=== PATIENT | female | born 1960 | race Caucasian/White ===

== ENCOUNTER 2017-01-21 18:51 | Inpatient (IN) | payer MEDICARE, OTHER ==
[~2017-01-21] VITALS: Ht 157.5 cm; Wt 102.1 kg
[~2017-01-21 18:51] MED LIST: ACET-1574 PO; ACIDOPHILUS PROB1 MG PO; ASCO10002 PO; ASCO500T3 PO; BREO ELLIPTA 11 EACH IH; BUPR1PAT8 TP; CALC-128 AD; CALC500T PO; CHOL20009 PO; CYAN25008 INJ; DICY20TA30 PO; DIPH25CA3 PO; ESZO3TAB28 PO; FAMO20TA5 PO; FLAX10003 PO; FLUT1DIS IH; GABA-586 PO; GABA600T2 PO; GEMF600T3 PO; INSU100C SQ; LACT100C2 PO; LACT1CAP2 PO; LACT20SO PO; LEVO100T5 PO; LORA0.5T PO; MECL25TA3 PO; METR500T PO; MIDO5TAB; MIDO5TAB PO; MULT-290 PO; NYST15CR TP; OMEG1CAP38 PO; ONDA4TAB11; ONDA4TAB12 PO; OXYC-328 PO; OXYC10TA45 PO; OXYC5CAP PO; OXYC5TAB; PRAV40TA2 PO; PRIM250T PO; PROAIR HFA8.5 GM IH; RANI150T2 PO; RIFA550T4 PO; SUCR1TAB PO; SUMA100T3 PO; SUMA100T4 PO; SUMA25TA4 PO; SUMA5SPR2 INJ; SUMA6CAR SQ; SUVO10TA PO; TIZA4CAP PO; TOPI200C PO; TOPI25CA11 PO; TOPI25CA5 PO; VANC125C10 PO; VILA40TA PO; imitrex SUBCUT; vit B
[2017-01-21] MEDS ORDERED: ALTEPLASE 2 MG VIAL INT CAT ONE (19:30)
[2017-01-21 19:50] LABS: BASO # 0.1 x10^3/uL (0.0-0.2); BASO % 1 % (0-3); EOS % 1 % (0-3); HEMATOCRIT 24.8 % (36.0-47.0); HEMOGLOBIN 7.8 g/dL (12.0-15.5); LYMPH % 20 % (24-48); MEAN CORPUSCULAR HEMOGLOBIN 25 pg (25-35); MEAN CORPUSCULAR HGB CONC 32 g/dL (31-37); MEAN CORPUSCULAR VOLUME 78 fL (79-100); MONO % 8 % (0-9); NEUT % 70 % (31-73); PLATELET COUNT 184 x10^3/uL (140-400); RED BLOOD COUNT 3.17 x10^6/uL (3.50-5.40); RED CELL DISTRIBUTION WIDTH 18.6 % (11.5-14.5); WHITE BLOOD COUNT 10.1 x10^3/uL (4.0-11.0)
[2017-01-21 19:59] LABS: PROTHROMBIN TIME PATIENT 12.3 SEC (11.7-14.0)
[2017-01-21 20:03] LABS: CALCIUM 8.2 mg/dL (8.5-10.1); CREATININE 0.6 mg/dL (0.6-1.0); GFR 104.2; POTASSIUM 4.5 mmol/L (3.5-5.1)
[2017-01-21 20:11] LABS: ALBUMIN 2.8 g/dL (3.4-5.0); ALBUMIN/GLOBULIN RATIO 0.6 (1.0-1.7); MAGNESIUM 1.7 mg/dL (1.8-2.4); TOTAL BILIRUBIN 0.2 mg/dL (0.2-1.0); TOTAL PROTEIN 7.4 g/dL (6.4-8.2)
[2017-01-21] MEDS ORDERED: ONDANSETRON PF 4 MG/2 ML VIAL. IV PRN ×2 (21:00→22:00)
--- NOTE | 2017-01-21 21:27 | PHYS DOC ---
Past Medical History Past Medical History: Arthritis, Asthma, Depression, Diabetes-Type II, Fibromyalgia, GERD, Hypothyroid, Migraines Past Surgical History: Appendectomy, Cholecystectomy, Colectomy, Tonsillectomy Additional Past Surgical Histo: hernia, carpal tunnel, Alcohol Use: None Drug Use: None Adult General Chief Complaint Chief Complaint: POST-OP PROBLEM HPI HPI Patient is a 56 year old female presenting to the emergency department for 2 main complaints first being is that her right port does not work as she is TPN dependent. She went to [employer] yesterday and they used Cathflo to get to work however stopped working again today. She also says that she is anemic and her doctor told her hemoglobin is 7 and that she needs to come to the emergency department for further evaluation. Says that she is somewhat tired and short of breath but denies any nausea vomiting diarrhea dysuria hematuria fevers chills. She denies any black or bloody stools. Review of Systems Review of Systems Constitutional: Denies fever or chills [] Eyes: Denies change in visual acuity, redness, or eye pain [] HENT: Denies nasal congestion or sore throat [] Respiratory: Denies cough. + shortness of breath [] Cardiovascular: No additional information not addressed in HPI [] GI: Denies abdominal pain, nausea, vomiting, bloody stools or diarrhea [] : Denies dysuria or hematuria [] Musculoskeletal: Denies back pain or joint pain [] Integument: Denies rash or skin lesions [] Neurologic: Denies headache, focal weakness or sensory changes [] Current Medications Current Medications Current Medications Medications (Trade) Dose Ordered Sig/Sheri Start Time Stop Time Status Last Admin Dose Admin Alteplase, Recombinant (Cathflo) 2 mg 1X ONCE 01/21/17 19:30 01/21/17 19:31 DC 01/21/17 19:30 2 MG Ondansetron HCl (Zofran) 4 mg PRN Q8HRS PRN 01/21/17 21:00 01/22/17 20:59 Allergies Allergies Allergies Coded Allergies Type Severity Reaction Last Updated Verified aspirin Allergy Intermediate 08/30/15 Yes celecoxib Allergy Intermediate 08/30/15 Yes ibuprofen Allergy Intermediate 08/30/15 Yes rofecoxib Allergy Intermediate 08/30/15 Yes zolpidem tartrate Allergy Intermediate 08/30/15 Yes Physical Exam Physical Exam Constitutional: Chronically ill and morbidly obese HENT: Normocephalic, atraumatic, bilateral external ears normal, oropharynx moist, no oral exudates, nose normal. [] Eyes: PERRLA, EOMI, conjunctiva normal, no discharge. [] Neck: Normal range of motion, no tenderness, supple, no stridor. [] Cardiovascular:Heart rate regular rhythm, no murmur [] Lungs & Thorax: Bilateral breath sounds clear to auscultation [] Abdomen: Bowel sounds normal, soft, no tenderness, no masses, no pulsatile masses. [] Skin: Warm, dry, no erythema, no rash. [] Back: No tenderness, no CVA tenderness. [] Extremities: No tenderness, no cyanosis, no clubbing, ROM intact, no edema. [] Neurologic: Alert and oriented X 3, normal motor function, normal sensory function, no focal deficits noted. [] Current Patient Data Vital Signs Vital Signs Date Time Temp Pulse Resp B/P (MAP) Pulse Ox O2 Delivery O2 Flow Rate FiO2 01/21/17 19:00 98.3 87 18 110/65 (80) 97 Room Air 98.3 Lab Values Laboratory Tests Test 01/21/17 19:42 White Blood Count 10.1 x10^3/uL (4.0-11.0) Red Blood Count 3.17 x10^6/uL (3.50-5.40) L Hemoglobin 7.8 g/dL (12.0-15.5) L Hematocrit 24.8 % (36.0-47.0) L Mean Corpuscular Volume 78 fL (79-100) L Mean Corpuscular Hemoglobin 25 pg (25-35) Mean Corpuscular Hemoglobin Concent 32 g/dL (31-37) Red Cell Distribution Width 18.6 % (11.5-14.5) H Platelet Count 184 x10^3/uL (140-400) Neutrophils (%) (Auto) 70 % (31-73) Lymphocytes (%) (Auto) 20 % (24-48) L Monocytes (%) (Auto) 8 % (0-9) Eosinophils (%) (Auto) 1 % (0-3) Basophils (%) (Auto) 1 % (0-3) Neutrophils # (Auto) 7.1 x10^3uL (1.8-7.7) Lymphocytes # (Auto) 2.0 x10^3/uL (1.0-4.8) Monocytes # (Auto) 0.8 x10^3/uL (0.0-1.1) Eosinophils # (Auto) 0.1 x10^3/uL (0.0-0.7) Basophils # (Auto) 0.1 x10^3/uL (0.0-0.2) Prothrombin Time 12.3 SEC (11.7-14.0) Prothrombin Time INR 1.0 (0.8-1.1) PTT 30 SEC (24-38) Sodium Level 137 mmol/L (136-145) Potassium Level 4.5 mmol/L (3.5-5.1) Chloride Level 102 mmol/L (98-107) Carbon Dioxide Level 26 mmol/L (21-32) Anion Gap 9 (6-14) Blood Urea Nitrogen 20 mg/dL (7-20) Creatinine 0.6 mg/dL (0.6-1.0) Estimated GFR (Cockcroft-Gault) 104.2 BUN/Creatinine Ratio 33 (6-20) H Glucose Level 91 mg/dL (70-99) Calcium Level 8.2 mg/dL (8.5-10.1) L Magnesium Level 1.7 mg/dL (1.8-2.4) L Total Bilirubin 0.2 mg/dL (0.2-1.0) Aspartate Amino Transferase (AST) 13 U/L (15-37) L Alanine Aminotransferase (ALT) 13 U/L (14-59) L Alkaline Phosphatase 110 U/L (46-116) Creatine Kinase 13 U/L (26-192) L Total Protein 7.4 g/dL (6.4-8.2) Albumin 2.8 g/dL (3.4-5.0) L Albumin/Globulin Ratio 0.6 (1.0-1.7) L Lipase 76 U/L (73-393) Thyroid Stimulating Hormone (TSH) 2.353 uIU/mL (0.358-3.74) Laboratory Tests 01/21/17 19:42 Laboratory Tests 01/21/17 19:42 EKG EKG [] Radiology/Procedures Radiology/Procedures [] Course & Med Decision Making Course & Med Decision Making Will admit for interventional cardiology consultation. Dragon Disclaimer Dragon Disclaimer This electronic medical record was generated, in whole or in part, using a voice recognition dictation system. Departure Departure Impression: Primary Impression: Anemia Additional Impression: Malfunction of portocaval shunt Disposition: 09 ADMITTED INPATIENT Admitting Physician: Etelvina Nance Condition: STABLE Referrals: ADILENE WEAVER DO (PCP) Problem Qualifiers Primary Impression: Anemia Anemia type: unspecified type Qualified Codes: D64.9 - Anemia, unspecified RHETT VARNER DO Jan 21, 2017 21:26
[2017-01-21] MEDS ORDERED: MORPHINE SULFATE 2 MG/ML DISP.SYRIN. IV PRN (22:00)
[2017-01-21] MEDS ORDERED: DOCUSATE SODIUM 100 MG CAPSULE. PO PRN (22:00)
[2017-01-21] MEDS ORDERED: traMADol 50 MG TABLET PO PRN (22:00)
[2017-01-21] MEDS ORDERED: ACETAMINOPHEN 325 MG TABLET. PO PRN (22:00)
[2017-01-21] MEDS ORDERED: hydrALAZINE 20 MG/ML VIAL. IVP PRN (22:00)
[2017-01-21] MEDS ORDERED: NON FORMULARY ITEM (Albuterol Sulfate (Proair Hfa Inhaler) 2 PUFF) IH PRN (22:00)
[2017-01-21] MEDS ORDERED: ALBUTEROL SULFATE 2.5 MG/3 ML NEBU. NEB PRN (22:00)
--- NOTE | 2017-01-21 22:01 | PDOC1 ---
History and Physical Date of Admission Date of Admission 01/21/17 Identification/Chief Complaint Chief Complaint right upper chest PICC line not working Problems: Source Source: Chart review, Patient History of Present Illness History of Present Illness HPI HPI Patient is a 56 year old female presenting to the emergency department for right upper chest PICC lien not working. Pt has been in and out of many hosp many times this year as per pt. 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 Pt was in [place] [facility] yesterday for same reason ,said PICC line was working a little bit, but not today, then came to ER here. She also has multiple non specific complains , including h/o fibromyalgia with chronic pain, abd pain, weakness, anemia but cannot take po iron with stomachache, some cough , sob. fever, T 101 at home, not here. denies melena, or bloody stool. fu with dr. Conn for gi problem. she looks mild lethagic to answer my question , not sure if this is her baseline. wheelchair bound. Past Medical History Pulmonary: COPD CENTRAL NERVOUS SYSTEM: Other Heme/Onc: Anemia NOS Psych: Anxiety, Depression, Other Rheumatologic: Fibromyalgia Infectious disease: Other Renal/: Acute renal failure Endocrine: Diabetes, Hypothyroidism Past Surgical History Past Surgical History: Appendectomy, Cholecystectomy, Cataract Removal, Tonsillectomy, Colon Resection, Other Family History Family History: Other Social History Smoke: No ALCOHOL: none Drugs: None Current Problem List Problem List Problems Medical Problems: (1) Malfunction of portocaval shunt Status: Acute Current Medications Current Medications Current Medications Medications (Trade) Dose Ordered Sig/Sheri Start Time Stop Time Status Last Admin Dose Admin Alteplase, Recombinant (Cathflo) 2 mg 1X ONCE 01/21/17 19:30 01/21/17 19:31 DC 01/21/17 19:30 2 MG Non-Formulary Medication 1 puff DAILY 01/22/17 09:00 UNV Ondansetron HCl (Zofran) 4 mg PRN Q8HRS PRN 01/21/17 21:00 01/22/17 20:59 Allergies Allergies Allergies Coded Allergies Type Severity Reaction Last Updated Verified aspirin Allergy Intermediate 08/30/15 Yes celecoxib Allergy Intermediate 08/30/15 Yes ibuprofen Allergy Intermediate 2/18/16 Yes rofecoxib Allergy Intermediate 08/30/15 Yes zolpidem tartrate Allergy Intermediate 08/30/15 Yes ROS Review of System CONSTITUTIONAL: No fever or chills EYES: No recent changes SKIN: No rash or itching CARDIOVASCULAR: No chest pain, syncope, palpitations, or edema RESPIRATORY: No SOB or cough GASTROINTESTINAL: No nausea, vomiting or abdominal pain NEUROLOGICAL: No headaches or weakness ENDOCRINE: No cold or heat intolerance GENITOURINARY: No urgency or frequency of urination MUSCULOSKELETAL: No back pain or joint pain LYMPHATICS: No enlarged lymph nodes PSYCHIATRIC: No anxiety or depression Physical Exam Physical Exam GEN.: No apparent distress. Alert and oriented. mild lethargic HEENT: Head is normocephalic, atraumatic NECK: Supple. LUNGS: Clear to auscultation. right upper chest port. HEART: RRR, S1, S2 present. Peripheral pulses intact ABDOMEN: Soft, Positive bowel sounds. diffuse mild abd tenderness EXTREMITIES: Without any cyanosis. NEUROLOGIC: Normal speech, normal tone PSYCHIATRIC: Normal affect, normal mood. SKIN: No ulcerations Vitals Vitals Vital Signs Date Time Temp Pulse Resp B/P (MAP) Pulse Ox O2 Delivery O2 Flow Rate FiO2 01/21/17 19:00 98.3 87 18 110/65 (80) 97 Room Air 98.3 Labs Labs Laboratory Tests Test 01/21/17 19:42 White Blood Count 10.1 x10^3/uL (4.0-11.0) Red Blood Count 3.17 x10^6/uL (3.50-5.40) Hemoglobin 7.8 g/dL (12.0-15.5) Hematocrit 24.8 % (36.0-47.0) Mean Corpuscular Volume 78 fL (79-100) Mean Corpuscular Hemoglobin 25 pg (25-35) Mean Corpuscular Hemoglobin Concent 32 g/dL (31-37) Red Cell Distribution Width 18.6 % (11.5-14.5) Platelet Count 184 x10^3/uL (140-400) Neutrophils (%) (Auto) 70 % (31-73) Lymphocytes (%) (Auto) 20 % (24-48) Monocytes (%) (Auto) 8 % (0-9) Eosinophils (%) (Auto) 1 % (0-3) Basophils (%) (Auto) 1 % (0-3) Neutrophils # (Auto) 7.1 x10^3uL (1.8-7.7) Lymphocytes # (Auto) 2.0 x10^3/uL (1.0-4.8) Monocytes # (Auto) 0.8 x10^3/uL (0.0-1.1) Eosinophils # (Auto) 0.1 x10^3/uL (0.0-0.7) Basophils # (Auto) 0.1 x10^3/uL (0.0-0.2) Prothrombin Time 12.3 SEC (11.7-14.0) Prothromb Time International Ratio 1.0 (0.8-1.1) Activated Partial Thromboplast Time 30 SEC (24-38) Sodium Level 137 mmol/L (136-145) Potassium Level 4.5 mmol/L (3.5-5.1) Chloride Level 102 mmol/L (98-107) Carbon Dioxide Level 26 mmol/L (21-32) Anion Gap 9 (6-14) Blood Urea Nitrogen 20 mg/dL (7-20) Creatinine 0.6 mg/dL (0.6-1.0) Estimated GFR (Cockcroft-Gault) 104.2 BUN/Creatinine Ratio 33 (6-20) Glucose Level 91 mg/dL (70-99) Calcium Level 8.2 mg/dL (8.5-10.1) Magnesium Level 1.7 mg/dL (1.8-2.4) Total Bilirubin 0.2 mg/dL (0.2-1.0) Aspartate Amino Transf (AST/SGOT) 13 U/L (15-37) Alanine Aminotransferase (ALT/SGPT) 13 U/L (14-59) Alkaline Phosphatase 110 U/L (46-116) Creatine Kinase 13 U/L (26-192) Total Protein 7.4 g/dL (6.4-8.2) Albumin 2.8 g/dL (3.4-5.0) Albumin/Globulin Ratio 0.6 (1.0-1.7) Lipase 76 U/L (73-393) Thyroid Stimulating Hormone (TSH) 2.353 uIU/mL (0.358-3.74) Laboratory Tests Test 01/21/17 19:42 White Blood Count 10.1 x10^3/uL (4.0-11.0) Red Blood Count 3.17 x10^6/uL (3.50-5.40) Hemoglobin 7.8 g/dL (12.0-15.5) Hematocrit 24.8 % (36.0-47.0) Mean Corpuscular Volume 78 fL (79-100) Mean Corpuscular Hemoglobin 25 pg (25-35) Mean Corpuscular Hemoglobin Concent 32 g/dL (31-37) Red Cell Distribution Width 18.6 % (11.5-14.5) Platelet Count 184 x10^3/uL (140-400) Neutrophils (%) (Auto) 70 % (31-73) Lymphocytes (%) (Auto) 20 % (24-48) Monocytes (%) (Auto) 8 % (0-9) Eosinophils (%) (Auto) 1 % (0-3) Basophils (%) (Auto) 1 % (0-3) Neutrophils # (Auto) 7.1 x10^3uL (1.8-7.7) Lymphocytes # (Auto) 2.0 x10^3/uL (1.0-4.8) Monocytes # (Auto) 0.8 x10^3/uL (0.0-1.1) Eosinophils # (Auto) 0.1 x10^3/uL (0.0-0.7) Basophils # (Auto) 0.1 x10^3/uL (0.0-0.2) Prothrombin Time 12.3 SEC (11.7-14.0) Prothromb Time International Ratio 1.0 (0.8-1.1) Activated Partial Thromboplast Time 30 SEC (24-38) Sodium Level 137 mmol/L (136-145) Potassium Level 4.5 mmol/L (3.5-5.1) Chloride Level 102 mmol/L (98-107) Carbon Dioxide Level 26 mmol/L (21-32) Anion Gap 9 (6-14) Blood Urea Nitrogen 20 mg/dL (7-20) Creatinine 0.6 mg/dL (0.6-1.0) Estimated GFR (Cockcroft-Gault) 104.2 BUN/Creatinine Ratio 33 (6-20) Glucose Level 91 mg/dL (70-99) Calcium Level 8.2 mg/dL (8.5-10.1) Magnesium Level 1.7 mg/dL (1.8-2.4) Total Bilirubin 0.2 mg/dL (0.2-1.0) Aspartate Amino Transf (AST/SGOT) 13 U/L (15-37) Alanine Aminotransferase (ALT/SGPT) 13 U/L (14-59) Alkaline Phosphatase 110 U/L (46-116) Creatine Kinase 13 U/L (26-192) Total Protein 7.4 g/dL (6.4-8.2) Albumin 2.8 g/dL (3.4-5.0) Albumin/Globulin Ratio 0.6 (1.0-1.7) Lipase 76 U/L (73-393) Thyroid Stimulating Hormone (TSH) 2.353 uIU/mL (0.358-3.74) VTE Prophylaxis Ordered VTE Prophylaxis Devices: Yes VTE Pharmacological Prophylaxi: Yes Assessment/Plan Assessment/Plan Dysfunction of PICC line chronic anemia with GIB? 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 chronically wheelchair bound morbid obesity plan: IR consult asked nurse to check home meds, if really take them , resume them anemia work up npo ivf glenis villatoro in 1-2ds ASHA SCHULTZ MD Jan 21, 2017 22:01
[2017-01-21] MEDS ORDERED: MAGNESIUM SULFATE 2GM 50 ML IV ONE (22:15)
[2017-01-21] MEDS ORDERED: IV NORMAL SALINE 1000ML BAG 1,000 ML IV ONE (22:15)
[2017-01-21 23:00] VITALS: BP 93/52
[2017-01-21] MEDS ORDERED: ONDANSETRON ODT 4 MG TAB.RAPDIS. PO PRN (23:30)
[2017-01-21] MEDS ORDERED: SUMAtriptan SUCCINATE 100 MG TABLET PO PRN (23:30)
[2017-01-21] MEDS ORDERED: FLUT1DIS IH (23:39)
[2017-01-21] MEDS ORDERED: DIPH25CA58 PO (23:39)
[2017-01-21] MEDS ORDERED: PANT40TA3 PO (23:39)
[2017-01-21] MEDS ORDERED: CARI350T14 PO (23:39)
[2017-01-21] MEDS ORDERED: BACL10TA PO (23:39)
[2017-01-21] MEDS ORDERED: PROM25TA10 PO (23:39)
[2017-01-21] MEDS ORDERED: MIDO5TAB PO (23:39)
[2017-01-21] MEDS ORDERED: TOPI200C PO (23:39)
[2017-01-21] MEDS ORDERED: CYAN10002 IM (23:39)
[2017-01-21] MEDS ORDERED: OM-31CAP7 PO (23:39)
[2017-01-21] MEDS ORDERED: MAGNESIUM OXIDE 400 MG TABLET PO ONE (23:55)
[2017-01-22] MEDS ORDERED: BACLOFEN 10 MG TABLET. PO ONE (00:15)
[2017-01-22] MEDS ORDERED: oxyCODONE IR 5 MG TABLET PO ONE (00:15)
[2017-01-22] MEDS ORDERED: PANTOPRAZOLE 40 MG TABLET.DR. PO ONE (00:15)
[2017-01-22] MEDS ORDERED: MIDODRINE 5 MG TABLET PO ONE (00:15)
[2017-01-22] MEDS ORDERED: PRIMIDONE 250 MG TABLET PO ONE (00:15)
[2017-01-22 03:00] VITALS: BP 99/55
--- NOTE | 2017-01-22 04:46 | ACF ---
Admission Forms Criteria ANEMIA, IRON DEFICIENCY OR UNSPECIFIED Clinical Indications for Inpatient Care (Place 'X' for any and all applicable criteria): Admission is indicated for ANY ONE of the following(1)(2)(3)(4)(5)(6)(7): [X] I. Inpatient admission required rather than observation care (Also use Anemia, Iron Deficiency or Unspecified: Observation Care guideline as appropriate) because of ANY ONE of the following: [] a) Hemodynamic instability that is severe or persistent [] b) Active bleeding that cannot be rapidly controlled [] c) CVS symptoms (i.e., dyspnea, chest pain, heart failure) that are severe or persistent [] d) Neurologic symptoms (i.e., cognitive impairment, recurrent syncope or near syncope) that are severe or persistent [] e) Cardiac arrhythmias of immediate concern [] f) Acute peripheral ischemia (e.g., pulseless, cool, mottled, or cyanotic extremity) [] g) High-risk low platelet count [] h) Acute renal failure [] i) Ongoing transfusion for blood loss (greater than 2 units) [] j) IV fluid to replace significant ongoing (eg, >24 hours) losses (> 3 L/m2 per day) [] k) Pulmonary artery catheter monitoring [] l) Supplemental oxygen or respiratory treatments for over 24 hours that are performable only in acute inpatient setting [] m) Immediate inpatient surgery [X] n) Other condition, treatment or monitoring requiring inpatient admission [] II Active massive hemorrhage [] III. Active hemolysis with rapidly progressive anemia [A](6) Extended stay beyond goal length of stay may be needed for (17)(18) []a) Diagnosed cause of anemia requiring longer hospitalization (eg, active GI bleeding, immune hemolysis requiring electrophoresis, complications of malignancy requiring acute care []b) Continued emergent anemia indicators (23) []c) Transfusion reactions []d) Associated leukopenia or thrombocytopenia needing inpatient care []e) Active comorbidities (eg, renal failure, heart failure) The original [facility] Care Guidelines content created by [facility] Care Guidelines has been revised. The portions of the content which have been revised are identified through the use of italic text or in bold. [facility] Guidelines has neither reviewed nor approved the modified material. All other unmodified content is copyright [facility] Care Guidelines. Please see references footnoted in the original [facility] edition 2016 Admission Criteria Met?: Yes MARÍA BLAKE Jan 22, 2017 04:46
[2017-01-22] MEDS ORDERED: METHYL SALICYLATE/MENTHOL TOPICAL OINTMENT 29GM TUBE. TP PRN (05:00)
[2017-01-22] MEDS ORDERED: BACLOFEN 10 MG TABLET. PO PRN (06:00)
[2017-01-22] MEDS ORDERED: MIDODRINE 5 MG TABLET PO PRN (06:00)
[2017-01-22] MEDS ORDERED: LEVOTHYROXINE 100 MCG TABLET PO SCH (06:00)
[2017-01-22] MEDS: ALBUTEROL SULFATE 2.5 MG/3 ML NEBU. NEB SCH ×3 (06:53→15:22)
[2017-01-22 07:00] VITALS: BP 92/52
[2017-01-22] MEDS: SUCRALFATE 1 GM TABLET. PO SCH ×3 (07:30→16:23)
[2017-01-22] MEDS ORDERED: BUDESONIDE 0.5 MG/2 ML NEBU. NEB SCH (08:00)
[2017-01-22] MEDS ORDERED: MAGNESIUM OXIDE 400 MG TABLET PO ONE (08:00)
[2017-01-22] MEDS: oxyCODONE IR 5 MG TABLET PO PRN ×2 (08:13→16:23)
[2017-01-22] MEDS: MIDODRINE 5 MG TABLET PO SCH ×2 (08:36→12:32)
[2017-01-22] MEDS ORDERED: NON FORMULARY ITEM (Vilazodone Hydrochloride (Viibryd) 1 TAB) PO SCH (09:00)
[2017-01-22] MEDS ORDERED: PRIMIDONE 250 MG TABLET PO SCH ×2 (09:00)
[2017-01-22] MEDS ORDERED: NON FORMULARY ITEM (Fluticasone/Vilanterol (Breo Ellipta 100-25 Mcg Inh) 1 PUFF) IH SCH (09:00)
[2017-01-22] MEDS ORDERED: FAMOTIDINE 20 MG TABLET. PO SCH (09:00)
[2017-01-22] MEDS ORDERED: LIDOCAINE 1%/EPI 1:100,000 20 ML VIAL. ONE (10:16)
[2017-01-22] MEDS ORDERED: HEPARIN PF 500 UNIT/5 ML DISP.SYRIN. IV ONE (10:16)
[2017-01-22] MEDS ORDERED: HEPARIN for ARTERIAL LINE 0 ML ONE (10:16)
--- NOTE | 2017-01-22 10:18 | PDOC3 ---
Discharge Summary Visit Information Date of Admission: Jan 21, 2017 Date of Discharge: Jan 22, 2017 Admitting Diagnosis Comment: Dysfunction of PICC line chronic anemia with GIB? 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 chronically wheelchair bound morbid obesity Final Diagnosis Problems Medical Problems: (1) Malfunction of portocaval shunt Status: Acute Brief Hospital Course Allergies Allergies Coded Allergies Type Severity Reaction Last Updated Verified aspirin Allergy Intermediate 08/30/15 Yes celecoxib Allergy Intermediate 08/30/15 Yes ibuprofen Allergy Intermediate 08/30/15 Yes rofecoxib Allergy Intermediate 08/30/15 Yes zolpidem tartrate Allergy Intermediate 08/30/15 Yes Vital Signs Vital Signs Date Time Temp Pulse Resp B/P (MAP) Pulse Ox O2 Delivery O2 Flow Rate FiO2 01/22/17 08:36 83 92/52 01/22/17 08:13 Room Air 01/22/17 07:00 98.3 19 95 98.3 Lab Results Laboratory Tests Test 01/21/17 19:42 White Blood Count 10.1 x10^3/uL (4.0-11.0) Red Blood Count 3.17 x10^6/uL (3.50-5.40) Hemoglobin 7.8 g/dL (12.0-15.5) Hematocrit 24.8 % (36.0-47.0) Mean Corpuscular Volume 78 fL (79-100) Mean Corpuscular Hemoglobin 25 pg (25-35) Mean Corpuscular Hemoglobin Concent 32 g/dL (31-37) Red Cell Distribution Width 18.6 % (11.5-14.5) Platelet Count 184 x10^3/uL (140-400) Neutrophils (%) (Auto) 70 % (31-73) Lymphocytes (%) (Auto) 20 % (24-48) Monocytes (%) (Auto) 8 % (0-9) Eosinophils (%) (Auto) 1 % (0-3) Basophils (%) (Auto) 1 % (0-3) Neutrophils # (Auto) 7.1 x10^3uL (1.8-7.7) Lymphocytes # (Auto) 2.0 x10^3/uL (1.0-4.8) Monocytes # (Auto) 0.8 x10^3/uL (0.0-1.1) Eosinophils # (Auto) 0.1 x10^3/uL (0.0-0.7) Basophils # (Auto) 0.1 x10^3/uL (0.0-0.2) Prothrombin Time 12.3 SEC (11.7-14.0) Prothromb Time International Ratio 1.0 (0.8-1.1) Activated Partial Thromboplast Time 30 SEC (24-38) Sodium Level 137 mmol/L (136-145) Potassium Level 4.5 mmol/L (3.5-5.1) Chloride Level 102 mmol/L (98-107) Carbon Dioxide Level 26 mmol/L (21-32) Anion Gap 9 (6-14) Blood Urea Nitrogen 20 mg/dL (7-20) Creatinine 0.6 mg/dL (0.6-1.0) Estimated GFR (Cockcroft-Gault) 104.2 BUN/Creatinine Ratio 33 (6-20) Glucose Level 91 mg/dL (70-99) Calcium Level 8.2 mg/dL (8.5-10.1) Magnesium Level 1.7 mg/dL (1.8-2.4) Total Bilirubin 0.2 mg/dL (0.2-1.0) Aspartate Amino Transf (AST/SGOT) 13 U/L (15-37) Alanine Aminotransferase (ALT/SGPT) 13 U/L (14-59) Alkaline Phosphatase 110 U/L (46-116) Creatine Kinase 13 U/L (26-192) Total Protein 7.4 g/dL (6.4-8.2) Albumin 2.8 g/dL (3.4-5.0) Albumin/Globulin Ratio 0.6 (1.0-1.7) Lipase 76 U/L (73-393) Thyroid Stimulating Hormone (TSH) 2.353 uIU/mL (0.358-3.74) Laboratory Tests Test 01/21/17 19:42 White Blood Count 10.1 x10^3/uL (4.0-11.0) Red Blood Count 3.17 x10^6/uL (3.50-5.40) Hemoglobin 7.8 g/dL (12.0-15.5) Hematocrit 24.8 % (36.0-47.0) Mean Corpuscular Volume 78 fL (79-100) Mean Corpuscular Hemoglobin 25 pg (25-35) Mean Corpuscular Hemoglobin Concent 32 g/dL (31-37) Red Cell Distribution Width 18.6 % (11.5-14.5) Platelet Count 184 x10^3/uL (140-400) Neutrophils (%) (Auto) 70 % (31-73) Lymphocytes (%) (Auto) 20 % (24-48) Monocytes (%) (Auto) 8 % (0-9) Eosinophils (%) (Auto) 1 % (0-3) Basophils (%) (Auto) 1 % (0-3) Neutrophils # (Auto) 7.1 x10^3uL (1.8-7.7) Lymphocytes # (Auto) 2.0 x10^3/uL (1.0-4.8) Monocytes # (Auto) 0.8 x10^3/uL (0.0-1.1) Eosinophils # (Auto) 0.1 x10^3/uL (0.0-0.7) Basophils # (Auto) 0.1 x10^3/uL (0.0-0.2) Prothrombin Time 12.3 SEC (11.7-14.0) Prothromb Time International Ratio 1.0 (0.8-1.1) Activated Partial Thromboplast Time 30 SEC (24-38) Sodium Level 137 mmol/L (136-145) Potassium Level 4.5 mmol/L (3.5-5.1) Chloride Level 102 mmol/L (98-107) Carbon Dioxide Level 26 mmol/L (21-32) Anion Gap 9 (6-14) Blood Urea Nitrogen 20 mg/dL (7-20) Creatinine 0.6 mg/dL (0.6-1.0) Estimated GFR (Cockcroft-Gault) 104.2 BUN/Creatinine Ratio 33 (6-20) Glucose Level 91 mg/dL (70-99) Calcium Level 8.2 mg/dL (8.5-10.1) Magnesium Level 1.7 mg/dL (1.8-2.4) Total Bilirubin 0.2 mg/dL (0.2-1.0) Aspartate Amino Transf (AST/SGOT) 13 U/L (15-37) Alanine Aminotransferase (ALT/SGPT) 13 U/L (14-59) Alkaline Phosphatase 110 U/L (46-116) Creatine Kinase 13 U/L (26-192) Total Protein 7.4 g/dL (6.4-8.2) Albumin 2.8 g/dL (3.4-5.0) Albumin/Globulin Ratio 0.6 (1.0-1.7) Lipase 76 U/L (73-393) Thyroid Stimulating Hormone (TSH) 2.353 uIU/mL (0.358-3.74) Brief Hospital Course Ms. Swift is a 56 old female, ambulates with wheelchair admitted for dysfunctioning port-a-cath. She has that because she gets tPN regularly as oP (weekly?). NO other issues. Once Julio cath has been replaced., will send back home with current home arrangements, Pt seen and examined Discharge Information Condition at Discharge: Improved, Stable Disposition/Orders: D/C to Home Scheduled Ascorbic Acid (Ascorbic Acid), 500 MG PO DAILY, (Reported) Buprenorphine (Butrans), 1 PATCH TP WEEKLY, (Reported) Carisoprodol (Carisoprodol), 1 TAB PO TID, (Reported) Cyanocobalamin (Vitamin B-12) (Cyanocobalamin Injection), 1 ML IM QMONTH, ( Reported) Diphenhydramine Hcl (Benadryl), 25 MG PO TID, (Reported) Fluticasone/Salmeterol (Advair 100-50 Diskus), 1 PUFF IH BID, (Reported) Fluticasone/Vilanterol (Breo Ellipta 100-25 Mcg Inh), 1 PUFF IH DAILY, (Reported ) Gemfibrozil (Gemfibrozil), 600 MG PO BID, (Reported) Levothyroxine Sodium (Levothyroxine Sodium), 1 TAB PO DAILY, (Reported) Midodrine Hcl (Midodrine Hcl), 5 MG PO TID, (Reported) Om-3/Dha/Epa/Fish Oil/L. Casei (Restora Capsule), 1 EACH PO DAILY08, (Reported) Pantoprazole Sodium (Protonix), 1 TAB PO DAILY, (Reported) Pravastatin Sodium (Pravastatin Sodium), 1 TAB PO QHS, (Reported) Primidone (Primidone), 250 MG PO TID, (Reported) Promethazine Hcl (Promethazine Hcl), 1 TAB PO PRN Q6HRS, (Reported) Ranitidine Hcl (Ranitidine Hcl), 1 TAB PO BID, (Reported) Sucralfate (Sucralfate), 1 TAB PO TIDAC, (Reported) Topiramate (Trokendi Xr), 200 MG PO DAILY08, (Reported) Vilazodone Hydrochloride (Viibryd), 1 TAB PO DAILY, (Reported) Scheduled PRN Acetaminophen Er (Acetaminophen Ext.release), 650 MG PO PRN Q8HRS PRN for PAIN, (Reported) Albuterol Sulfate (Proair Hfa Inhaler), 2 PUFF IH PRN QID PRN for SHORTNESS OF BREATH, (Reported) Baclofen (Baclofen), 1 TAB PO TID PRN for MUSCLE SPASMS, (Reported) Midodrine Hcl (Midodrine Hcl), 5 MG PO PRN TID PRN for PER PROTOCOL, (Reported) Ondansetron (Ondansetron Odt), 4 MG PO QID PRN for NAUSEA, (Reported) Oxycodone Hcl (Oxycodone Hcl), 20 CAP PO TID PRN for PAIN, (Reported) Sumatriptan Succinate (Sumatriptan Succinate), 1 TAB PO Q6-8HRS PRN for MIGRAINE HEADACHE, (Reported) Discontinued Medications Gabapentin (Gabapentin), 600 MG PO TID, (Reported) Lactobacillus Acidophilus (Acidophilus Probiotic), 2 MG PO BID, (Reported) Metronidazole (Flagyl), 500 MG PO TID, (Reported) Multivitamin With Minerals (One Daily 50 Plus), 1 EACH PO DAILY, (Reported) Suvorexant (Belsomra), 10 MG PO HS, (Reported) Topiramate (Topiramate ER), 25 MG PO HS, (Reported) DHAVAL MINA MD Jan 22, 2017 10:18
--- NOTE | 2017-01-22 10:45 | PDOC ---
IR PROGRESS NOTE Current Problem List Problem List Problems Medical Problems: (1) Malfunction of portocaval shunt Status: Acute Objective Objective Vital Signs Date Time Temp Pulse Resp B/P (MAP) Pulse Ox O2 Delivery O2 Flow Rate FiO2 01/22/17 08:36 83 92/52 01/22/17 08:13 Room Air 01/22/17 07:00 98.3 19 95 98.3 Intake and Output 01/22/17 07:00 Intake Total 0 ml Output Total 500 ml Balance -500 ml Intake Oral 0 ml Output Urine Total 500 ml Comment Review of Relevant I have reviewed the following items norma (where applicable) has been applied. Labs Laboratory Tests Test 01/21/17 19:42 White Blood Count 10.1 x10^3/uL (4.0-11.0) Red Blood Count 3.17 x10^6/uL (3.50-5.40) Hemoglobin 7.8 g/dL (12.0-15.5) Hematocrit 24.8 % (36.0-47.0) Mean Corpuscular Volume 78 fL (79-100) Mean Corpuscular Hemoglobin 25 pg (25-35) Mean Corpuscular Hemoglobin Concent 32 g/dL (31-37) Red Cell Distribution Width 18.6 % (11.5-14.5) Platelet Count 184 x10^3/uL (140-400) Neutrophils (%) (Auto) 70 % (31-73) Lymphocytes (%) (Auto) 20 % (24-48) Monocytes (%) (Auto) 8 % (0-9) Eosinophils (%) (Auto) 1 % (0-3) Basophils (%) (Auto) 1 % (0-3) Neutrophils # (Auto) 7.1 x10^3uL (1.8-7.7) Lymphocytes # (Auto) 2.0 x10^3/uL (1.0-4.8) Monocytes # (Auto) 0.8 x10^3/uL (0.0-1.1) Eosinophils # (Auto) 0.1 x10^3/uL (0.0-0.7) Basophils # (Auto) 0.1 x10^3/uL (0.0-0.2) Prothrombin Time 12.3 SEC (11.7-14.0) Prothromb Time International Ratio 1.0 (0.8-1.1) Activated Partial Thromboplast Time 30 SEC (24-38) Sodium Level 137 mmol/L (136-145) Potassium Level 4.5 mmol/L (3.5-5.1) Chloride Level 102 mmol/L (98-107) Carbon Dioxide Level 26 mmol/L (21-32) Anion Gap 9 (6-14) Blood Urea Nitrogen 20 mg/dL (7-20) Creatinine 0.6 mg/dL (0.6-1.0) Estimated GFR (Cockcroft-Gault) 104.2 BUN/Creatinine Ratio 33 (6-20) Glucose Level 91 mg/dL (70-99) Calcium Level 8.2 mg/dL (8.5-10.1) Magnesium Level 1.7 mg/dL (1.8-2.4) Total Bilirubin 0.2 mg/dL (0.2-1.0) Aspartate Amino Transf (AST/SGOT) 13 U/L (15-37) Alanine Aminotransferase (ALT/SGPT) 13 U/L (14-59) Alkaline Phosphatase 110 U/L (46-116) Creatine Kinase 13 U/L (26-192) Total Protein 7.4 g/dL (6.4-8.2) Albumin 2.8 g/dL (3.4-5.0) Albumin/Globulin Ratio 0.6 (1.0-1.7) Lipase 76 U/L (73-393) Thyroid Stimulating Hormone (TSH) 2.353 uIU/mL (0.358-3.74) Laboratory Tests Test 01/21/17 19:42 White Blood Count 10.1 x10^3/uL (4.0-11.0) Red Blood Count 3.17 x10^6/uL (3.50-5.40) Hemoglobin 7.8 g/dL (12.0-15.5) Hematocrit 24.8 % (36.0-47.0) Mean Corpuscular Volume 78 fL (79-100) Mean Corpuscular Hemoglobin 25 pg (25-35) Mean Corpuscular Hemoglobin Concent 32 g/dL (31-37) Red Cell Distribution Width 18.6 % (11.5-14.5) Platelet Count 184 x10^3/uL (140-400) Neutrophils (%) (Auto) 70 % (31-73) Lymphocytes (%) (Auto) 20 % (24-48) Monocytes (%) (Auto) 8 % (0-9) Eosinophils (%) (Auto) 1 % (0-3) Basophils (%) (Auto) 1 % (0-3) Neutrophils # (Auto) 7.1 x10^3uL (1.8-7.7) Lymphocytes # (Auto) 2.0 x10^3/uL (1.0-4.8) Monocytes # (Auto) 0.8 x10^3/uL (0.0-1.1) Eosinophils # (Auto) 0.1 x10^3/uL (0.0-0.7) Basophils # (Auto) 0.1 x10^3/uL (0.0-0.2) Prothrombin Time 12.3 SEC (11.7-14.0) Prothromb Time International Ratio 1.0 (0.8-1.1) Activated Partial Thromboplast Time 30 SEC (24-38) Sodium Level 137 mmol/L (136-145) Potassium Level 4.5 mmol/L (3.5-5.1) Chloride Level 102 mmol/L (98-107) Carbon Dioxide Level 26 mmol/L (21-32) Anion Gap 9 (6-14) Blood Urea Nitrogen 20 mg/dL (7-20) Creatinine 0.6 mg/dL (0.6-1.0) Estimated GFR (Cockcroft-Gault) 104.2 BUN/Creatinine Ratio 33 (6-20) Glucose Level 91 mg/dL (70-99) Calcium Level 8.2 mg/dL (8.5-10.1) Magnesium Level 1.7 mg/dL (1.8-2.4) Total Bilirubin 0.2 mg/dL (0.2-1.0) Aspartate Amino Transf (AST/SGOT) 13 U/L (15-37) Alanine Aminotransferase (ALT/SGPT) 13 U/L (14-59) Alkaline Phosphatase 110 U/L (46-116) Creatine Kinase 13 U/L (26-192) Total Protein 7.4 g/dL (6.4-8.2) Albumin 2.8 g/dL (3.4-5.0) Albumin/Globulin Ratio 0.6 (1.0-1.7) Lipase 76 U/L (73-393) Thyroid Stimulating Hormone (TSH) 2.353 uIU/mL (0.358-3.74) Medications Current Medications Alteplase, Recombinant (Cathflo) 2 mg 1X ONCE INT CAT Last administered on t 19:30; Start 01/21/17 at 19:30; Stop 01/21/17 at 19:31; Status DC Ondansetron HCl (Zofran) 4 mg PRN Q8HRS PRN IV NAUSEA/VOMITING; Start 01/21/17 at 21:00; Stop 01/21/17 at 21:56; Status DC Non-Formulary Medication 2 puff PRN QID PRN IH SHORTNESS OF BREATH; Start 01/21 at 22:00; Status UNV Non-Formulary Medication 1 patch WEEKLY TP ; Start 01/28/17 at 09:00; Status UNV Non-Formulary Medication 1 puff DAILY IH ; Start 01/22/17 at 09:00; Status UNV Acetaminophen (Tylenol) 650 mg PRN Q6HRS PRN PO FEVER; Start 01/21/17 at 22:00 Ondansetron HCl (Zofran) 4 mg PRN Q6HRS PRN IV NAUSEA/VOMITING; Start 01/21/17 at 22:00 Morphine Sulfate 2 mg PRN Q2HR PRN IV PAIN; Start 01/21/17 at 22:00 Tramadol HCl (Ultram) 50 mg PRN Q6HRS PRN PO PAIN; Start 01/21/17 at 22:00 Hydralazine HCl (Apresoline) 10 mg PRN Q4HRS PRN IVP ELEVATED BP, SEE COMMENTS ; Start 01/21/17 at 22:00 Docusate Sodium (Colace) 100 mg PRN DAILY PRN PO CONSTIPATION; Start 01/21/17 at 22:00 Magnesium Sulfate/ Dextrose 50 ml @ 25 mls/hr 1X ONCE IV ; Start 01/21/17 at 22 :15; Stop 01/21/17 at 23:45; Status DC Sodium Chloride 1,000 ml @ 75 mls/hr 1X ONCE IV ; Start 01/21/17 at 22:15; Stop 01/22/17 at 11:34 Albuterol Sulfate (Ventolin Neb Soln) 2.5 mg PRN QID PRN NEB SHORTNESS OF BREATH; Start 01/21/17 at 22:00 Albuterol Sulfate (Ventolin Neb Soln) 2.5 mg RTQID NEB Last administered on 06:53; Start 01/22/17 at 08:00 Budesonide (Pulmicort) 0.5 mg RTBID NEB Last administered on 01/22/17 06:53; Start 01/22/17 at 08:00 Levothyroxine Sodium (Synthroid) 100 mcg DAILY06 PO ; Start 01/22/17 at 06:00 Midodrine (Proamatine) 5 mg TIDAFTMEAL PO Last administered on 01/22/17 08:36 ; Start 01/22/17 at 09:00 Ondansetron HCl (Zofran Odt) 4 mg PRN QID PRN PO NAUSEA; Start 01/21/17 at 23: 30 Primidone (Mysoline) 250 mg TID PO ; Start 01/22/17 at 09:00; Stop 01/22/17 at 09:00; Status DC Sucralfate (Carafate) 1 gm TIDAC PO ; Start 01/22/17 at 07:30 Sumatriptan Succinate (Imitrex) 100 mg PRN DAILY PRN PO MIGRAINE HEADACHE; Start 01/21/17 at 23:30 Atorvastatin Calcium (Lipitor) 10 mg QHS PO ; Start 01/22/17 at 21:00 Famotidine (Pepcid) 20 mg BID PO ; Start 01/22/17 at 09:00 Non-Formulary Medication 1 tab DAILY PO ; Start 01/22/17 at 09:00; Status UNV Magnesium Oxide (Magnesium Oxide) 400 mg 1X ONCE PO Last administered on 00:15; Start 01/21/17 at 23:55; Stop 01/21/17 at 23:56; Status DC Magnesium Oxide (Magnesium Oxide) 400 mg 1X ONCE PO Last administered on 08:32; Start 01/22/17 at 08:00; Stop 01/22/17 at 08:01; Status DC Oxycodone HCl (Roxicodone) 20 mg 1X ONCE PO Last administered on 01/22/17 00: 15; Start 01/22/17 at 00:15; Stop 01/22/17 at 00:16; Status DC Midodrine (Proamatine) 5 mg 1X ONCE PO Last administered on 01/22/17 00:16; Start 01/22/17 at 00:15; Stop 01/22/17 at 00:16; Status DC Baclofen (Lioresal) 10 mg 1X ONCE PO Last administered on 01/22/17 00:15; Start 01/22/17 at 00:15; Stop 01/22/17 at 00:16; Status DC Primidone (Mysoline) 250 mg 1X ONCE PO Last administered on 01/22/17 00:15; Start 01/22/17 at 00:15; Stop 01/22/17 at 00:16; Status DC Pantoprazole Sodium (Protonix) 40 mg 1X ONCE PO Last administered on 00:17; Start 01/22/17 at 00:15; Stop 01/22/17 at 00:16; Status DC Multi-Ingredient Ointment (Analgesic [place]) 1 fatou PRN QID PRN TP MUSCLE PAIN; Start 01/22/17 at 05:00 Oxycodone HCl (Roxicodone) 20 mg PRN Q8HRS PRN PO PAIN Last administered on 08:13; Start 01/22/17 at 06:00 Primidone (Mysoline) 500 mg BID PO Last administered on 01/22/17 08:32; Start 01/22/17 at 09:00 Baclofen (Lioresal) 10 mg TID PRN PRN PO MUSCLE SPASMS Last administered on 08:13; Start 01/22/17 at 06:00 Midodrine (Proamatine) 5 mg TID PRN PRN PO BLOOD PRESSURE; Start 01/22/17 at 06 :00 Heparin Sodium (Porcine) (Hep Lock Adult) 500 unit STK-MED ONCE IV ; Start 01/22 at 10:16; Stop 01/22/17 at 10:17; Status DC Lidocaine/ Epinephrine (Xylocaine 1%-Epi 1:100,000) 20 ml STK-MED ONCE .ROUTE ; Start 01/22/17 at 10:16; Stop 01/22/17 at 10:17; Status DC Heparin Sodium/ Sodium Chloride 0 ml @ As Directed STK-MED ONCE .ROUTE ; Start 01/22/17 at 10:16; Stop 01/22/17 at 10:17; Status DC Active Scripts Active Reported Advair 100-50 Diskus (Fluticasone/Salmeterol) 1 Each Disk.w.dev 1 Puff IH BID Midodrine Hcl 5 Mg Tablet 5 Mg PO PRN TID PRN Restora Capsule (Om-3/Dha/Epa/Fish Oil/L. Casei) 1 Each Capsule 1 Each PO DAILY08 Trokendi Xr (Topiramate) 200 Mg Cap.er.24h 200 Mg PO DAILY08 Baclofen 10 Mg Tablet 1 Tab PO TID PRN Protonix (Pantoprazole Sodium) 40 Mg Tablet.dr 1 Tab PO DAILY Carisoprodol 350 Mg Tablet 1 Tab PO TID Promethazine Hcl 25 Mg Tablet 1 Tab PO PRN Q6HRS Cyanocobalamin Injection (Cyanocobalamin (Vitamin B-12)) 1,000 Mcg/1 Ml Vial 1 Ml IM QMONTH Benadryl (Diphenhydramine Hcl) 25 Mg Capsule 25 Mg PO TID Sumatriptan Succinate 100 Mg Tablet 1 Tab PO Q6-8HRS PRN Pravastatin Sodium 40 Mg Tablet 1 Tab PO QHS Oxycodone Hcl 5 Mg Capsule 20 Cap PO TID PRN Midodrine Hcl 5 Mg Tablet 5 Mg PO TID Gemfibrozil 600 Mg Tablet 600 Mg PO BID Ascorbic Acid 500 Mg Tablet 500 Mg PO DAILY Acetaminophen Ext.release (Acetaminophen) 650 Mg Tablet.er 650 Mg PO PRN Q8HRS PRN Breo Ellipta 100-25 Mcg Inh (Fluticasone/Vilanterol) 1 Each Aer.pow.ba 1 Puff IH DAILY Proair Hfa Inhaler (Albuterol Sulfate) 8.5 Gm Hfa.aer.ad 2 Puff IH PRN QID PRN Butrans (Buprenorphine) 1 Each Patch.tdwk 1 Patch TP WEEKLY Ranitidine Hcl 150 Mg Tablet 1 Tab PO BID Sucralfate 1 Gm Tablet 1 Tab PO TIDAC Primidone 250 Mg Tablet 250 Mg PO TID Viibryd (Vilazodone Hydrochloride) 40 Mg Tablet 1 Tab PO DAILY Ondansetron Odt (Ondansetron) 4 Mg Tab.rapdis 4 Mg PO QID PRN Levothyroxine Sodium 100 Mcg Tablet 1 Tab PO DAILY Vitals/I & O Vital Sign - Last 24 Hours 01/21/17 01/21/17 01/21/17 01/21/17 19:00 19:30 20:00 20:30 Temp 98.3 98.3 Pulse 87 84 82 78 Resp 18 B/P (MAP) 110/65 (80) 100/71 (81) 97/53 (68) 104/57 (73) Pulse Ox 97 95 95 98 O2 Delivery Room Air Room Air Room Air Room Air 01/21/17 01/21/17 01/21/17 01/21/17 21:00 21:30 22:00 22:30 Pulse 82 78 74 76 B/P (MAP) 102/56 (71) 91/59 (70) 93/55 (68) 93/51 (65) Pulse Ox 97 97 98 96 O2 Delivery Room Air Room Air Room Air Room Air 01/21/17 01/21/17 01/22/17 01/22/17 22:30 23:00 00:15 00:16 Temp 98.1 98.1 Pulse 74 74 Resp 20 18 B/P (MAP) 93/52 (66) 93/52 Pulse Ox 96 96 O2 Delivery Room Air Room Air 01/22/17 01/22/17 01/22/17 01/22/17 03:00 06:54 07:00 08:00 Temp 98.0 98.3 98.0 98.3 Pulse 75 83 Resp 20 19 B/P (MAP) 99/55 (70) 92/52 (65) Pulse Ox 95 95 95 O2 Delivery Room Air Room Air Room Air Room Air 01/22/17 01/22/17 08:13 08:36 Pulse 83 B/P (MAP) 92/52 O2 Delivery Room Air Intake and Output 01/21/17 01/21/17 01/22/17 15:00 23:00 07:00 Intake Total 0 ml Output Total 500 ml Balance -500 ml Plan Plan IR NOTE: Patient was referred to IR for port removal and replacement. She has a right subclavian port which per patient report will not aspirate or flush. She is on TPN. Upon inspection the access needle was eccentric to the port reservoir. The port was re-accessed and found to flush and aspirate normally. The Port was flushed with heparin per protocol. A sterile dressing was applied. SHABANA BUENROSTRO MD Jan 22, 2017 10:45
[2017-01-22 11:02] VITALS: BP 93/43
[2017-01-22 15:01] VITALS: BP 94/53
[2017-01-22] MEDS ORDERED: ATORVASTATIN CALCIUM 10 MG TABLET. PO SCH (21:00)
[2017-01-28] MEDS ORDERED: NON FORMULARY ITEM (Buprenorphine (Butrans) 1 PATCH) TP SCH (09:00)
== END 2017-01-22 16:00 | disposition home or self-care (01) | DRG 315 ==
LOC: ER 18:51 → 6 SOUTH 20:39
PROVIDERS: ADMIT Internal Medicine; ATTEND Internal Medicine
DX: T82.898A Other specified complication of vascular prosthetic devices, implants and grafts, initial encounter (principal); E24.9 Cushing's syndrome, unspecified; K92.2 Gastrointestinal hemorrhage, unspecified; Z68.41 Body mass index [BMI] 40.0-44.9, adult; E44.0 Moderate protein-calorie malnutrition; E03.9 Hypothyroidism, unspecified; E11.9 Type 2 diabetes mellitus without complications; E66.01 Morbid (severe) obesity due to excess calories; F32.9 Major depressive disorder, single episode, unspecified; G43.909 Migraine, unspecified, not intractable, without status migrainosus; J44.9 Chronic obstructive pulmonary disease, unspecified; K21.9 Gastro-esophageal reflux disease without esophagitis; M79.7 Fibromyalgia; D64.9 Anemia, unspecified; F41.9 Anxiety disorder, unspecified; M19.90 Unspecified osteoarthritis, unspecified site; Z88.6 Allergy status to analgesic agent; Z90.49 Acquired absence of other specified parts of digestive tract; Z98.84 Bariatric surgery status; Z99.3 Dependence on wheelchair; Z88.8 Allergy status to other drugs, medicaments and biological substances
CPT/HCPCS: 36415; 80053; 82550; 83690; 83735; 84443; 85027; 85610; 85730; 86850; 86900; 86901; 94250; 94640; 94760; J2997; J7613; J7626; 99285-25

== ENCOUNTER 2017-01-29 08:39 | Outpatient (CLI) | payer MEDICARE, OTHER ==
[~2017-01-29] VITALS: Ht 157.5 cm; Wt 102.1 kg
[~2017-01-29 08:39] MED LIST changes: +BACL10TA PO; +CARI350T14 PO; +CYAN10002 IM; +DIPH25CA58 PO; +OM-31CAP7 PO; +PANT40TA3 PO; +PROM25TA10 PO
[2017-01-29 09:05] VITALS: BP 104/66
[2017-01-29 09:33] LABS: BASO # 0.1 x10^3/uL (0.0-0.2); BASO % 1 % (0-3); EOS % 2 % (0-3); HEMATOCRIT 29.7 % (36.0-47.0); HEMOGLOBIN 9.6 g/dL (12.0-15.5); LYMPH # 2.7 x10^3/uL (1.0-4.8); LYMPH % 41 % (24-48); MEAN CORPUSCULAR HEMOGLOBIN 26 pg (25-35); MEAN CORPUSCULAR HGB CONC 32 g/dL (31-37); MEAN CORPUSCULAR VOLUME 79 fL (79-100); MONO % 9 % (0-9); NEUT % 47 % (31-73); PLATELET COUNT 267 x10^3/uL (140-400); RED BLOOD COUNT 3.74 x10^6/uL (3.50-5.40); RED CELL DISTRIBUTION WIDTH 18.9 % (11.5-14.5); WHITE BLOOD COUNT 6.5 x10^3/uL (4.0-11.0)
[2017-01-29 09:42] LABS: INR 1.1 (0.8-1.1); PROTHROMBIN TIME PATIENT 13.2 SEC (11.7-14.0)
[2017-01-29] MEDS ORDERED: LIDOCAINE 1%/EPI 1:100,000 20 ML VIAL. INJ ONE (11:00)
[2017-01-29] MEDS ORDERED: MIDAZOLAM HCL/PF 2 MG/2 ML VIAL. IV ONE (11:00)
[2017-01-29] MEDS ORDERED: fentaNYL PF VIAL 100 MCG/2 ML VIAL IV ONE (11:00)
[2017-01-29] MEDS ORDERED: LIDOCAINE 1% / SOD BICARB 8.4% 20 ML VIAL. IJ ONE (11:35)
[2017-01-29 12:29] VITALS: BP 108/53
[2017-01-29 12:46] VITALS: BP 111/64
[2017-01-29 13:02] VITALS: BP 107/60
[2017-01-29 13:14] VITALS: BP 114/64
--- NOTE | 2017-01-29 13:54 | RAD ---
01/29/2017 Procedure: 1. Ultrasound and fluoroscopically guided placement of right internal jugular power port. 2. Removal of previously existing right subclavian port. Clinical Indication: Patient on long-term TPN was nonfunctional right subclavian port. Sedation: Conscious sedation was administered for 60 minutes. The patient was monitored by a qualified independent observer throughout the time of sedation. Please refer to the medical record for exact doses of medications utilized to achieve moderate sedation. Fluoroscopy time: 1.5 minutes Dose area product: 4 Gycm2 Consent: The procedure was explained in its entirety to the patient or the patients designated employer relations representative by a member of the treatment team, including a discussion of the risks, benefits and commonly accepted alternatives to the procedure, as well as the expected consequences of no therapy whatsoever. Discussion of the risks included, but was not limited to, those that are most frequent and those that are rare but possibly severe or life-threatening, as well as the possibility of unforeseen complications. Technique and Findings: All elements of maximal sterile barrier technique including the use of a cap, mask, sterile gown, sterile gloves, large sterile sheet, appropriate hand hygiene, and 2% chlorhexidine for cutaneous antisepsis (or acceptable alternative antiseptic per current guidelines) were followed for this procedure. Following informed consent, and a timeout procedure, the patient was prepped and draped in the usual sterile fashion. Ultrasound interrogation of the right neck revealed patency and compressibility of the right internal jugular vein. A 21-gauge micropuncture was then used to gain access to this vein under ultrasound guidance. A hard copy ultrasound image was recorded. The needle was exchanged over a wire for a sheath. A 1 inch incision was made several centimeters inferior to the sternotomy site. A catheter was tunneled from this site dermatotomy site in the neck. Catheter was advanced through peel-away sheath such that its tip was in the proximal right atrium with the patient supine. The catheter was trimmed to length and connected to the port reservoir. The port was found to flush and aspirate normally. The wound was closed in layers using 4-0 Vicryl suture. Sterile dressings were applied. 1% lidocaine without epinephrine was administered overlying the pre-existing port catheter in the more lateral right chest. A small incision was made overlying the pre-existing port reservoir. Using sharp and blunt dissection the reservoir and catheter were freed and removed intact. The wound was closed in layers using 2-0 Vicryl and 4-0 Vicryl suture. Dermabond was applied to the overlying skin. No immediate complications were identified. Impression: 1. Successful ultrasound and fluoroscopically guided placement of a right internal jugular PowerPort 2. Successful removal of right subclavian port
== END 2017-01-29 13:46 | disposition home or self-care (01) ==
LOC: INTRAD 08:39
PROVIDERS: ATTEND General Practice
DX: T82.598A Other mechanical complication of other cardiac and vascular devices and implants, initial encounter (principal); Y83.8 Other surgical procedures as the cause of abnormal reaction of the patient, or of later complication, without mention of misadventure at the time of the procedure; J44.9 Chronic obstructive pulmonary disease, unspecified; J45.909 Unspecified asthma, uncomplicated; E66.9 Obesity, unspecified; Z68.43 Body mass index [BMI] 50.0-59.9, adult; E11.9 Type 2 diabetes mellitus without complications; E03.9 Hypothyroidism, unspecified; F41.9 Anxiety disorder, unspecified; F32.9 Major depressive disorder, single episode, unspecified; Z86.69 Personal history of other diseases of the nervous system and sense organs; Z90.49 Acquired absence of other specified parts of digestive tract; Z87.440 Personal history of urinary (tract) infections; Z72.89 Other problems related to lifestyle; Z79.82 Long term (current) use of aspirin; Z88.6 Allergy status to analgesic agent; Z88.8 Allergy status to other drugs, medicaments and biological substances
CPT/HCPCS: 36415; 36561; 36590; 76937; 77001; 85027; 85610; C1751; C1887; C1892; J0690; J1644; J2250; J3010; J3490; 99152; 99153

== ENCOUNTER 2017-11-10 08:02 | Outpatient (CLI) | payer OTHER ==
[2017-11-10 08:33] LABS: POC GLUCOSE 88 mg/dL (70-99)
[2017-11-10 08:46] LABS: ADD MAN DIFF? NO
[2017-11-10 08:58] LABS: BASO # 0.1 x10^3/uL (0.0-0.2); BASO % 1 % (0-3); EOS # 0.1 x10^3/uL (0.0-0.7); EOS % 1 % (0-3); HEMATOCRIT 43.5 % (36.0-47.0); HEMOGLOBIN 15.2 g/dL (12.0-15.5); LYMPH # 3.8 x10^3/uL (1.0-4.8); LYMPH % 38 % (24-48); MEAN CORPUSCULAR HEMOGLOBIN 35 pg (25-35); MEAN CORPUSCULAR HGB CONC 35 g/dL (31-37); MEAN CORPUSCULAR VOLUME 99 fL (79-100); MONO % 10 % (0-9); NEUT # 4.9 x10^3uL (1.8-7.7); NEUT % 50 % (31-73); PLATELET COUNT 223 x10^3/uL (140-400); RED CELL DISTRIBUTION WIDTH 12.7 % (11.5-14.5); WHITE BLOOD COUNT 9.9 x10^3/uL (4.0-11.0)
[2017-11-10 09:01] LABS: PROTHROMBIN TIME PATIENT 12.2 SEC (11.7-14.0)
[2017-11-10] MEDS ORDERED: LIDOCAINE 2%/EPI 1:100,000 20 ML VIAL. (09:06)
[2017-11-10] MEDS ORDERED: ceFAZolin 1GM IVPB FOR OMNI 100 ML IV (09:31)
[2017-11-10] MEDS: LIDOCAINE 2%/EPI 1:100,000 20 ML VIAL. IJ (10:05)
[2017-11-10] MEDS: fentaNYL PF VIAL 100 MCG/2 ML VIAL IV (10:10)
[2017-11-10] MEDS: MIDAZOLAM HCL/PF 2 MG/2 ML VIAL. IV (10:10)
[2017-11-10] MEDS ORDERED: fentaNYL PF VIAL 100 MCG/2 ML VIAL (10:21)
[2017-11-10] MEDS ORDERED: MIDAZOLAM HCL/PF 2 MG/2 ML VIAL. (10:21)
== END 2017-11-10 11:39 | disposition home or self-care (01) ==
LOC: INTRAD 08:02
DX: T82.598A Other mechanical complication of other cardiac and vascular devices and implants, initial encounter (principal); K21.9 Gastro-esophageal reflux disease without esophagitis; J44.9 Chronic obstructive pulmonary disease, unspecified; E03.9 Hypothyroidism, unspecified; F32.9 Major depressive disorder, single episode, unspecified; F41.9 Anxiety disorder, unspecified; E66.9 Obesity, unspecified; Z68.43 Body mass index [BMI] 50.0-59.9, adult; M79.7 Fibromyalgia; D64.9 Anemia, unspecified; Z88.5 Allergy status to narcotic agent; Z88.8 Allergy status to other drugs, medicaments and biological substances; I95.9 Hypotension, unspecified; F17.200 Nicotine dependence, unspecified, uncomplicated; Z98.890 Other specified postprocedural states; Z98.84 Bariatric surgery status; Z90.49 Acquired absence of other specified parts of digestive tract; Z87.440 Personal history of urinary (tract) infections; Y83.8 Other surgical procedures as the cause of abnormal reaction of the patient, or of later complication, without mention of misadventure at the time of the procedure; Y92.89 Other specified places as the place of occurrence of the external cause
CPT/HCPCS: 36415; 36561; 36582; 36590; 76937; 77001; 82962; 85025; 85610; 99152; 99153; C1751; C1788; C1892; J0690; J2250; J3010; J3490

== ENCOUNTER 2018-12-23 08:26 | Outpatient (CLI) | payer OTHER ==
[~2018-12-23] VITALS: Ht 160 cm; Wt 108.0 kg
[2018-12-23] VITALS (7 sets, daily range): BP systolic 88–121; BP diastolic 44–77
[~2018-12-23 08:26] MED LIST changes: +ALBU2.5V8 IH; -CALC500T PO; +CALC500T31 PO; -GABA-586 PO; +GABA300C18 PO; -GABA600T2 PO; +GABA600T7 PO; -GEMF600T3 PO; +GEMF600T8 PO; -OXYC-328 PO; -OXYC10TA45 PO; +OXYC10TA46 PO; +OXYC1TAB22 PO; -OXYC5TAB; +OXYC5TAB4; -PANT40TA3 PO; +PANT40TA77 PO; -PROAIR HFA8.5 GM IH; -TOPI200C PO; +TOPI200C6 PO; +TOPI25CA12 PO; -TOPI25CA5 PO
[2018-12-23] MEDS ORDERED: LIDOCAINE 1%/EPI 1:100,000 20 ML VIAL. ONE (09:26)
[2018-12-23 09:29] LABS: BASO % 1 % (0-3); EOS # 0.1 x10^3/uL (0.0-0.7); EOS % 1 % (0-3); HEMATOCRIT 41.9 % (36.0-47.0); HEMOGLOBIN 14.3 g/dL (12.0-15.5); LYMPH # 1.9 x10^3/uL (1.0-4.8); LYMPH % 25 % (24-48); MEAN CORPUSCULAR HEMOGLOBIN 33 pg (25-35); MEAN CORPUSCULAR HGB CONC 34 g/dL (31-37); MEAN CORPUSCULAR VOLUME 96 fL (79-100); MONO # 0.7 x10^3/uL (0.0-1.1); MONO % 9 % (0-9); NEUT # 4.9 x10^3uL (1.8-7.7); NEUT % 65 % (31-73); PLATELET COUNT 224 x10^3/uL (140-400); RED BLOOD COUNT 4.37 x10^6/uL (3.50-5.40); RED CELL DISTRIBUTION WIDTH 15.4 % (11.5-14.5); WHITE BLOOD COUNT 7.6 x10^3/uL (4.0-11.0)
[2018-12-23] MEDS ORDERED: SIME125C76 PO (09:39)
[2018-12-23] MEDS ORDERED: SUVO10TA PO (09:39)
[2018-12-23] MEDS ORDERED: SUCR1TAB PO (09:39)
[2018-12-23] MEDS ORDERED: ICOS1CAP PO (09:39)
[2018-12-23] MEDS ORDERED: ACET500T68 PO (09:39)
[2018-12-23] MEDS ORDERED: OLOP2.5D5 OP (09:39)
[2018-12-23] MEDS ORDERED: NYST15PO9 TP (09:39)
[2018-12-23] MEDS ORDERED: SULF1TAB24 PO (09:39)
[2018-12-23] MEDS ORDERED: GUAI400T63 PO (09:39)
[2018-12-23] MEDS ORDERED: PROP10TA PO (09:39)
[2018-12-23 09:40] LABS: PROTHROMBIN TIME PATIENT 13.2 SEC (11.7-14.0)
[2018-12-23] MEDS ORDERED: fentaNYL PF VIAL 100 MCG/2 ML VIAL ONE (10:17)
[2018-12-23] MEDS ORDERED: MIDAZOLAM HCL/PF 2 MG/2 ML VIAL. ONE (10:17)
[2018-12-23] MEDS ORDERED: ceFAZolin 1GM IVPB FOR OMNI 100 ML IV ONE (10:19)
[2018-12-23] MEDS ORDERED: MIDAZOLAM HCL/PF 2 MG/2 ML VIAL. IV ONE (10:30)
[2018-12-23] MEDS ORDERED: LIDOCAINE 1%/EPI 1:100,000 20 ML VIAL. IJ ONE (10:30)
[2018-12-23] MEDS ORDERED: fentaNYL PF VIAL 100 MCG/2 ML VIAL IV ONE (10:30)
--- NOTE | 2018-12-23 13:10 | NUR ---
Patient arrived to outpatient for matt cath removal and replacement. Patient yelling and cursing demanding the process to happen the way she wants and refusing labs to be drawn and IV to be started. Patients son, Italo, at bedside advising patient to stop yelling and cursing. Dr Moise spoke with patient and patient has agreed to proceed with labs, IV and procedure. During recovery patient yelling and cursing because she does not want to stay and kept taking off heart monitor and 02 say probe. Educated patient on reason for observation and the time in recovery, patient stay for length of time but proceeded to yell and curse at staff. Patient left [facility] in wheelchair with son at 1310, refused to sign discharge note, son did take discharge paperwork. [facility] nurse did escort patient and son to vehicle. Vitals stable, patient ate yogurt and drank fluids without difficulty. Patient left with matt cath accessed, patient stated she needs it for her infusion today with home health and Dr Moise is aware and agrees.
--- NOTE | 2018-12-23 13:17 | RAD ---
12/23/2018 1. Removal of right internal jugular PowerPort 2. Placement of a new right internal jugular PowerPort Indication: Skin erosion overlying the pre-existing right power port reservoir Discussion: The procedure was explained in its entirety to the patient or the patients designated fundraising sale representative by a member of the treatment team, including a discussion of the risks, benefits and commonly accepted alternatives to the procedure, as well as the expected consequences of no therapy whatsoever. Discussion of the risks included, but was not limited to, those that are most frequent and those that are rare but possibly severe or life-threatening, as well as the possibility of unforeseen complications. The risk of recurrent infection was discussed with the patient. Despite a detailed explanation of the risks, the patient insists on port replacement on the same day and removal of other vascular access options. A timeout procedure was performed. The right neck and chest were prepped and draped using sterile barrier technique. 1% lidocaine was administered over the right neck and chest for local anesthesia. A small incision was made overlying the pre-existing port reservoir. The eroded skin was resected. The wound was irrigated without overt evidence of infection. The uterus closed in layers using Vicryl Ultrasound interrogation of the right neck revealed patency and compressibility of the right internal jugular vein. A 21-gauge micropuncture was then used to gain access to this vein under ultrasound guidance. A hard copy ultrasound image was recorded. The needle was exchanged over a wire for a sheath. A 1 inch incision was made several centimeters inferior to the venotomy site. A catheter was tunneled from this site dermatotomy site in the neck. Catheter was advanced through peel-away sheath such that its tip was in the proximal right atrium with the patient supine. The catheter was trimmed to length and connected to the port reservoir. The port was found to flush and aspirate normally. The wound was closed in layers using 4-0 Vicryl suture. Sterile dressings were applied. Fluoroscopy time: 0.9 minutes Dose area product: 33 Gycm2 The procedures performed under conscious sedation including continuous cardiopulmonary monitoring via dedicated sedation nurse. [id number] sedation time: 50 minutes Impression: 1. Removal of pre-existing right internal jugular PowerPort. 2. Successful ultrasound and fluoroscopically guided placement of a right internal jugular PowerPort
== END 2018-12-23 13:10 | disposition home or self-care (01) ==
LOC: INTRAD 08:26
PROVIDERS: ATTEND General Practice
DX: T82.598A Other mechanical complication of other cardiac and vascular devices and implants, initial encounter (principal); Z79.899 Other long term (current) drug therapy; Z79.01 Long term (current) use of anticoagulants; Y83.8 Other surgical procedures as the cause of abnormal reaction of the patient, or of later complication, without mention of misadventure at the time of the procedure; Y92.89 Other specified places as the place of occurrence of the external cause
CPT/HCPCS: 36415; 36561; 36590; 76937; 77001; 85025; 85610; 99152; 99153; C1788; C1892; J0690; J2250; J3010; J3490; C1751

== ENCOUNTER 2019-07-06 20:35 | Inpatient (IN) | payer OTHER ==
[~2019-07-06] VITALS: Ht 160 cm; Wt 93.9 kg
[~2019-07-06 20:35] MED LIST changes: -ACET-1574 PO; +ACET-1871 PO; +ACET500T68 PO; +DIPH25CA23 PO; -DIPH25CA3 PO; +FLUO40CA9 PO; +GUAI400T63 PO; +ICOS1CAP PO; -MIDO5TAB; -MIDO5TAB PO; +MIDO5TAB4; +MIDO5TAB4 PO; +NYST15PO9 TP; +OLOP2.5D5 OP; +PROP10TA PO; +SIME125C76 PO; +SULF1TAB24 PO
[2019-07-06 20:45] VITALS: BP 106/67
[2019-07-06 21:00] VITALS: BP 96/60
[2019-07-06 21:15] VITALS: BP 119/69
[2019-07-06 21:30] VITALS: BP 105/67
[2019-07-06 22:00] VITALS: BP 114/61
[2019-07-06] MEDS ORDERED: PIP/TAZO PER PHARMACY MC PRN (22:15)
[2019-07-06] MEDS ORDERED: VANCOMYCIN 2 GM in IV NORMAL SALINE 500ML BAG 500 ML IV ONE (22:30)
[2019-07-06] MEDS ORDERED: VANCOMYCIN PER PHARMACY MC PRN (22:30)
[2019-07-06] MEDS: IV NORMAL SALINE 1000ML BAG 1,000 ML IV SCH (22:37)
[2019-07-06] MEDS: MORPHINE SULFATE 2 MG/ML VIAL. IV PRN (22:38)
--- NOTE | 2019-07-06 22:52 | NUR ---
Pharmacy Vancomycin Dosing Note S:Consulted to monitor and dose vancomycin started 07/06/19. O:BERNARDO GRUBER is a 58 year old F with Pneumonia . Height: 5 feet, 3 inches Weight: 93.950288 kg [place] Body Weight: 52.40 Adjusted Body Weight: 69.00 Dosing Weight: Actual Other Antibiotics: ZOSYN 3.375GM IV Q6H LABS: Last BUN: 18 Last Creatinine: 0.7 Creatinine Clearance: 85.5 mL/min Last WBC: 17.7 Last Procalcitonin: Tmax (past 24 hours): Microbiology: I/O: Drug Levels: Last level: on at Last dose given at Vancomycin Dosing: Loading Dose: 2000 mg x1 07/06/192235 Dosing Weight: Actual Target Trough: 15-20 A: Based on: Actual Wt and CrCl P: 1. 07/07/19 1030 Vancomycin 1500 mg IV q12h 2. Follow up Trough level on 07/08/19 at 1000 3. Pharmacy will continue to monitor, follow and adjust therapy as needed. LYNDA DAVIS RPH, [id number]/06/[id number] Signed: 07/06/19 at 2252 by LYNDA DAVIS RPH PHA
[2019-07-06 23:00] VITALS: BP 99/44
[2019-07-06] MEDS ORDERED: TOPI100T8 PO (23:24)
[2019-07-06] MEDS ORDERED: BUPR1PAT7 TD (23:24)
[2019-07-06] MEDS ORDERED: ASPI1TAB31 PO (23:24)
[2019-07-06] MEDS ORDERED: BACL20TA PO (23:24)
[2019-07-06] MEDS ORDERED: FLUT16SP NS (23:24)
[2019-07-06] MEDS ORDERED: OM-31CAP7 PO (23:24)
[2019-07-06] MEDS ORDERED: xifaxan (23:24)
[2019-07-06] MEDS ORDERED: SUMATRIPTAN SQ (23:24)
[2019-07-06] MEDS ORDERED: OXYC20TA PO (23:24)
[2019-07-06] MEDS ORDERED: FLUO10CA13 PO (23:24)
[2019-07-06] MEDS ORDERED: CYAN10002 IM (23:24)
--- NOTE | 2019-07-06 23:29 | NUR ---
Patient arrived via EMS at 2039. Patient alert and oriented, able to answer admission questions when asked. Patient slightly short of air when speaking and moving, pain tolerable after receiving morphine from [facility] ED. Patient's son notified of admission and room number by patient. Patient sepsis screen positive, repeat lactic acid completed stat upon admission. Two sets of blood cultures ordered per protocol, one set drawn out of portacath, the other attempted as lab stick but was unsuccessful, so second set drawn out of portacath as well. Patient stated portacath was accessed yesterday, 07/05/19, at home and adamantly did not want it changed. Dr. Lopez notified of admission and positive sepsis screen, orders received. Per Dr. Lopez, routine consult placed to infectious disease and home medications will be addressed tomorrow, 07/07/19. Patient now resting comfortably in bed, VSS. Will continue to monitor.
[2019-07-07] VITALS (16 sets, daily range): BP systolic 90–144; BP diastolic 50–81
[2019-07-07] MEDS: PIPERACILLIN/TAZOBACTAM 3.375 GM in IV NORMAL SALINE 50ML 50 ML IV SCH ×5 (00:44→23:53)
[2019-07-07] MEDS: ONDANSETRON PF 4 MG/2 ML VIAL. IVP PRN ×2 (03:49→11:47)
[2019-07-07 06:07] LABS: BASO % 0 % (0-3); EOS % 0 % (0-3); HEMOGLOBIN 10.6 g/dL (12.0-15.5); LYMPH # 0.9 x10^3/uL (1.0-4.8); LYMPH % 9 % (24-48); MEAN CORPUSCULAR HEMOGLOBIN 31 pg (25-35); MEAN CORPUSCULAR HGB CONC 33 g/dL (31-37); MEAN CORPUSCULAR VOLUME 95 fL (79-100); MONO # 0.8 x10^3/uL (0.0-1.1); MONO % 8 % (0-9); NEUT # 8.6 x10^3/uL (1.8-7.7); NEUT % 83 % (31-73); PLATELET COUNT 216 x10^3/uL (140-400); RED BLOOD COUNT 3.38 x10^6/uL (3.50-5.40); RED CELL DISTRIBUTION WIDTH 14.5 % (11.5-14.5); WHITE BLOOD COUNT 10.4 x10^3/uL (4.0-11.0)
[2019-07-07 06:12] LABS: ALBUMIN/GLOBULIN RATIO 0.5 (1.0-1.7); CALCIUM 7.9 mg/dL (8.5-10.1); CREATININE 0.5 mg/dL (0.6-1.0); GFR 127.6; POTASSIUM 3.9 mmol/L (3.5-5.1); TOTAL BILIRUBIN 0.3 mg/dL (0.2-1.0); TOTAL PROTEIN 5.7 g/dL (6.4-8.2)
[2019-07-07] MEDS: MORPHINE SULFATE 2 MG/ML VIAL. IV PRN ×3 (08:43→20:19)
--- NOTE | 2019-07-07 08:52 | PDOC ---
Infectious Disease Note Vital Signs: Vital Signs Vital Signs Date Time Temp Pulse Resp B/P (MAP) Pulse Ox O2 Delivery O2 Flow Rate FiO2 07/07/19 08:43 20 Venturi Mask 07/07/19 06:00 88 125/73 (90) 95 07/07/19 04:00 98.1 98.1 07/06/19 23:08 12.0 Medications: Inpatient Meds: Current Medications Medications (Trade) Dose Ordered Sig/Sheri Start Time Stop Time Status Last Admin Dose Admin Morphine Sulfate (Morphine Sulfate) 2 mg PRN Q4HRS PRN 07/06/19 22:15 07/07/19 08:43 2 MG Ondansetron HCl (Zofran) 4 mg PRN Q8HRS PRN 07/07/19 03:30 07/07/19 03:49 4 MG Piperacillin Sod/ Tazobactam Sod (Zosyn Per Pharmacy) 1 each PRN DAILY PRN 07/06/19 22:15 Piperacillin Sod/ Tazobactam Sod 3.375 gm/Sodium Chloride 50 ml @ 100 mls/hr Q6HRS 07/07/19 00:00 07/07/19 05:37 100 MLS/HR Sodium Chloride 1,000 ml @ 75 mls/hr [id number] 07/06/19 22:15 07/06/19 22:37 75 MLS/HR Vancomycin HCl (Vanco Per Pharmacy) 1 each PRN DAILY PRN 07/06/19 22:30 07/06/19 22:48 1 EACH Vancomycin HCl (Vancomycin Trough Level) 1 each 1X ONCE 07/08/19 10:00 07/08/19 10:01 Vancomycin HCl 1.5 gm/Sodium Chloride 500 ml @ 250 mls/hr Q12H 07/07/19 10:30 Vancomycin HCl 2 gm/Sodium Chloride 500 ml @ 250 mls/hr 1X ONCE 07/06/19 22:30 07/07/19 00:29 DC 07/06/19 22:36 250 MLS/HR Labs: Lab Laboratory Tests Test 07/06/19 21:30 07/07/19 05:40 Lactic Acid Level 1.1 mmol/L (0.4-2.0) White Blood Count 10.4 x10^3/uL (4.0-11.0) Red Blood Count 3.38 x10^6/uL (3.50-5.40) Hemoglobin 10.6 g/dL (12.0-15.5) Hematocrit 32.0 % (36.0-47.0) Mean Corpuscular Volume 95 fL (79-100) Mean Corpuscular Hemoglobin 31 pg (25-35) Mean Corpuscular Hemoglobin Concent 33 g/dL (31-37) Red Cell Distribution Width 14.5 % (11.5-14.5) Platelet Count 216 x10^3/uL (140-400) Neutrophils (%) (Auto) 83 % (31-73) Lymphocytes (%) (Auto) 9 % (24-48) Monocytes (%) (Auto) 8 % (0-9) Eosinophils (%) (Auto) 0 % (0-3) Basophils (%) (Auto) 0 % (0-3) Neutrophils # (Auto) 8.6 x10^3/uL (1.8-7.7) Lymphocytes # (Auto) 0.9 x10^3/uL (1.0-4.8) Monocytes # (Auto) 0.8 x10^3/uL (0.0-1.1) Eosinophils # (Auto) 0.0 x10^3/uL (0.0-0.7) Basophils # (Auto) 0.0 x10^3/uL (0.0-0.2) Sodium Level 139 mmol/L (136-145) Potassium Level 3.9 mmol/L (3.5-5.1) Chloride Level 108 mmol/L (98-107) Carbon Dioxide Level 24 mmol/L (21-32) Anion Gap 7 (6-14) Blood Urea Nitrogen 17 mg/dL (7-20) Creatinine 0.5 mg/dL (0.6-1.0) Estimated GFR (Cockcroft-Gault) 127.6 BUN/Creatinine Ratio 34 (6-20) Glucose Level 115 mg/dL (70-99) Calcium Level 7.9 mg/dL (8.5-10.1) Total Bilirubin 0.3 mg/dL (0.2-1.0) Aspartate Amino Transf (AST/SGOT) 14 U/L (15-37) Alanine Aminotransferase (ALT/SGPT) 9 U/L (14-59) Alkaline Phosphatase 110 U/L (46-116) Total Protein 5.7 g/dL (6.4-8.2) Albumin 2.0 g/dL (3.4-5.0) Albumin/Globulin Ratio 0.5 (1.0-1.7) Objective: Assessment: Pt seen and examined ID consult dictated Plan: Plan of Care Thank you dc iv vanc cont zosyn check c diff pcr GIOVANNA HINKLE MD Jul 07, 2019 08:52
[2019-07-07] MEDS ORDERED: ONDANSETRON ODT 4 MG TAB.RAPDIS. PO PRN (10:00)
[2019-07-07] MEDS ORDERED: ASA/APAP/CAFFEINE 250/250/65MG TABLET. PO PRN (10:00)
[2019-07-07] MEDS ORDERED: NON FORMULARY ITEM (Oxycodone Hcl 1 TAB) PO PRN (10:00)
[2019-07-07] MEDS ORDERED: SUMAtriptan SUCCINATE 100 MG TABLET PO PRN (10:00)
[2019-07-07] MEDS ORDERED: ALBUTEROL SULFATE 2.5 MG/3 ML NEBU. INH PRN (10:00)
[2019-07-07] MEDS ORDERED: METOPROLOL TARTRATE 5 MG/5 ML VIAL. IVP STA (10:21)
[2019-07-07] MEDS ORDERED: guaiFENesin ORAL 200 MG/10 ML LIQUID. PO PRN (10:30)
[2019-07-07] MEDS ORDERED: VANCOMYCIN 1.5 GM in IV NORMAL SALINE 500ML BAG 500 ML IV SCH (10:30)
[2019-07-07] MEDS ORDERED: SUMAtriptan SUCC 6 MG/0.5 ML VIAL. SQ PRN (10:30)
[2019-07-07] MEDS ORDERED: PROMETHAZINE 12.5 MG TABLET. PO PRN (10:45)
[2019-07-07] MEDS ORDERED: AMIODARONE 150 MG in IV DEXTROSE 5% 100ML 100 ML IV ONE (11:00)
--- NOTE | 2019-07-07 11:26 | HP ---
ADMIT DATE: HISTORY OF PRESENT ILLNESS: The patient is a 58-year-old female patient with multiple medical problems who presented to the Emergency Room of [facility] with a complaint of cough with body aches for the last several days. She also complained of nausea, vomiting, no blood in the emesis, no travel, no diarrhea. She also complained of shortness of breath. She was extensively investigated in the Emergency Room, was found to have leukocytosis with a white cell count 17,700. Her blood gases showed that she was hypoxic with a pO2 of only 43. She has elevated D-dimer at 0.92; however, her chemistry showed that she has lactic acidosis. Her toxic screen was positive for opiates. Urinalysis was essentially unremarkable and her influenza A and B were negative. Her chest x-ray showed that she has diffuse infiltrate. There is no consolidation, pleural effusion or pneumothorax. Heart is normal in size. There is a Port-A-Cath with a tip in the superior right atrium. Given her elevated D-dimer, she underwent CT angio of the chest, which showed that there is no pulmonary embolism. She does have mild prominent mediastinal lymph nodes unchanged calcified right hilar and subcarinal lymph nodes and calcified right lung pulmonary nodules, likely due to prior granulomatous disease. Right chest wall port. She has also diffuse bilateral ground glass opacities with interlobular septal thickening, most prominent within the upper lobe with mildly increased compared to prior. No pleural effusion or new consolidation. The upper abdomen showed postoperative changes of gastric bypass. She does have no pathological osseous lesions; however, she has 12-lead vertebral body hemangioma. The patient was transferred to [facility] given her acute hypoxic respiratory failure, bilateral pneumonitis. PAST MEDICAL HISTORY: Significant for: 1. Liver cirrhosis due to chronic alcoholism as well as complication of gastric bypass surgery. 2. Morbid obesity, status post gastric bypass surgery. 3. Anemia that is macrocytic although her B12 is normal. Her other hematinics are consistent with anemia of chronic disease. 4. She has traumatic brain injury. 5. Hypothyroidism. 6. Anxiety and depression. 7. Chronic pain syndrome. 8. Severe protein-calorie malnutrition, severe hypoalbuminemia. 9. Fibromyalgia. 10. Gastroesophageal reflux disease. 11. Hepatic encephalopathy. 12. Chronic obstructive pulmonary disease, bronchial asthma. 13. Migraine headache. 14. Long-term opiate analgesic dependence. PAST SURGICAL HISTORY: Significant for gastric bypass surgery. The patient lost about 250 pounds according to her. She has a Port-A-Cath placement. She also underwent uvulopalatopharyngoplasty, tonsillectomy, adenoidectomy, cholecystectomy, appendectomy, bilateral carpal tunnel release, rotator cuff surgery and hernia surgery. ALLERGIES: SHE IS ALLERGIC TO ALL NONSTEROIDAL ANTI-INFLAMMATORY MEDICATION, LINEZOLID, VIOXX AND AMBIEN. FAMILY HISTORY: Positive for breast cancer on both sides, heart problems in both sides, heart attack, congestive heart failure, and epilepsy. Her grandfather of oral cancer. Her father of lung cancer. SOCIAL HISTORY: The patient has been disabled for many years. Prior to that, she had multiple jobs up to the age of 40. 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 She was working as a [employer]. She actually completed her associate degree in [place], [place] on 11/2011. She smoked half a pack a day, used to smoke 3 packs per day. Denied any alcohol recently. She lives with her son. She is and her son is her caregiver. MEDICATIONS: She is normally on following medications: She is on diphenhydramine 25 mg p.o. t.i.d. as needed for itching, promethazine 25 mg tablet every 6 hours as needed for nausea and vomiting. She is on rifaximin 550 mg p.o. every other day, midodrine 5 mg 3 times a day, albuterol sulfate 2 puffs every 4-6 hours, baclofen 20 mg 4 times a day as needed, pravastatin sodium 40 mg at bedtime, icosapent ethyl for Vascepa 1 gram twice a day, propranolol 10 mg 3 times a day. She is also on topiramate 25 mg at bedtime for Trokendi does an extended form, Tylenol 650 mg every 6 hours, fluoxetine 40 mg daily, sumatriptan succinate 100 mg p.o. every 6-8 hours for migraine headache. She is on Advair Diskus 250/50 one puff twice a day, olopatadine 1 drop to both eyes daily, simethicone 125 mg p.o. every 4 hours as needed. She is on ondansetron 4 mg 4 times a day as needed, ranitidine 150 mg twice a day, sucralfate 1 gram 3 times a day before meals. She is also on levothyroxine sodium 100 mcg once a day, nystatin powder apply topically twice a day, and multivitamin 1 tablet once a day. She is also on Butrans 20 mcg topically every 5 days and oxycodone extended release 20 mg twice a day. REVIEW OF SYSTEMS: As per history of present illness. PHYSICAL EXAMINATION: GENERAL: On arrival to the Emergency Room, she was somewhat pale, but no jaundice or cyanosis. No lymphadenopathy, no thyromegaly. No jugular venous distention. No lower limb edema. VITAL SIGNS: Her heart rate was 115, blood pressure was 134/45, temperature actually went up to 100.4, respiratory rate was 32 and oxygen saturation was 95% on 12 liters. Initially, her oxygen saturation was only 84% on room air. HEAD, EYES, EARS, NOSE AND THROAT: Showed she is normocephalic, atraumatic. NECK: Supple. HEART: Showed normal first and second heart sounds with no gallop or murmur. CHEST: Shows central trachea, equal bilateral expansion, air entry, vesicular sounds with crepitation mostly posteriorly, very few scattered rhonchi. ABDOMEN: Distended, soft, nontender. No guarding or rigidity. No organomegaly. All hernial orifice intact. Bowel sounds normal. NEUROLOGIC: She was awake, alert, responding appropriately. All cranial nerves intact. EXTREMITIES: She moves extremities without difficulty. LABORATORY DATA: Her lab work on arrival to the Emergency Room showed a white cell count 17,700, hemoglobin 12.8, hematocrit 39.6, MCV 95, and platelet count of 293,000 with normal manual differential. Her chemistry showed a serum sodium 136, potassium 3.8, chloride 101, bicarbonate 22, anion gap of 13, BUN 18, creatinine 0.7, estimated GFR was 86 mL per minute. Her glucose 111. Lactic acid was 2.4, calcium was 8.7. Total bilirubin, AST and ALT are normal. Alkaline phosphatase slightly elevated. Beta natriuretic peptide was 303. Total protein was 6.5, albumin was 2.4. Her D-dimer was high at 0.92. Blood gases showed a pH of 7.40, pCO2 of 29, pO2 of 43, bicarbonate was 18 and oxygen saturation was 79%, FiO2 of 28%. Urinalysis showed the urine was yellow, clear with a pH of 6.5, specific gravity 1.025. The urine was negative for protein, glucose, large amount of ketones. The urine was negative for blood, nitrite and leukocyte esterase. There are only occasional rbc's, 1-4 wbc's and no bacteria. Her toxic screen was positive for opiates and her influenza A and B were negative. Her chest x-ray showed that there is diffuse interstitial infiltrate and CT angio of the chest showed no pulmonary emboli, but she has mildly increased extensive bilateral ground glass opacities interlobular septal thickening crazy paving pattern. Differential includes pneumonia and ARDS, although given the chronicity and acute interstitial pneumonia or pulmonary alveolar proteinosis a possible additional course of drug reaction opportunistic infection and/or other inflammatory process are possible. ASSESSMENT AND PLAN: The patient was transferred to [facility] with acute hypoxic respiratory failure, bilateral pneumonic infiltrate. We will obviously keep her n.p.o. Blood was sent for culture and sensitivity and we will consult the Infectious Disease, started on antibiotic as she probably covering aspiration pneumonia. We will restart her TPN. Meanwhile, we will continue with IV fluid, IV antiemetic and pain medication. LEE RODRIGUEZ MD DR: MARILEE/ramírez JOB#: [id number] / [id number]
--- NOTE | 2019-07-07 11:41 | CONS ---
DATE OF CONSULTATION: 07/07/2019 REFERRING PHYSICIAN: Dr. Lopez. REASON FOR CONSULTATION: Pneumonia. HISTORY OF PRESENT ILLNESS: A 58-year-old female with multiple medical problems with liver cirrhosis due to chronic alcoholism, gastric bypass surgery, morbid obesity, chronic anemia, traumatic brain injury, hypothyroidism, anxiety, depression, chronic pain syndrome, severe protein-calorie malnutrition, on TPN, fibromyalgia, GERD, history of asthma, COPD, migraine headache, assisted opioid dependence, presented to [place] [facility] on 07/06/2019 with complaints of cough and body ache, which has been going on for a couple of days prior to admission along with nausea and vomiting. The patient had fevers, subjective chills. No sick contact. Also, has chronic diarrhea. She had trouble breathing. White count was elevated at 17,000 with lactate of 7.9. She got 1 liter of IV fluid bolus and repeat lactate was 1.1. Chest x-ray showed diffuse interstitial infiltrate. Repeat white count was 10.47. Flu A and B screen was negative. UA was negative. The patient was admitted to ICU at [facility] for evaluation and treatment of pneumonia. She also received IV steroids at [facility]. Today, the patient states she has a headache from her underlying migraine, has cough which brings up clear sputum. No sores in the mouth. Does have shortness of breath and tightness. Has chronic nausea and vomiting, is on TPN through Port-A-Cath in the right chest wall. She was recently admitted at [facility] in May with complaints of nausea and vomiting with abnormal CT changes at [facility]. GI and General Surgery were consulted at that time. The patient then was discharged home. PAST MEDICAL HISTORY: Gastric bypass, possible anastomotic ulcer, history of colon resection, diverticular, history of gastric colonic fistula, pneumocystis coli, history of C. difficile, status post cholecystectomy, history of chronic hepatitis C, hepatic steatosis, liver cirrhosis, chronic alcoholism, anemia, microcytic. Traumatic brain injury, hypothyroidism, anxiety, depression, chronic pain, severe protein-calorie malnutrition, on TPN through Port-A-Cath right chest wall, fibromyalgia, GERD have a history of hepatic encephalopathy, history of bronchial asthma, history of COPD, migraine headache. History of long-term opiate dependence. PAST SURGICAL HISTORY: Gastric bypass surgery, Port-A-Cath placement, Port-A-Cath replacement due to infection twice before that, uvulopalatopharyngoplasty, tonsillectomy and adenoidectomy, cholecystectomy, appendectomy, bilateral carpal tunnel release, rotator cuff surgery, hernia surgery. ALLERGIES: NONSTEROIDALS, ASPIRIN, CELECOXIB, CODEINE, ROFECOXIB, AMBIEN. FAMILY HISTORY: As per HPI. SOCIAL HISTORY: Disabled son is healthcare provider. Positive for smoking, no ETOH, on disability. CURRENT MEDICATION: IV vancomycin. CURRENT MEDICATIONS: Zosyn. Other medications reviewed in medication list. PHYSICAL EXAMINATION: VITAL SIGNS: Temperature 98.1, pulse 88, respirations 18, blood pressure 125/73, oxygen saturation 95% on Ventimask. GENERAL: Well-developed, well-nourished, alert, oriented, nontoxic-appearing female, lying in bed comfortably, able to answer questions. HEENT: Normocephalic, atraumatic, anicteric. No thrush. Oral mucosa moist. NECK: Supple, no JVD. LUNGS: Clear bilaterally. No wheezing. HEART: S1, S2. Chest wall Port-A-Cath, right chest looks okay. ABDOMEN: Soft, nontender, nondistended. Bowel sounds present, obese. EXTREMITIES: No edema, no cyanosis. DERMATOLOGIC: Warm and dry. No generalized rash. NEUROLOGIC: Alert and oriented x 3, grossly nonfocal. PSYCHIATRIC: Cooperative, appropriate mood, affect slightly anxious. LABORATORY DATA: WBC 10.4, was 17, hemoglobin 10.6, hematocrit 32, platelets 216, and neutrophil 8.6. Sodium 139, potassium 3.9, chloride 108, bicarbonate 24, BUN 17, creatinine 0.5, glucose 115. Lactate 1.1, was 7.9, calcium 7.9. LFTs within normal limits. Albumin 2.0. UA negative. Flu A and B negative. IMAGING: None here. A chest x-ray results at [facility] shows diffuse interstitial infiltrate. No consolidation, pleural effusion or pneumothorax. Heart size is normal. Port-A-Cath with tip in the right superior atrium. IMPRESSION: 1. Acute hypoxic respiratory failure . Chest x-ray shows bilateral interstitial infiltrates. 2. Sepsis, resolved. 3. Lactic acidosis, resolved. 4. Leukocytosis, resolved. 5. History of traumatic brain injury. 6. History of nausea and vomiting. 7. 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 8. History of traumatic brain injury, anxiety, depression, fibromyalgia. 9. The patient is on TPN through right Port-A-Cath. 10. History of hepatitis C, questionable cirrhosis. 11. History of Clostridium difficile. 12. History of gastric bypass surgery and questionable colon resection. 13. History of asthma and chronic obstructive pulmonary disease. RECOMMENDATIONS: 1. Continue empiric Zosyn. 2. Discontinue IV vancomycin. 3. Follow up cultures and labs. 4. Continue to check C. difficile PCR. 5. Continue supportive care. 6. Maintain aspiration precaution. 7. Discussed with nursing staff. Thank you for consulting Infectious Disease to participate in this patient's care. If you have any questions, do not hesitate to contact me. GIOVANNA HINKLE MD DR: TASHA/nts JOB#: [id number] / [id number] STUART
[2019-07-07] MEDS: MIDODRINE 5 MG TABLET PO SCH ×2 (11:53→18:00)
[2019-07-07] MEDS: LEVOTHYROXINE 100 MCG TABLET PO SCH (11:53)
[2019-07-07] MEDS: FLUoxetine HCL 10 MG CAPSULE PO SCH (11:53)
[2019-07-07] MEDS: TOPIRAMATE 100 MG TABLET. PO SCH ×2 (11:53→21:36)
[2019-07-07] MEDS: OMEGA-3 FATTY ACIDS/FISH OIL 1,000 MG CAPSULE. PO SCH (11:53)
[2019-07-07] MEDS: SUCRALFATE 1 GM TABLET. PO SCH ×3 (11:54→21:36)
[2019-07-07] MEDS: PANTOPRAZOLE 40 MG TABLET.DR. PO SCH (11:54)
[2019-07-07] MEDS: ALBUTEROL SULFATE 2.5 MG/3 ML NEBU. NEB SCH ×3 (12:01→18:34)
--- NOTE | 2019-07-07 12:52 | PN ---
DATE: SUBJECTIVE: The patient is resting, slightly propped up in bed, in no apparent respiratory distress. She is awake, alert, responding appropriately. On questioning her, she did complain of cough, shortness of breath, but denied any chills, rigors, or fever. Denied any chest pain. PHYSICAL EXAMINATION: GENERAL: When I examined her, she was pale, but no jaundice, cyanosis or thyromegaly. No jugular venous distention. No lower limb edema. VITAL SIGNS: Her heart rate was 96, blood pressure was 126/69, temperature was 98.1, respiratory rate was 24, and oxygen saturation was 96% on Venturi mask. HEAD, EYES, EARS, NOSE AND THROAT: Showed normocephalic, atraumatic. NECK: Supple. CARDIAC: Normal first and second heart sounds. No gallop or murmur. CHEST: Shows central trachea, equal bilateral expansion, air entry, vesicular breath sounds. Crepitation mostly posteriorly. I could not appreciate any rhonchi. She has a Port-A-Cath in the right infraclavicular fossa. ABDOMEN: Soft, nontender. No guarding or rigidity. No organomegaly. All hernial orifices intact. Bowel sounds normal. NEUROLOGIC: She is definitely awake, alert, responding appropriately. All cranial nerves intact. She moves extremities without difficulty, although she is mostly bedbound, chair bound. She does actually ambulate with a walker. Her intake and output are incompletely recorded. LABORATORY DATA: Her lab work this morning showed a serum sodium 139, potassium 3.9, chloride 108, bicarbonate 24, anion gap of 7, BUN 17, creatinine 0.5, estimated GFR was 127 mL per minute. Her glucose was 115. Lactic acid was down to 1.1, calcium was 7.9. Total bilirubin, AST, ALT, alkaline phosphatase were normal. Total protein was 5.7, albumin 2. Her white cell count is down to 10,400, hemoglobin 10.6, hematocrit 32, MCV 95, and platelet count 216,000. ASSESSMENT: 1. Acute hypoxic respiratory failure. 2. Community-acquired pneumonia. 3. Recurrent bouts of nausea and vomiting. The patient is known to have gastrocolic fistula and has had multiple episodes of admission for the same problem. The patient was seen by Infectious Disease and she is now on piperacillin and tazobactam 3.375 grams IV once a day. She was also given a dose of vancomycin. I will reconcile all her medication and will continue all her medication. Continue the IV fluid, IV antibiotic, antiemetic and follow her closely. LEE RODRIGUEZ MD DR: MARILEE/ramírez JOB#: [id number] / [id number]
[2019-07-07] MEDS: PROPRANOLOL 10 MG TABLET. PO SCH ×2 (13:35→21:35)
[2019-07-07] MEDS ORDERED: CYCLOBENZAPRINE 10 MG TABLET. PO SCH (14:00)
[2019-07-07] MEDS: BUPRENORPHINE TP SCH (14:05)
[2019-07-07] MEDS ORDERED: SUMAtriptan SUCC 6 MG/0.5 ML VIAL. SQ ONE (14:30)
[2019-07-07] MEDS: IV NORMAL SALINE 1000ML BAG 1,000 ML IV SCH (14:43)
[2019-07-07] MEDS: diphenhydrAMINE HCL 25 MG CAPSULE PO SCH ×2 (14:46→21:36)
--- NOTE | 2019-07-07 14:52 | NUR ---
7A Voids per bedpan,large amounts,concentrated,foul. SOA w exertion but recovery time is 2-3 min. Remains on venti- mask. Sats 87-93% dependent on activity at the time. Hypoxic episode resolved.Dr Lopez in, order changes noted. Voiced c/o 'Migraine " . Call to MD jackson ordered home med obtained. Resting more comfortably(1430) Condition report to Cadence HENDERSON 5 SO. Transport notified and on way .... Breathing Rx prior to transfer. Changed form venti mask to NC 5 L w sats of 87-91. Will inform N if air hunger ensues. Condition stable.
[2019-07-07] MEDS: SIMETHICONE 80 MG TAB.CHEW PO PRN (17:58)
--- NOTE | 2019-07-07 18:28 | NUR ---
Received patient from ICU in the 1600 hour and agree with prior nursing assessment. Will continue to monitor patient for changes.
[2019-07-07] MEDS: BUDESONIDE 0.5 MG/2 ML NEBU. NEB SCH (18:34)
[2019-07-07] MEDS ORDERED: NON FORMULARY ITEM (Fluticasone/Salmeterol (Advair 100-50 Diskus) 1 PUFF) IH SCH (21:00)
[2019-07-07] MEDS: KETOTIFEN FUMARATE 0.025% OPHTH SOLUTION BOTTLE. OU SCH (21:00)
[2019-07-07] MEDS: NYSTATIN TOPICAL POWDER 15GM BOTTLE. TP SCH (21:00)
[2019-07-07] MEDS: ATORVASTATIN CALCIUM 10 MG TABLET. PO SCH (21:35)
[2019-07-07] MEDS ORDERED: TOTAL PARENTERAL NUTRITION 1,424.9987 ML, AMINO ACID 15% 60 GM, DEXTROSE 70 % IN WATER ... IV SCH ×10 (22:00)
[2019-07-08] MEDS: IV NORMAL SALINE 1000ML BAG 1,000 ML IV SCH ×2 (00:25→14:15)
[2019-07-08] MEDS: MORPHINE SULFATE 2 MG/ML VIAL. IV PRN ×3 (00:28→09:08)
[2019-07-08 03:00] VITALS: BP 123/68
[2019-07-08] MEDS: ONDANSETRON PF 4 MG/2 ML VIAL. IVP PRN (03:02)
[2019-07-08] MEDS: PIPERACILLIN/TAZOBACTAM 3.375 GM in IV NORMAL SALINE 50ML 50 ML IV SCH ×4 (05:40→23:46)
[2019-07-08] MEDS: LEVOTHYROXINE 100 MCG TABLET PO SCH (05:40)
[2019-07-08] MEDS: ALBUTEROL SULFATE 2.5 MG/3 ML NEBU. NEB SCH ×4 (05:52→20:54)
[2019-07-08] MEDS: BUDESONIDE 0.5 MG/2 ML NEBU. NEB SCH ×2 (05:53→20:54)
[2019-07-08 07:00] VITALS: BP 128/92
[2019-07-08] MEDS: MIDODRINE 5 MG TABLET PO SCH ×3 (07:00→17:59)
[2019-07-08] MEDS: PANTOPRAZOLE 40 MG TABLET.DR. PO SCH (07:28)
[2019-07-08] MEDS: FLUTICASONE 50MCG/NASAL SPRAY 16GM BOTTLE. NS SCH (07:31)
[2019-07-08] MEDS ORDERED: SUVOREXANT 10 MG PO SCH (09:00)
[2019-07-08] MEDS: KETOTIFEN FUMARATE 0.025% OPHTH SOLUTION BOTTLE. OU SCH ×2 (09:00→23:47)
[2019-07-08] MEDS: OMEGA-3 FATTY ACIDS/FISH OIL 1,000 MG CAPSULE. PO SCH (09:01)
[2019-07-08] MEDS: FLUoxetine HCL 10 MG CAPSULE PO SCH (09:01)
[2019-07-08] MEDS: SUCRALFATE 1 GM TABLET. PO SCH ×4 (09:01→21:28)
[2019-07-08] MEDS: diphenhydrAMINE HCL 25 MG CAPSULE PO SCH ×3 (09:01→21:29)
[2019-07-08] MEDS: SIMETHICONE 80 MG TAB.CHEW PO PRN (09:01)
[2019-07-08] MEDS: PROPRANOLOL 10 MG TABLET. PO SCH ×3 (09:03→21:28)
[2019-07-08] MEDS: NYSTATIN TOPICAL POWDER 15GM BOTTLE. TP SCH ×2 (09:10→21:31)
[2019-07-08] MEDS: TOPIRAMATE 100 MG TABLET. PO SCH ×2 (09:21→21:29)
[2019-07-08] MEDS: SUMAtriptan SUCCINATE 25 MG TABLET PO PRN (09:24)
--- NOTE | 2019-07-08 10:02 | PN ---
DATE: 07/08/2019 SUBJECTIVE: The patient is resting, slightly propped up in bed, in no apparent distress. On questioning her, denied any chest pain. She continued to have some shortness of breath, cough with scanty sputum. Nursing staff said that she continued to desaturate even with nasal cannula. She is now on Ventimask. PHYSICAL EXAMINATION: GENERAL: When I saw her this morning, she looked pale, not jaundiced, cyanosed or thyromegaly. No jugular venous distention. No limb edema. VITAL SIGNS: Her heart rate was 86, blood pressure was 128/92, temperature was 98, respiratory rate 20, and oxygen saturation was 90% on 15 liters. HEAD, EYES, EARS, NOSE AND THROAT: Showed normocephalic, atraumatic. NECK: Supple. HEART: Showed normal first and second heart sounds. No gallop or murmur. CHEST: Shows central trachea, equal bilateral chest expansion, air entry, vesicular sounds. No crepitation or rhonchi. ABDOMEN: Distended, soft, nontender. No guarding or rigidity. No organomegaly. All hernial orifice intact. Bowel sounds normal. NEUROLOGIC: She is awake, alert, responding appropriately. All cranial nerves intact. She moves extremities without difficulty, although she is mostly bedbound, chair bound. She does walk for short distance with a walker. Her intake over the last 24 hours was 1050, output was 400. LABORATORY DATA: Her lab work this morning is still pending at the time of this dictation. ASSESSMENT: 1. Acute hypoxic respiratory failure. The patient had had a CT scan done at [facility] showed no evidence of pulmonary emboli. 2. Community-acquired pneumonia, likely due to aspiration. 3. Recurrent nausea and vomiting. 4. The patient is known to have gastrocolic fistula, has multiple admissions before similar problems. PLAN: The plan is to continue with nutritional support in the form of TPN and the patient is on a clear liquid diet. Her diet can be advanced as tolerated. Continue with IV antibiotic in the form of piperacillin, tazobactam as well as vancomycin. The patient does not normally on home oxygen and we will order SCDs for DVT prophylaxis and monitor her labs weekly. I explained to the patient that she does not ready yet to go home. She requires antibiotic and she continues to require oxygen. LEE RODRIGUEZ MD DR: Meño JOB#: [id number] / [id number]
[2019-07-08 11:00] VITALS: BP 123/72
--- NOTE | 2019-07-08 11:02 | PDOC ---
Infectious Disease Note Subjective: Subjective pt says has some nausea ,sob, diarrhea moved out of icu yesterday no f/c Vital Signs: Vital Signs Vital Signs Date Time Temp Pulse Resp B/P (MAP) Pulse Ox O2 Delivery O2 Flow Rate FiO2 07/08/19 09:38 18 88 Venturi Mask 15.0 07/08/19 09:03 86 128/92 07/08/19 07:00 98.2 98.2 Physical Exam: PHYSICAL EXAM 125/73, oxygen saturation 95% on Ventimask. GENERAL: Well-developed, well-nourished, alert, oriented, nontoxic-appearing female, lying in bed comfortably, able to answer questions. HEENT: Normocephalic, atraumatic, anicteric. No thrush. Oral mucosa moist. NECK: Supple, no JVD. LUNGS: Clear bilaterally. No wheezing. HEART: S1, S2. Chest wall Port-A-Cath, right chest looks okay. ABDOMEN: Soft, nontender, nondistended. Bowel sounds present, obese. EXTREMITIES: No edema, no cyanosis. DERMATOLOGIC: Warm and dry. No generalized rash. NEUROLOGIC: Alert and oriented x 3, grossly nonfocal. PSYCHIATRIC: Cooperative, appropriate mood, affect slightly anxious. Medications: Inpatient Meds: Current Medications Medications (Trade) Dose Ordered Sig/Sheri Start Time Stop Time Status Last Admin Dose Admin Acetaminophen/ Aspirin/Caffeine (Excedrin Migraine) 2 tab Q6H PRN 07/07/19 10:00 07/07/19 10:40 DC Albuterol Sulfate (Ventolin Neb Soln) 2.5 mg RTQID 07/07/19 12:00 07/08/19 05:52 2.5 MG Amiodarone HCl 150 mg/Dextrose 103 ml @ 618 mls/hr 1X ONCE 07/07/19 11:00 07/07/19 11:09 Cancel Atorvastatin Calcium (Lipitor) 10 mg QHS 07/07/19 21:00 07/07/19 21:35 10 MG Budesonide (Pulmicort) 0.5 mg RTBID 07/07/19 20:00 07/08/19 05:53 0.5 MG Cyanocobalamin (Vitamin B-12) 1,000 mcg QMONTH 08/06/19 09:00 Cyclobenzaprine HCl (Flexeril) 10 mg TID 07/07/19 14:00 Cancel Diphenhydramine HCl (Benadryl) 25 mg TID 07/07/19 14:00 07/08/19 09:01 25 MG Fish Oil (Fish Oil) 1,000 mg DAILY 07/07/19 11:00 07/08/19 09:01 1,000 MG Fluoxetine HCl (PROzac) 10 mg DAILY 07/07/19 11:00 07/08/19 09:01 10 MG Fluticasone Propionate (Flonase) 2 spray DAILY 07/08/19 09:00 07/08/19 07:31 2 SPRAY Guaifenesin (Robitussin) 400 mg PRN Q4HRS PRN 07/07/19 10:30 Info (Tpn Per Pharmacy) 1 each PRN DAILY PRN 07/07/19 13:15 Ketotifen Fumarate (Zaditor) 1 drop BID 07/07/19 21:00 07/08/19 09:00 1 DROP Levothyroxine Sodium (Synthroid) 100 mcg DAILY06 07/07/19 11:00 07/08/19 05:40 100 MCG Metoprolol Tartrate (Lopressor Vial) 5 mg 1X STAT 07/07/19 10:21 07/07/19 10:22 Cancel Midodrine (Proamatine) 5 mg [id number] 07/07/19 13:00 07/07/19 11:53 5 MG Morphine Sulfate (Morphine Sulfate) 2 mg PRN Q4HRS PRN 07/06/19 22:15 07/08/19 09:08 2 MG Non-Formulary Medication 1 ea TID 07/07/19 14:00 07/08/19 07:28 1 EA Non-Formulary Medication (Buprenorphine (Butrans)) 1 each Q5DAYS 07/07/19 09:00 07/07/19 14:05 1 EACH Non-Formulary Medication (Fluticasone/ Salmeterol (Advair 100-50 Diskus)) 1 puff BID 07/07/19 21:00 07/07/19 10:38 DC Non-Formulary Medication (Oxycodone Hcl ) 1 tab PRN BID PRN 07/07/19 10:00 07/07/19 10:29 DC Non-Formulary Medication (Suvorexant (Belsomra)) 10 mg DAILY 07/08/19 09:00 UNV Nystatin (Nystop) 1 fatou BID 07/07/19 21:00 07/08/19 09:10 1 FATOU Ondansetron HCl (Zofran Odt) 4 mg PRN Q4HRS PRN 07/07/19 10:00 Ondansetron HCl (Zofran) 4 mg PRN Q8HRS PRN 07/07/19 03:30 07/08/19 03:02 4 MG Oxycodone HCl (Roxicodone) 20 mg BID PRN 07/08/19 09:30 Pantoprazole Sodium (Protonix) 40 mg DAILYAC 07/07/19 11:00 07/08/19 07:28 40 MG Piperacillin Sod/ Tazobactam Sod (Zosyn Per Pharmacy) 1 each PRN DAILY PRN 07/06/19 22:15 Piperacillin Sod/ Tazobactam Sod 3.375 gm/Sodium Chloride 50 ml @ 100 mls/hr Q6HRS 07/07/19 00:00 07/08/19 05:40 100 MLS/HR Promethazine HCl (Phenergan) 25 mg PRN Q6HRS PRN 07/07/19 10:45 Propranolol HCl (Inderal) 10 mg TID 07/07/19 14:00 07/08/19 09:03 10 MG Simethicone (Gas-X) 80 mg PRN AFTMEALHC PRN 07/07/19 10:45 07/08/19 09:01 80 MG Sodium Chloride 90 meq/Potassium Chloride 50 meq/ Potassium Phosphate 13.6 mmol/Magnesium Sulfate 10 meq/ Calcium Gluconate 10 meq/ Multivitamins 10 ml/Chromium/ Copper/Manganese/ Seleni/Zn 1 ml/ Total Parenteral Nutrition/Amino Acids/Dextrose/ Fat Emulsion Intravenous 1,512 ml @ 63 mls/hr TPN CONT 07/07/19 22:00 07/08/19 21:59 07/07/19 21:39 63 MLS/HR Sucralfate (Carafate) 1 gm QID 07/07/19 13:00 07/08/19 09:01 1 GM Sumatriptan Succinate (Imitrex) 25 mg PRN Q2HR PRN 07/07/19 14:00 07/08/19 09:24 25 MG Topiramate (Topamax) 100 mg BID 07/07/19 11:00 07/08/19 09:21 100 MG Vancomycin HCl (Vanco Per Pharmacy) 1 each PRN DAILY PRN 07/06/19 22:30 07/07/19 08:54 DC 07/06/19 22:48 1 EACH Vancomycin HCl (Vancomycin Trough Level) 1 each 1X ONCE 07/08/19 10:00 07/07/19 08:54 DC Vancomycin HCl 1.5 gm/Sodium Chloride 500 ml @ 250 mls/hr Q12H 07/07/19 10:30 07/07/19 08:53 DC Vancomycin HCl 2 gm/Sodium Chloride 500 ml @ 250 mls/hr 1X ONCE 07/06/19 22:30 07/07/19 00:29 DC 07/06/19 22:36 250 MLS/HR Objective: Assessment: 1. Actue hypoxic resp failure 2. Sepsis, resolved. 3. Lactic acidosis, resolved. 4. Leukocytosis, resolved. 5. History of traumatic brain injury. 6. History of nausea and vomiting. 7. 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 8. History of traumatic brain injury, anxiety, depression, fibromyalgia. 9. The patient is on TPN through right Port-A-Cath. 10. History of hepatitis C, questionable cirrhosis. 11. History of Clostridium difficile. 12. History of gastric bypass surgery and questionable colon resection. 13. History of asthma and chronic obstructive pulmonary disease. Plan: Plan of Care Continue empiric Zosyn. Follow up cultures and labs. . Maintain aspiration precaution. Discussed with nursing staff. GIOVANNA HINKLE MD Jul 08, 2019 11:02
[2019-07-08 12:29] LABS: BASO # 0.1 x10^3/uL (0.0-0.2); BASO % 1 % (0-3); EOS # 0.1 x10^3/uL (0.0-0.7); EOS % 1 % (0-3); HEMATOCRIT 31.2 % (36.0-47.0); HEMOGLOBIN 10.3 g/dL (12.0-15.5); LYMPH # 1.1 x10^3/uL (1.0-4.8); LYMPH % 15 % (24-48); MEAN CORPUSCULAR HEMOGLOBIN 31 pg (25-35); MEAN CORPUSCULAR HGB CONC 33 g/dL (31-37); MEAN CORPUSCULAR VOLUME 94 fL (79-100); MONO # 0.7 x10^3/uL (0.0-1.1); MONO % 10 % (0-9); NEUT # 5.2 x10^3/uL (1.8-7.7); NEUT % 72 % (31-73); PLATELET COUNT 212 x10^3/uL (140-400); RED BLOOD COUNT 3.32 x10^6/uL (3.50-5.40); RED CELL DISTRIBUTION WIDTH 14.3 % (11.5-14.5); WHITE BLOOD COUNT 7.3 x10^3/uL (4.0-11.0)
[2019-07-08 12:55] LABS: ALBUMIN 1.7 g/dL (3.4-5.0); ALBUMIN/GLOBULIN RATIO 0.4 (1.0-1.7); CALCIUM 8.1 mg/dL (8.5-10.1); CREATININE 0.6 mg/dL (0.6-1.0); GFR 103.4; POTASSIUM 3.7 mmol/L (3.5-5.1); TOTAL BILIRUBIN 0.3 mg/dL (0.2-1.0); TOTAL PROTEIN 5.6 g/dL (6.4-8.2)
[2019-07-08 12:56] LABS: MAGNESIUM 1.8 mg/dL (1.8-2.4)
[2019-07-08] MEDS: TPN PER PHARMACY MC PRN (13:12)
--- NOTE | 2019-07-08 13:13 | NUR ---
Pharmacy TPN Dosing Note S: BERNARDO GRUBER is a 58 year old F Currently receiving Central Continuous TPN started B:Pertinent PMH: Severe protein-calorie malnutrition, status post gastric bypass surgery. Current diet: CARDIAC LABS: Sodium: 139 Potassium: 3.7 Chloride: 108 Calcium: 8.1 Corrected Calcium: 9.94 Magnesium: 1.8 SCr: 0.6 Glucose: 112 Albumin: 1.7 AST: 18 ALT: 10 TPN FORMULA: TPN TYPE: Central Continuous AMINO ACIDS: 60 gm DEXTROSE: 195 gm LIPIDS: 20 gm SODIUM CHLORIDE: 90 mEq SODIUM ACETATE: - mEq SODIUM PHOSPHATE: - mmol POTASSIUM CHLORIDE: 50 mEq POTASSIUM ACETATE: - mEq POTASSIUM PHOSPHATE: 13.6 mmol MAGNESIUM: 10 mEq CALCIUM: 10 mEq INSULIN: - units MULTIPLE VITAMIN: 10 ml TRACE ELEMENTS: 1 ML ml(s) R: Continue TPN Will monitor electrolytes, glucose, and tolerance to TPN. ROLANDO LOBO [facility], 07/08/19 [id number]
[2019-07-08] MEDS: oxyCODONE IR 5 MG TABLET PO PRN ×2 (13:52→21:31)
[2019-07-08 15:00] VITALS: BP 126/64
--- NOTE | 2019-07-08 15:52 | NUR ---
SW consult for unkempt appearance and difficulty for ADL's received. Unable to see pt today due to caseload and acuity. Pt will benefit from PT/OT eval/tx.
[2019-07-08 19:00] VITALS: BP 123/72
[2019-07-08] MEDS: ATORVASTATIN CALCIUM 10 MG TABLET. PO SCH (21:28)
[2019-07-08] MEDS ORDERED: TOTAL PARENTERAL NUTRITION 1,424.9987 ML, AMINO ACID 15% 60 GM, DEXTROSE 70 % IN WATER ... IV SCH ×10 (22:00)
[2019-07-08 23:00] VITALS: BP 128/78
[2019-07-09 03:00] VITALS: BP 119/77
[2019-07-09] MEDS: IV NORMAL SALINE 1000ML BAG 1,000 ML IV SCH (03:35)
[2019-07-09] MEDS: PIPERACILLIN/TAZOBACTAM 3.375 GM in IV NORMAL SALINE 50ML 50 ML IV SCH ×3 (05:39→17:40)
[2019-07-09] MEDS: LEVOTHYROXINE 100 MCG TABLET PO SCH (05:49)
[2019-07-09 06:09] LABS: CALCIUM 8.5 mg/dL (8.5-10.1); CREATININE 0.6 mg/dL (0.6-1.0); GFR 103.4; MAGNESIUM 1.5 mg/dL (1.8-2.4); PHOSPHORUS 2.9 mg/dL (2.6-4.7); POTASSIUM 3.8 mmol/L (3.5-5.1)
[2019-07-09 07:00] VITALS: BP 144/82
[2019-07-09] MEDS: MIDODRINE 5 MG TABLET PO SCH ×3 (07:00→17:41)
[2019-07-09] MEDS: ALBUTEROL SULFATE 2.5 MG/3 ML NEBU. NEB SCH ×4 (07:34→21:14)
[2019-07-09] MEDS: BUDESONIDE 0.5 MG/2 ML NEBU. NEB SCH ×2 (07:34→21:14)
[2019-07-09] MEDS: oxyCODONE IR 5 MG TABLET PO PRN (08:14)
[2019-07-09] MEDS: TOPIRAMATE 100 MG TABLET. PO SCH ×2 (08:15→20:37)
[2019-07-09] MEDS: FLUTICASONE 50MCG/NASAL SPRAY 16GM BOTTLE. NS SCH (08:15)
[2019-07-09] MEDS: SUCRALFATE 1 GM TABLET. PO SCH ×4 (08:15→20:37)
[2019-07-09] MEDS: PANTOPRAZOLE 40 MG TABLET.DR. PO SCH (08:15)
[2019-07-09] MEDS: OMEGA-3 FATTY ACIDS/FISH OIL 1,000 MG CAPSULE. PO SCH (08:15)
[2019-07-09] MEDS: diphenhydrAMINE HCL 25 MG CAPSULE PO SCH ×3 (08:16→20:37)
[2019-07-09] MEDS: FLUoxetine HCL 10 MG CAPSULE PO SCH (08:16)
[2019-07-09] MEDS: PROPRANOLOL 10 MG TABLET. PO SCH ×3 (08:23→20:37)
[2019-07-09 11:00] VITALS: BP 131/78
[2019-07-09] MEDS ORDERED: MAGNESIUM SULFATE 2GM 50 ML IV ONE (11:00)
[2019-07-09] MEDS: NYSTATIN TOPICAL POWDER 15GM BOTTLE. TP SCH ×2 (11:31→20:37)
[2019-07-09] MEDS: KETOTIFEN FUMARATE 0.025% OPHTH SOLUTION BOTTLE. OU SCH ×2 (11:31→20:37)
[2019-07-09] MEDS: TPN PER PHARMACY MC PRN (11:38)
--- NOTE | 2019-07-09 11:38 | NUR ---
Pharmacy TPN Dosing Note S: BERNARDO GRUBER is a 58 year old F Currently receiving Central Continuous TPN started B:Pertinent PMH: Severe protein-calorie malnutrition, status post gastric bypass surgery. Height: 5 feet, 3 inches Weight: 93.510037 kg Current diet: CARDIAC LABS: Sodium: 139 Potassium: 3.8 Chloride: 108 Calcium: 8.5 Corrected Calcium: 10.34 Magnesium: 1.5 CO2: 26 SCr: 0.6 Glucose: 110 Albumin: 1.7 AST: 18 ALT: 10 TPN FORMULA: TPN TYPE: Central Continuous AMINO ACIDS: 60 gm DEXTROSE: 195 gm LIPIDS: 20 gm SODIUM CHLORIDE: 90 mEq SODIUM ACETATE: - mEq SODIUM PHOSPHATE: - mmol POTASSIUM CHLORIDE: 50 mEq POTASSIUM ACETATE: - mEq POTASSIUM PHOSPHATE: 13.6 mmol MAGNESIUM: 15 mEq CALCIUM: 10 mEq INSULIN: - units MULTIPLE VITAMIN: 10 ml TRACE ELEMENTS: 1 ML ml(s) TPN PLAN: Mag low, 2gm bolus this am, will increase mag in TPN for tonight, labs in the am R: Continue TPN as written above. Will monitor electrolytes, glucose, and tolerance to TPN. DEMARCUS BROOKS [facility], 07/09/19 [id number]
--- NOTE | 2019-07-09 12:25 | PDOC ---
Infectious Disease Note Subjective Subjective Breathing better, VM 50% + cough Some nausea without vomiting, or diarrhea No fever or chills TPN ROS ROS per HPI Vital Sign Vital Signs Vital Signs Date Time Temp Pulse Resp B/P (MAP) Pulse Ox O2 Delivery O2 Flow Rate FiO2 07/09/19 12:00 90 9.0 07/09/19 11:31 Venturi Mask 07/09/19 11:00 98.2 74 20 131/78 (95) 98.2 Physical Exam PHYSICAL EXAM GENERAL: Propped up in bed, alert, eating HEENT: Oral cavity clear NECK: Supple, no JVD. LUNGS: Clear anteriorly, nonlabored HEART: S1, S2. ABDOMEN: Obese, soft, nontender, bowel sounds present EXTREMITIES: No edema, no cyanosis. DERMATOLOGIC: Warm and dry. NEUROLOGIC: Alert, answers questions appropriately Chest wall Port-A-Cath, right chest looks okay. Labs Lab Laboratory Tests Test 07/09/19 05:40 Sodium Level 139 mmol/L (136-145) Potassium Level 3.8 mmol/L (3.5-5.1) Chloride Level 108 mmol/L (98-107) Carbon Dioxide Level 26 mmol/L (21-32) Anion Gap 5 (6-14) Blood Urea Nitrogen 8 mg/dL (7-20) Creatinine 0.6 mg/dL (0.6-1.0) Estimated GFR (Cockcroft-Gault) 103.4 Glucose Level 110 mg/dL (70-99) Calcium Level 8.5 mg/dL (8.5-10.1) Phosphorus Level 2.9 mg/dL (2.6-4.7) Magnesium Level 1.5 mg/dL (1.8-2.4) Micro Microbiology 07/06/19 Blood Culture - Preliminary, Resulted NO GROWTH AFTER 2 DAYS Objective Assessment Actue hypoxic resp failure Sepsis, resolved. Lactic acidosis, resolved. Leukocytosis, resolved. History of traumatic brain injury. History of nausea and vomiting. 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 History of traumatic brain injury, anxiety, depression, fibromyalgia. The patient is on TPN through right Port-A-Cath. History of hepatitis C, questionable cirrhosis. History of Clostridium difficile. History of gastric bypass surgery and questionable colon resection. History of asthma and chronic obstructive pulmonary disease. Plan Plan of Care Continue empiric Zosyn (07/07) BC neg so far Maintain aspiration precaution. D/w nursing Attending Co-Sign Attending Co-Sign The patient was seen and interviewed as well as examined at the bedside. The chart was reviewed. The case was discussed. Agree with the plan of care. SMITA VIEIRA APRN Jul 09, 2019 12:25 NINA BELL MD Jul 09, 2019 17:03
--- NOTE | 2019-07-09 14:23 | RAD ---
EXAM: CHEST 1 VIEW History: Hypoxia COMPARISON: 08/30/2018 TECHNIQUE: Single portable radiograph of the chest Findings/ impression: Mild cardiomegaly. Right-sided Port-A-Cath is identified. Mild diffuse prominent bilateral interstitial lung markings likely congestive changes or interstitial changes again identified. Electronically signed by: Jalen Nowak MD (07/09/2019 2:20 PM) [facility]
[2019-07-09 15:00] VITALS: BP 120/68
--- NOTE | 2019-07-09 17:10 | PN ---
DATE: 07/09/2019 SUBJECTIVE: The patient is resting, almost flat in bed, in no apparent distress. She denied any chest pain, denied any shortness of breath; however, she complained of polyuria and the nursing staff did attempt to cut down her oxygen from Ventimask to nasal cannula and so far, failed. She continued to desaturate. She did have a CT angio of the chest when she was seen in the Emergency Room before the transfer to [facility] and was negative for pulmonary emboli. PHYSICAL EXAMINATION: GENERAL: When I examined her this morning, she was pale, but no jaundice, cyanosis or thyromegaly. No jugular venous distention. No lower limb edema. VITAL SIGNS: Her heart rate was 77, blood pressure 144/82, temperature was 97.9, respiratory rate 24 and oxygen saturation was 91% on 15 liters by nonrebreather mask. HEAD, EYES, EARS, NOSE AND THROAT: Showed normocephalic, atraumatic. NECK: Supple. HEART: Showed normal first and second heart sounds. No gallop or murmur. CHEST: Clear to auscultation. No crepitation or rhonchi. ABDOMEN: Distended, soft, nontender. NEUROLOGIC: She was awake, alert, responding appropriately. All cranial nerves intact. She moves extremities without difficulty, although she is mostly bedbound. ASSESSMENT: 1. Acute hypoxic respiratory failure. The patient did have a CT done at [facility], showed no evidence of pulmonary emboli. 2. Community-acquired pneumonia, likely due to aspiration. 3. Recurrent nausea and vomiting has resolved. The patient is known to have gastrocolic fistula, has had multiple admissions before for similar problems. PLAN: To discontinue her IV fluid altogether. Repeat chest x-ray here. I will consult Dr. Salmeron as surprisingly she continued to be extremely hypoxic and requiring almost 15 liters by Ventimask to maintain her oxygen saturation more than 90% despite treatment with IV antibiotic as well as the negative CT for a PE, pneumothorax or pleural effusion. LEE RODRIGUEZ MD DR: MARILEE/ramírez JOB#: [id number] / [id number]
[2019-07-09 19:00] VITALS: BP 132/75
[2019-07-09] MEDS: ATORVASTATIN CALCIUM 10 MG TABLET. PO SCH (20:37)
[2019-07-09] MEDS ORDERED: [UNRECOGNIZED DRUG - OTHER] IV SCH ×10 (22:00)
[2019-07-09] MEDS ORDERED: DEXTROSE 70% IV SCH ×10 (22:00)
[2019-07-09] MEDS ORDERED: TOTAL PARENTERAL NUTRITION IV SCH ×10 (22:00)
[2019-07-09] MEDS ORDERED: AMINO ACID IV SCH ×10 (22:00)
[2019-07-09 23:00] VITALS: BP 136/78
[2019-07-10] MEDS: PIPERACILLIN/TAZOBACTAM 3.375 GM in IV NORMAL SALINE 50ML 50 ML IV SCH ×4 (00:20→17:08)
[2019-07-10 03:00] VITALS: BP 121/66
[2019-07-10] MEDS: LEVOTHYROXINE 100 MCG TABLET PO SCH (06:12)
[2019-07-10 07:00] VITALS: BP 148/76
[2019-07-10] MEDS: BUDESONIDE 0.5 MG/2 ML NEBU. NEB SCH ×2 (07:36→19:36)
[2019-07-10] MEDS: ALBUTEROL SULFATE 2.5 MG/3 ML NEBU. NEB SCH ×4 (07:36→19:36)
[2019-07-10] MEDS: SUCRALFATE 1 GM TABLET. PO SCH ×4 (09:14→21:28)
[2019-07-10] MEDS: OMEGA-3 FATTY ACIDS/FISH OIL 1,000 MG CAPSULE. PO SCH (09:14)
[2019-07-10] MEDS: MIDODRINE 5 MG TABLET PO SCH ×3 (09:15→17:44)
[2019-07-10] MEDS: KETOTIFEN FUMARATE 0.025% OPHTH SOLUTION BOTTLE. OU SCH ×2 (09:15→21:27)
[2019-07-10] MEDS: PANTOPRAZOLE 40 MG TABLET.DR. PO SCH (09:15)
[2019-07-10] MEDS: PROPRANOLOL 10 MG TABLET. PO SCH ×3 (09:15→21:28)
[2019-07-10] MEDS: diphenhydrAMINE HCL 25 MG CAPSULE PO SCH ×3 (09:15→21:28)
[2019-07-10] MEDS: TOPIRAMATE 100 MG TABLET. PO SCH ×2 (09:15→21:28)
[2019-07-10] MEDS: FLUoxetine HCL 10 MG CAPSULE PO SCH (09:15)
[2019-07-10] MEDS: NYSTATIN TOPICAL POWDER 15GM BOTTLE. TP SCH ×2 (09:16→21:27)
[2019-07-10] MEDS: FLUTICASONE 50MCG/NASAL SPRAY 16GM BOTTLE. NS SCH (09:16)
[2019-07-10 09:48] LABS: CALCIUM 8.7 mg/dL (8.5-10.1); CREATININE 0.6 mg/dL (0.6-1.0); GFR 103.4; MAGNESIUM 1.5 mg/dL (1.8-2.4); PHOSPHORUS 2.1 mg/dL (2.6-4.7); POTASSIUM 3.8 mmol/L (3.5-5.1)
--- NOTE | 2019-07-10 09:55 | CONS ---
DATE OF CONSULTATION: PULMONARY CONSULTATION ATTENDING PHYSICIAN: Andrea Lopez MD REASON FOR CONSULTATION: Abnormal CT chest, diffuse pneumonitis. HISTORY OF PRESENT ILLNESS: The patient is a 58-year-old obese patient who has history of chronic alcoholism, chronic obstructive airway disease, history of gastric bypass surgery, history of traumatic brain injury. She has history of chronic pain syndrome and severe protein-calorie malnutrition and has been on TPN. She presented to [facility] with complaint of shortness of breath, cough and body aches. She had some nausea and vomiting as well along with diarrhea. The patient's white cell count was elevated. Her chest x-ray showed diffuse interstitial infiltrates. Her flu screen was negative. She underwent CTA chest, which was also reviewed by me. There were diffuse ground-glass infiltrates. There was no evidence of pleural effusion. The patient was transferred to [facility] due to persistent hypoxia. The patient has been seen by different consultants including Infectious Disease. She states she smoked for many years. She is currently on 4 liters. She is a very poor historian and very difficult to obtain much history from the patient. PAST MEDICAL HISTORY: History of gastric bypass, history of possible anastomotic ulcer, history of colon resection, history of colonic fistula, history of C. diff, history of cholecystectomy, chronic hepatitis C, traumatic brain injury, hypothyroidism, chronic obstructive airway disease. Migraine headaches. History of long-term opioid dependence. PAST SURGICAL HISTORY: Gastric bypass surgery, history of Port-A-Cath. History of UPPP. Tonsillectomy, adenoidectomy, cholecystectomy and others. ALLERGIES: ASPIRIN, CELECOXIB, CODEINE, ROFECOXIB AND AMBIEN. FAMILY HISTORY: Unable to obtain from the patient. MEDICATIONS: Reviewed as listed in the MRAD. REVIEW OF SYSTEMS: Very difficult to obtain from the patient due to her being a poor historian. PHYSICAL EXAMINATION: GENERAL: She is in no obvious respiratory distress. VITAL SIGNS: Reviewed. Pulse ox 94% on 4 liters. Blood pressure is stable, afebrile with T-max of 100. HEENT: Sclerae nonicteric. NECK: Supple. LUNGS: With diminished breath sounds with few crackles posteriorly. CARDIOVASCULAR: Regular rate. ABDOMEN: Soft, nontender. EXTREMITIES: With no pitting edema. LABORATORY DATA: Reviewed. White cell count 7.3, hemoglobin 10.3 and platelets are 212. BUN and creatinine 8 and 0.6. IMPRESSION: 1. Acute hypoxic respiratory failure secondary to diffuse interstitial pneumonitis, likely viral. 2. Abnormal CT chest with diffuse ground-glass infiltrates without any significant pleural effusion. She has a low-grade fever. Even though the influenza screen is negative, this is highly suspicious for viral pneumonitis/acute lung injury. 3. No significant history of vaping. 4. History of underlying chronic obstructive pulmonary disease. Unknown FEV1. 5. History of traumatic brain injury. 6. History of gastric bypass surgery. 7. Severe protein-calorie malnutrition. Currently on TPN. 8. Chronic opioid dependence. RECOMMENDATIONS: 1. From a pulmonary standpoint, I will continue with present oxygen to keep saturation 94% and above. 2. Continue present bronchodilators. 3. We will obtain sed rate, and if it is high, we will consider initiating steroids. 4. Continue broad spectrum antibiotics per Infectious Disease. 5. I would expect slow and gradual improvement radiographically and clinically. 6. Discussed with RN. We will follow along with you. ANGI PACHECO MD DR: TAY/ramírez JOB#: [id number] / [id number]
[2019-07-10] MEDS: TPN PER PHARMACY MC PRN (10:39)
--- NOTE | 2019-07-10 10:39 | NUR ---
Pharmacy TPN Dosing Note S: BERNARDO GRUBER is a 58 year old F Currently receiving Central Continuous TPN started B:Pertinent PMH: Severe protein-calorie malnutrition, status post gastric bypass surgery. Height: 5 feet, 3 inches Weight: 93.852540 kg Current diet: CARDIAC LABS: Sodium: 142 Potassium: 3.8 Chloride: 109 Calcium: 8.7 Corrected Calcium: 10.54 Magnesium: 1.5 CO2: 22 SCr: 0.6 Glucose: 151 Albumin: 1.7 AST: 18 ALT: 10 TPN FORMULA: TPN TYPE: Central Continuous AMINO ACIDS: 60 gm DEXTROSE: 195 gm LIPIDS: 20 gm SODIUM CHLORIDE: 90 mEq SODIUM ACETATE: - mEq SODIUM PHOSPHATE: - mmol POTASSIUM CHLORIDE: 40 mEq POTASSIUM ACETATE: - mEq POTASSIUM PHOSPHATE: 20 mmol MAGNESIUM: 20 mEq CALCIUM: 10 mEq INSULIN: - units MULTIPLE VITAMIN: 10 ml TRACE ELEMENTS: 1 ML ml(s) TPN PLAN: Mag low, 2gm bolus this am, will increase to 20meq Phos low, 13.6mmol x1 this am, increase to 20mmol KPhos and decrease KCl to 40meq for net even potassium Labs in the am R: Continue TPN as written above. Will monitor electrolytes, glucose, and tolerance to TPN. DEMARCUS BROOKS [facility], 07/10/19 [id number]
[2019-07-10 11:00] VITALS: BP 142/86
[2019-07-10] MEDS ORDERED: POTASSIUM PHOSPHATE DIBASIC 13.6 MMOL in IV NORMAL SALINE 100ML 100 ML IV ONE (11:00)
[2019-07-10] MEDS ORDERED: MAGNESIUM SULFATE 2GM 50 ML IV ONE (11:00)
--- NOTE | 2019-07-10 12:48 | PDOC ---
Infectious Disease Note Subjective Subjective Now on 4L O2 No fever or chills TPN Vital Sign Vital Signs Vital Signs Date Time Temp Pulse Resp B/P (MAP) Pulse Ox O2 Delivery O2 Flow Rate FiO2 07/10/19 12:10 94 Nasal Cannula 4.0 07/10/19 11:00 97.8 94 19 142/86 (104) 97.8 Physical Exam PHYSICAL EXAM GENERAL: Propped up in bed, alert, trying to call son HEENT: Oral cavity clear NECK: Supple, no JVD. LUNGS: Diminshed aeration bases HEART: S1, S2. ABDOMEN: Obese, soft, nontender, bowel sounds present EXTREMITIES: No edema, no cyanosis. DERMATOLOGIC: Warm and dry. NEUROLOGIC: Alert, answers a few questions appropriately Chest wall Port-A-Cath without signs of infection Labs Lab Laboratory Tests Test 07/10/19 09:30 Erythrocyte Sedimentation Rate 128 (0-25) Sodium Level 142 mmol/L (136-145) Potassium Level 3.8 mmol/L (3.5-5.1) Chloride Level 109 mmol/L (98-107) Carbon Dioxide Level 22 mmol/L (21-32) Anion Gap 11 (6-14) Blood Urea Nitrogen 6 mg/dL (7-20) Creatinine 0.6 mg/dL (0.6-1.0) Estimated GFR (Cockcroft-Gault) 103.4 Glucose Level 151 mg/dL (70-99) Calcium Level 8.7 mg/dL (8.5-10.1) Phosphorus Level 2.1 mg/dL (2.6-4.7) Magnesium Level 1.5 mg/dL (1.8-2.4) Micro Microbiology 07/06/19 Blood Culture - Preliminary, Resulted NO GROWTH AFTER 3 DAYS Objective Assessment Actue hypoxic resp failure. Abnormal CT chest with diffuse ground-glass infiltrates. ESR 128. pulmonary following. possibly viral pneumonitis/acute lung injury. Sepsis, resolved. Lactic acidosis, resolved. Leukocytosis, resolved. History of traumatic brain injury. History of nausea and vomiting. 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 History of traumatic brain injury, anxiety, depression, fibromyalgia. The patient is on TPN through right Port-A-Cath. History of hepatitis C, questionable cirrhosis. History of Clostridium difficile. History of gastric bypass surgery and questionable colon resection. History of asthma and chronic obstructive pulmonary disease. Plan Plan of Care Continue empiric Zosyn (07/07) BC neg so far Maintain aspiration precaution. Looks comfortable Attending Co-Sign Attending Co-Sign The patient was seen and interviewed as well as examined at the bedside. The chart was reviewed. The case was discussed. Agree with the plan of care. SMITA VIEIRA APRN Jul 10, 2019 12:48 NINA BELL MD Jul 10, 2019 15:50
[2019-07-10] MEDS: MORPHINE SULFATE 2 MG/ML VIAL. IV PRN (14:45)
[2019-07-10 15:00] VITALS: BP 144/82
[2019-07-10 19:00] VITALS: BP 132/75
--- NOTE | 2019-07-10 20:13 | PN ---
DATE: 07/10/2019 SUBJECTIVE: The patient is resting, slightly propped up in bed, no apparent distress, awake, alert. She is now on only 4 liters of oxygen, maintaining her oxygen saturations 95%. On questioning her, she denied any complaints. PHYSICAL EXAMINATION: GENERAL: When I examined here, she was pale, no jaundice, cyanosis or thyromegaly. No jugular venous distension. No lower limb edema. VITAL SIGNS: Her heart rate was 77, blood pressure 148/76, temperature was 97.8, respiratory rate was 19 and oxygen saturation was 94% on 4 liters of oxygen. HEAD, EYES, EARS, NOSE AND THROAT: Showed normocephalic, atraumatic. NECK: Supple. CARDIAC: Normal first and second heart sounds. No gallop or murmur. CHEST: Clear to auscultation. No crepitation or rhonchi. ABDOMEN: Slightly distended, soft, nontender. NEUROLOGIC: She was awake, alert, responding appropriately. All cranial nerves intact. She moves extremities without difficulty, although she is mostly bedbound, chair bound. She does walk with a walker for short distances. Her intake over the last 24 hours was 2950, no output was recorded. LABORATORY DATA: As of this morning, her serum sodium was 142, potassium 3.8, chloride 109, bicarbonate 22, anion gap of 11, BUN 6, creatinine 0.6, estimated GFR was 103 mL per minute. Her glucose 151, calcium was 8.7, phosphorus 2.1, magnesium was 1.5. ASSESSMENT: 1. Acute hypoxic respiratory failure, improving. Her oxygen requirement is down from 12 liters by Ventimask to 4 liters nasal cannula. 2. Community-acquired pneumonia, likely to aspiration. 3. Recurrent nausea and vomiting, resolved. 4. The patient is known to have gastrocolic fistula, has multiple admissions before for similar problems. PLAN: Continue with plans to continue with broad-spectrum antibiotic. Continue with oxygen supplementation and bronchodilator. LEE RODRIGUEZ MD DR: MARILEE/ramírez JOB#: [id number] / [id number]
[2019-07-10] MEDS: LACTOBACILLUS RHAMNOSUS GG 1 CAPSULE. PO SCH (21:28)
[2019-07-10] MEDS: ATORVASTATIN CALCIUM 10 MG TABLET. PO SCH (21:28)
[2019-07-10] MEDS ORDERED: TOTAL PARENTERAL NUTRITION IV SCH ×10 (22:00)
[2019-07-10] MEDS ORDERED: DEXTROSE 70% IV SCH ×10 (22:00)
[2019-07-10] MEDS ORDERED: [UNRECOGNIZED DRUG - OTHER] IV SCH ×10 (22:00)
[2019-07-10] MEDS ORDERED: AMINO ACID IV SCH ×10 (22:00)
[2019-07-10 22:52] VITALS: BP 127/82
[2019-07-11] MEDS: PIPERACILLIN/TAZOBACTAM 3.375 GM in IV NORMAL SALINE 50ML 50 ML IV SCH ×5 (00:56→23:28)
[2019-07-11] MEDS: MORPHINE SULFATE 2 MG/ML VIAL. IV PRN ×2 (01:02→20:08)
[2019-07-11] MEDS: ONDANSETRON PF 4 MG/2 ML VIAL. IVP PRN (01:02)
[2019-07-11 03:00] VITALS: BP 101/82
[2019-07-11] MEDS: LEVOTHYROXINE 100 MCG TABLET PO SCH (05:26)
[2019-07-11] MEDS: MIDODRINE 5 MG TABLET PO SCH ×3 (05:26→17:52)
[2019-07-11] MEDS: BUDESONIDE 0.5 MG/2 ML NEBU. NEB SCH ×2 (06:18→20:15)
[2019-07-11] MEDS: ALBUTEROL SULFATE 2.5 MG/3 ML NEBU. NEB SCH ×4 (06:18→20:15)
[2019-07-11 06:22] LABS: CALCIUM 8.5 mg/dL (8.5-10.1); CREATININE 0.6 mg/dL (0.6-1.0); GFR 103.4; MAGNESIUM 1.9 mg/dL (1.8-2.4); PHOSPHORUS 4.2 mg/dL (2.6-4.7); POTASSIUM 3.8 mmol/L (3.5-5.1)
[2019-07-11 07:00] VITALS: BP 126/70
[2019-07-11] MEDS: FLUTICASONE 50MCG/NASAL SPRAY 16GM BOTTLE. NS SCH (08:31)
[2019-07-11] MEDS: FLUoxetine HCL 10 MG CAPSULE PO SCH (08:32)
[2019-07-11] MEDS: LACTOBACILLUS RHAMNOSUS GG 1 CAPSULE. PO SCH ×2 (08:33→21:07)
[2019-07-11] MEDS: OMEGA-3 FATTY ACIDS/FISH OIL 1,000 MG CAPSULE. PO SCH (08:33)
[2019-07-11] MEDS: PANTOPRAZOLE 40 MG TABLET.DR. PO SCH (08:33)
[2019-07-11] MEDS: diphenhydrAMINE HCL 25 MG CAPSULE PO SCH ×3 (08:33→21:07)
[2019-07-11] MEDS: PROPRANOLOL 10 MG TABLET. PO SCH ×3 (08:33→21:00)
[2019-07-11] MEDS: TOPIRAMATE 100 MG TABLET. PO SCH ×2 (08:33→21:08)
[2019-07-11] MEDS: SUCRALFATE 1 GM TABLET. PO SCH ×4 (08:33→21:07)
[2019-07-11] MEDS: KETOTIFEN FUMARATE 0.025% OPHTH SOLUTION BOTTLE. OU SCH ×2 (08:37→21:10)
[2019-07-11] MEDS: NYSTATIN TOPICAL POWDER 15GM BOTTLE. TP SCH ×2 (08:42→21:08)
--- NOTE | 2019-07-11 09:34 | PDOC ---
PULMONARY PROGRESS NOTES Subjective PT STILL SOA COUGH NON PRODUCTIVE Vitals Vital Signs Date Time Temp Pulse Resp B/P (MAP) Pulse Ox O2 Delivery O2 Flow Rate FiO2 07/11/19 08:33 69 126/70 07/11/19 07:00 98.2 18 94 Nasal Cannula 4.0 98.2 ROS: No Nausea, No Chest Pain, No Abdominal Pain, No Increase Cough General: Alert, No acute distress HEENT: Other Lungs: Crackles Cardiovascular: S1, S2 Abdomen: Soft, Non-tender, Other Neuro Exam: Alert Extremities: Other Skin: Warm Labs Laboratory Tests Test 07/10/19 09:30 07/11/19 05:30 Erythrocyte Sedimentation Rate 128 (0-25) Sodium Level 142 mmol/L (136-145) 141 mmol/L (136-145) Potassium Level 3.8 mmol/L (3.5-5.1) 3.8 mmol/L (3.5-5.1) Chloride Level 109 mmol/L (98-107) 110 mmol/L (98-107) Carbon Dioxide Level 22 mmol/L (21-32) 21 mmol/L (21-32) Anion Gap 11 (6-14) 10 (6-14) Blood Urea Nitrogen 6 mg/dL (7-20) 11 mg/dL (7-20) Creatinine 0.6 mg/dL (0.6-1.0) 0.6 mg/dL (0.6-1.0) Estimated GFR (Cockcroft-Gault) 103.4 103.4 Glucose Level 151 mg/dL (70-99) 122 mg/dL (70-99) Calcium Level 8.7 mg/dL (8.5-10.1) 8.5 mg/dL (8.5-10.1) Phosphorus Level 2.1 mg/dL (2.6-4.7) 4.2 mg/dL (2.6-4.7) Magnesium Level 1.5 mg/dL (1.8-2.4) 1.9 mg/dL (1.8-2.4) Laboratory Tests Test 07/11/19 05:30 Sodium Level 141 mmol/L (136-145) Potassium Level 3.8 mmol/L (3.5-5.1) Chloride Level 110 mmol/L (98-107) Carbon Dioxide Level 21 mmol/L (21-32) Anion Gap 10 (6-14) Blood Urea Nitrogen 11 mg/dL (7-20) Creatinine 0.6 mg/dL (0.6-1.0) Estimated GFR (Cockcroft-Gault) 103.4 Glucose Level 122 mg/dL (70-99) Calcium Level 8.5 mg/dL (8.5-10.1) Phosphorus Level 4.2 mg/dL (2.6-4.7) Magnesium Level 1.9 mg/dL (1.8-2.4) Medications Active Scripts Medications Dose Route/Sig Max Daily Dose Days Date Category [imitrex statdose] 6 Mg SQ PRN PRN 07/06/19 Reported [xifaxan] 07/06/19 Reported Restora Capsule (Om-3/Dha/Epa/Fish Oil/L. Casei) 1 Each Capsule 1 Cap PO DAILY 30 07/06/19 Reported Fluticasone Propionate Nasal [place] (Fluticasone Propionate) 16 Gm [place].susp 2 [place] NS DAILY 07/06/19 Reported Prozac (Fluoxetine Hcl) 10 Mg Capsule 1 Cap PO DAILY 07/06/19 Reported Cyanocobalamin Injection (Cyanocobalamin (Vitamin B-12)) 1,000 Mcg/1 Ml Vial 1 Ml IM QMONTH 07/06/19 Reported Baclofen 20 Mg Tablet 20 Mg PO TID 07/06/19 Reported Oxycodone Hcl 20 Mg Tablet 1 Tab PO PRN BID PRN MDD 2 Tablet(s) 5 07/06/19 Reported Butrans (Buprenorphine) 1 Each Patch.tdwk 1 Each TD Q5DAYS 07/06/19 Reported Topiramate 100 Mg Tablet 1 Tab PO BID 30 07/06/19 Reported Excedrin Migraine Caplet (Aspirin/Acetaminophen/Caffeine) 1 Each Tablet 2 Each PO Q6-8HRS PRN 07/06/19 Reported Belsomra (Suvorexant) 10 Mg Tablet 10 Mg PO QHS 12/23/18 Reported Nystatin 15 Gm Powder 1 [place] TP BID 12/23/18 Reported Gas Relief (Simethicone) 125 Mg Capsule 125 Mg PO PRN PRN 12/23/18 Reported Guaifenesin 400 Mg Tablet 400 Mg PO PRN PRN 12/23/18 Reported [place] (Olopatadine HCl) 2.5 Ml Drops 1 Drop OP DAILY 12/23/18 Reported Propranolol Hcl 10 Mg Tablet 1 Tab PO TID 12/23/18 Reported Ondansetron Odt (Ondansetron) 4 Mg Tab.rapdis 1 Tab PO PRN Q6-8HRS 08/18/18 Reported Sucralfate 1 Gm Tablet 1 Tab PO QID 08/18/18 Reported Advair 100-50 Diskus (Fluticasone/Salmeterol) 1 Each Disk.w.dev 1 Puff IH BID 01/21/17 Reported Protonix (Pantoprazole Sodium) 40 Mg Tablet.dr 1 Tab PO DAILY 01/21/17 Reported Promethazine Hcl 25 Mg Tablet 1 Tab PO PRN Q6HRS 01/21/17 Reported Benadryl (Diphenhydramine Hcl) 25 Mg Capsule 25 Mg PO TID 01/21/17 Reported Sumatriptan Succinate 100 Mg Tablet 1 Tab PO Q6-8HRS PRN 03/11/16 Reported Pravastatin Sodium 40 Mg Tablet 1 Tab PO QHS 03/11/16 Reported Midodrine Hcl 5 Mg Tablet 5 Mg PO TID 03/11/16 Reported Proair Hfa Inhaler (Albuterol Sulfate) 8.5 Gm Hfa.aer.ad 2 Puff IH PRN QID PRN 09/01/15 Reported Levothyroxine Sodium 100 Mcg Tablet 1 Tab PO DAILY 08/30/15 Reported Impression . IMPRESSION: 1. Acute hypoxic respiratory failure secondary to diffuse interstitial pneumonitis, likely viral. 2. Abnormal CT chest with diffuse ground-glass infiltrates without any significant pleural effusion. ACUTE LUNG INJURY 3. No significant history of vaping. 4. History of underlying chronic obstructive pulmonary disease. Unknown FEV1. 5. History of traumatic brain injury. 6. History of gastric bypass surgery. 7. Severe protein-calorie malnutrition. Currently on TPN. 8. Chronic opioid dependence. Plan . SED RATE IS HIGH WILL ADD STEROIDS 1. From a pulmonary standpoint, I will continue with present oxygen to keep saturation 94% and above. 2. Continue present bronchodilators. 3. SED RATE IS HIGH 4. Continue broad spectrum antibiotics per Infectious Disease. BRANDEN WELLS MD Jul 11, 2019 09:34
--- NOTE | 2019-07-11 10:11 | PN ---
DATE: 07/11/2019 SUBJECTIVE: The patient is resting, slightly propped up in bed comfortably in no apparent distress. On questioning her, she continued to have some cough, shortness of breath. She continued to maintain oxygen saturation at 96% on 4 liters oxygen by nasal cannula. PHYSICAL EXAMINATION: GENERAL: On examining her, she looked well, pale, no jaundice, cyanosis or thyromegaly. No jugular venous distention. No lower limb edema. VITAL SIGNS: Her heart rate was 69, blood pressure was 126/70, temperature was 98.2, respiratory rate was 18 and oxygen saturation was 96% on 4 liters of oxygen. HEAD, EYES, EARS, NOSE AND THROAT: Normocephalic, atraumatic. NECK: Supple. CARDIAC: Normal first and second heart sounds. No gallop or murmur. CHEST: Showed central trachea, equal bilateral expansion, air entry, vesicular sounds. I could not really appreciate any crepitation or rhonchi. ABDOMEN: Distended, soft, nontender. NEUROLOGIC: She was awake, alert, responding appropriately. All cranial nerves intact. She moves extremities without difficulty, although she is mostly chair bound. She is able to ambulate for short distance with a walker. Her intake was incompletely recorded, output was 1375. LABORATORY DATA: As of yesterday, her sedimentation rate was high at 128 mm per hour. Her most recent white cell count of 7300, hemoglobin 10, hematocrit 30, MCV 94 and platelet count 212,000. Serum sodium 141, potassium 3.8, chloride 110, bicarbonate 21, anion gap of 10, BUN 11, creatinine 0.6, estimated GFR was 103 mL per minute. Her glucose was 122, calcium was 8.5, phosphorus 4.2 and magnesium was 1.9. ASSESSMENT: 1. Acute hypoxic respiratory failure, improving. Her oxygen requirement is down from 12 liters by Ventimask to 4 liters by nasal cannula. Her oxygen saturation today was 96%. We will attempt to titrate oxygen down. 2. Community-acquired pneumonia, likely due to aspiration, currently on IV Zosyn. She is afebrile, hemodynamically stable. Her white cell count is normal. So far, all her blood cultures are negative. The patient is known to have gastrocolic fistula, has multiple admissions before for similar presentation, has multitude of other medical problems. PLAN: To continue broad-spectrum antibiotic. Continue with nutritional support in the form of TPN, continue to titrate her oxygen down. Hopefully, she can be discharged back home tomorrow. LEE RODRIGUEZ MD DR: MARILEE/ramírez JOB#: [id number] / [id number]
--- NOTE | 2019-07-11 10:38 | PDOC ---
Infectious Disease Note Subjective: Subjective pt says doing better has some headache No fever or chills TPN Vital Signs: Vital Signs Vital Signs Date Time Temp Pulse Resp B/P (MAP) Pulse Ox O2 Delivery O2 Flow Rate FiO2 07/11/19 08:33 69 126/70 07/11/19 08:00 Nasal Cannula 4.0 07/11/19 07:00 98.2 18 94 98.2 Physical Exam: PHYSICAL EXAM GENERAL: Propped up in bed, alert, trying to call son HEENT: Oral cavity clear NECK: Supple, no JVD. LUNGS: Diminshed aeration bases HEART: S1, S2. ABDOMEN: Obese, soft, nontender, bowel sounds present EXTREMITIES: No edema, no cyanosis. DERMATOLOGIC: Warm and dry. NEUROLOGIC: Alert, answers a few questions appropriately Chest wall Port-A-Cath without signs of infection Medications: Inpatient Meds: Current Medications Medications (Trade) Dose Ordered Sig/Sheri Start Time Stop Time Status Last Admin Dose Admin Acetaminophen/ Aspirin/Caffeine (Excedrin Migraine) 2 tab Q6H PRN 07/07/19 10:00 07/07/19 10:40 DC Albuterol Sulfate (Ventolin Neb Soln) 2.5 mg RTQID 07/07/19 12:00 07/11/19 06:18 2.5 MG Amiodarone HCl 150 mg/Dextrose 103 ml @ 618 mls/hr 1X ONCE 07/07/19 11:00 07/07/19 11:09 Cancel Atorvastatin Calcium (Lipitor) 10 mg QHS 07/07/19 21:00 07/10/19 21:28 10 MG Budesonide (Pulmicort) 0.5 mg RTBID 07/07/19 20:00 07/11/19 06:18 0.5 MG Cyanocobalamin (Vitamin B-12) 1,000 mcg QMONTH 08/06/19 09:00 Cyclobenzaprine HCl (Flexeril) 10 mg TID 07/07/19 14:00 Cancel Diphenhydramine HCl (Benadryl) 25 mg TID 07/07/19 14:00 07/11/19 08:33 25 MG Fish Oil (Fish Oil) 1,000 mg DAILY 07/07/19 11:00 07/11/19 08:33 1,000 MG Fluoxetine HCl (PROzac) 10 mg DAILY 07/07/19 11:00 07/11/19 08:32 10 MG Fluticasone Propionate (Flonase) 2 spray DAILY 07/08/19 09:00 07/10/19 09:16 2 SPRAY Guaifenesin (Robitussin) 400 mg PRN Q4HRS PRN 07/07/19 10:30 Info (Tpn Per Pharmacy) 1 each PRN DAILY PRN 07/07/19 13:15 07/10/19 10:39 1 EACH Ketotifen Fumarate (Zaditor) 1 drop BID 07/07/19 21:00 07/11/19 08:37 1 DROP Lactobacillus Rhamnosus (Culturelle) 1 cap BID 07/10/19 21:00 07/11/19 08:33 1 CAP Levothyroxine Sodium (Synthroid) 100 mcg DAILY06 07/07/19 11:00 07/11/19 05:26 100 MCG Magnesium Sulfate 50 ml @ 25 mls/hr 1X ONCE 07/10/19 11:00 07/10/19 12:59 DC 07/10/19 11:12 25 MLS/HR Metoprolol Tartrate (Lopressor Vial) 5 mg 1X STAT 07/07/19 10:21 07/07/19 10:22 Cancel Midodrine (Proamatine) 5 mg [id number] 07/07/19 13:00 07/11/19 05:26 5 MG Morphine Sulfate (Morphine Sulfate) 2 mg PRN Q4HRS PRN 07/06/19 22:15 07/11/19 01:02 2 MG Non-Formulary Medication 1 ea TID 07/07/19 14:00 07/11/19 08:34 1 EA Non-Formulary Medication (Buprenorphine (Butrans)) 1 each Q5DAYS 07/07/19 09:00 07/07/19 14:05 1 EACH Non-Formulary Medication (Fluticasone/ Salmeterol (Advair 100-50 Diskus)) 1 puff BID 07/07/19 21:00 07/07/19 10:38 DC Non-Formulary Medication (Oxycodone Hcl ) 1 tab PRN BID PRN 07/07/19 10:00 07/07/19 10:29 DC Non-Formulary Medication (Suvorexant (Belsomra)) 10 mg DAILY 07/08/19 09:00 UNV Nystatin (Nystop) 1 fatou BID 07/07/19 21:00 07/10/19 21:27 1 FATOU Ondansetron HCl (Zofran Odt) 4 mg PRN Q4HRS PRN 07/07/19 10:00 Ondansetron HCl (Zofran) 4 mg PRN Q8HRS PRN 07/07/19 03:30 07/11/19 01:02 4 MG Oxycodone HCl (Roxicodone) 20 mg BID PRN 07/08/19 09:30 07/09/19 08:14 20 MG Pantoprazole Sodium (Protonix) 40 mg DAILYAC 07/07/19 11:00 07/11/19 08:33 40 MG Piperacillin Sod/ Tazobactam Sod (Zosyn Per Pharmacy) 1 each PRN DAILY PRN 07/06/19 22:15 Piperacillin Sod/ Tazobactam Sod 3.375 gm/Sodium Chloride 50 ml @ 100 mls/hr Q6HRS 07/07/19 00:00 07/11/19 05:26 100 MLS/HR Potassium Phosphate 13.6 mmol/Sodium Chloride 104.5333 ml @ 52.267 m... 1X ONCE 07/10/19 11:00 07/10/19 12:59 DC 07/10/19 11:12 52.267 MLS/HR Promethazine HCl (Phenergan) 25 mg PRN Q6HRS PRN 07/07/19 10:45 Propranolol HCl (Inderal) 10 mg TID 07/07/19 14:00 07/11/19 08:33 10 MG Simethicone (Gas-X) 80 mg PRN AFTMEALHC PRN 07/07/19 10:45 07/08/19 09:01 80 MG Sodium Chloride 90 meq/Potassium Chloride 40 meq/ Potassium Phosphate 20 mmol/ Magnesium Sulfate 20 meq/Calcium Gluconate 10 meq/ Multivitamins 10 ml/Chromium/ Copper/Manganese/ Seleni/Zn 1 ml/ Total Parenteral Nutrition/Amino Acids/Dextrose/ Fat Emulsion Intravenous 1,512 ml @ 63 mls/hr TPN CONT 07/10/19 22:00 07/11/19 21:59 07/10/19 21:29 63 MLS/HR Sodium Chloride 90 meq/Potassium Chloride 50 meq/ Potassium Phosphate 13.6 mmol/Magnesium Sulfate 10 meq/ Calcium Gluconate 10 meq/ Multivitamins 10 ml/Chromium/ Copper/Manganese/ Seleni/Zn 1 ml/ Total Parenteral Nutrition/Amino Acids/Dextrose/ Fat Emulsion Intravenous 1,512 ml @ 63 mls/hr TPN CONT 07/08/19 22:00 07/09/19 21:59 DC 07/08/19 21:34 63 MLS/HR Sodium Chloride 90 meq/Potassium Chloride 50 meq/ Potassium Phosphate 13.6 mmol/Magnesium Sulfate 15 meq/ Calcium Gluconate 10 meq/ Multivitamins 10 ml/Chromium/ Copper/Manganese/ Seleni/Zn 1 ml/ Total Parenteral Nutrition/Amino Acids/Dextrose/ Fat Emulsion Intravenous 1,512 ml @ 63 mls/hr TPN CONT 07/09/19 22:00 07/10/19 21:59 DC 07/09/19 21:28 63 MLS/HR Sucralfate (Carafate) 1 gm QID 07/07/19 13:00 07/11/19 08:33 1 GM Sumatriptan Succinate (Imitrex) 25 mg PRN Q2HR PRN 07/07/19 14:00 07/08/19 09:24 25 MG Topiramate (Topamax) 100 mg BID 07/07/19 11:00 07/11/19 08:33 100 MG Vancomycin HCl (Vanco Per Pharmacy) 1 each PRN DAILY PRN 07/06/19 22:30 07/07/19 08:54 DC 07/06/19 22:48 1 EACH Vancomycin HCl (Vancomycin Trough Level) 1 each 1X ONCE 07/08/19 10:00 07/07/19 08:54 DC Vancomycin HCl 1.5 gm/Sodium Chloride 500 ml @ 250 mls/hr Q12H 07/07/19 10:30 07/07/19 08:53 DC Vancomycin HCl 2 gm/Sodium Chloride 500 ml @ 250 mls/hr 1X ONCE 07/06/19 22:30 07/07/19 00:29 DC 07/06/19 22:36 250 MLS/HR Labs: Lab Laboratory Tests Test 07/11/19 05:30 Sodium Level 141 mmol/L (136-145) Potassium Level 3.8 mmol/L (3.5-5.1) Chloride Level 110 mmol/L (98-107) Carbon Dioxide Level 21 mmol/L (21-32) Anion Gap 10 (6-14) Blood Urea Nitrogen 11 mg/dL (7-20) Creatinine 0.6 mg/dL (0.6-1.0) Estimated GFR (Cockcroft-Gault) 103.4 Glucose Level 122 mg/dL (70-99) Calcium Level 8.5 mg/dL (8.5-10.1) Phosphorus Level 4.2 mg/dL (2.6-4.7) Magnesium Level 1.9 mg/dL (1.8-2.4) Micro BC negative CXR 07/09 Findings/ impression: Mild cardiomegaly. Right-sided Port-A-Cath is identified. Mild diffuse prominent bilateral interstitial lung markings likely congestive changes or interstitial changes again identified. Objective: Assessment: 1. Actue hypoxic resp failure 2. Sepsis, resolved. 3. Lactic acidosis, resolved. 4. Leukocytosis, resolved. 5. History of traumatic brain injury. 6. History of nausea and vomiting. 7. 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 8. History of traumatic brain injury, anxiety, depression, fibromyalgia. 9. The patient is on TPN through right Port-A-Cath. 10. History of hepatitis C, questionable cirrhosis. 11. History of Clostridium difficile. 12. History of gastric bypass surgery and questionable colon resection. 13. History of asthma and chronic obstructive pulmonary disease. Plan: Plan of Care Continue empiric Zosyn (07/07),will deescalate soon BC neg so far Maintain aspiration precaution. GIOVANNA HINKLE MD Jul 11, 2019 10:38
[2019-07-11 11:00] VITALS: BP 111/64
[2019-07-11] MEDS: TPN PER PHARMACY MC PRN (14:45)
[2019-07-11 15:00] VITALS: BP 121/51
--- NOTE | 2019-07-11 15:13 | NUR ---
Pharmacy TPN Dosing Note S: BERNARDO GRUBER is a 58 year old F Currently receiving Central Continuous TPN started B:Pertinent PMH: Severe protein-calorie malnutrition, status post gastric bypass surgery. Height: 5 feet, 3 inches Weight: 93.955716 kg Current diet: CARDIAC LABS: Sodium: 141 Potassium: 3.8 Chloride: 110 Calcium: 8.5 Corrected Calcium: 10.34 Magnesium: 1.9 CO2: 21 SCr: 0.6 Glucose: 122 Albumin: 1.7 AST: 18 ALT: 10 TPN FORMULA: TPN TYPE: Central Continuous AMINO ACIDS: 60 gm DEXTROSE: 195 gm LIPIDS: 20 gm SODIUM CHLORIDE: 90 mEq SODIUM ACETATE: - mEq SODIUM PHOSPHATE: - mmol POTASSIUM CHLORIDE: - mEq POTASSIUM ACETATE: 40 mEq POTASSIUM PHOSPHATE: 15 mmol MAGNESIUM: 20 mEq CALCIUM: 10 mEq INSULIN: - units MULTIPLE VITAMIN: 10 ml TRACE ELEMENTS: 1 ML ml(s) TPN PLAN: change kcl to kacetate 40 meq, decrease kphos to 15 mm R: Continue TPN TONIGHT. Will monitor electrolytes, glucose, and tolerance to TPN. MORALES VILLANUEVA [facility], 07/11/19 [id number]
[2019-07-11] MEDS ORDERED: predniSONE 10 MG TABLET PO ONE (15:30)
[2019-07-11 19:00] VITALS: BP 105/63
[2019-07-11] MEDS: ATORVASTATIN CALCIUM 10 MG TABLET. PO SCH (21:07)
[2019-07-11] MEDS ORDERED: [UNRECOGNIZED DRUG - OTHER] IV SCH ×10 (22:00)
[2019-07-11] MEDS ORDERED: AMINO ACID IV SCH ×10 (22:00)
[2019-07-11] MEDS ORDERED: DEXTROSE 70% IV SCH ×10 (22:00)
[2019-07-11] MEDS ORDERED: TOTAL PARENTERAL NUTRITION IV SCH ×10 (22:00)
[2019-07-11 23:00] VITALS: BP 114/63
[2019-07-12 03:00] VITALS: BP 109/62
[2019-07-12] MEDS: PIPERACILLIN/TAZOBACTAM 3.375 GM in IV NORMAL SALINE 50ML 50 ML IV SCH ×2 (05:34→11:07)
[2019-07-12] MEDS: MIDODRINE 5 MG TABLET PO SCH ×2 (05:34→11:08)
[2019-07-12] MEDS: LEVOTHYROXINE 100 MCG TABLET PO SCH (05:34)
[2019-07-12 06:23] LABS: CALCIUM 8.3 mg/dL (8.5-10.1); CREATININE 0.6 mg/dL (0.6-1.0); GFR 103.4; MAGNESIUM 1.9 mg/dL (1.8-2.4); PHOSPHORUS 5.1 mg/dL (2.6-4.7); POTASSIUM 4.1 mmol/L (3.5-5.1)
[2019-07-12 07:00] VITALS: BP 107/64
[2019-07-12] MEDS: NYSTATIN TOPICAL POWDER 15GM BOTTLE. TP SCH (07:52)
[2019-07-12] MEDS: diphenhydrAMINE HCL 25 MG CAPSULE PO SCH ×2 (07:53→11:08)
[2019-07-12] MEDS: KETOTIFEN FUMARATE 0.025% OPHTH SOLUTION BOTTLE. OU SCH (07:53)
[2019-07-12] MEDS: SUCRALFATE 1 GM TABLET. PO SCH ×2 (07:53→11:08)
[2019-07-12] MEDS: FLUoxetine HCL 10 MG CAPSULE PO SCH (07:53)
[2019-07-12] MEDS: LACTOBACILLUS RHAMNOSUS GG 1 CAPSULE. PO SCH (07:53)
[2019-07-12] MEDS: OMEGA-3 FATTY ACIDS/FISH OIL 1,000 MG CAPSULE. PO SCH (07:53)
[2019-07-12] MEDS: TOPIRAMATE 100 MG TABLET. PO SCH (07:54)
[2019-07-12] MEDS: PANTOPRAZOLE 40 MG TABLET.DR. PO SCH (07:54)
[2019-07-12] MEDS: PROPRANOLOL 10 MG TABLET. PO SCH ×2 (07:54→11:09)
[2019-07-12] MEDS: FLUTICASONE 50MCG/NASAL SPRAY 16GM BOTTLE. NS SCH (07:54)
[2019-07-12] MEDS: BUPRENORPHINE TP SCH (07:55)
[2019-07-12] MEDS: ALBUTEROL SULFATE 2.5 MG/3 ML NEBU. NEB SCH ×3 (08:45→16:00)
[2019-07-12] MEDS: BUDESONIDE 0.5 MG/2 ML NEBU. NEB SCH (08:45)
--- NOTE | 2019-07-12 08:47 | PDOC ---
PULMONARY PROGRESS NOTES Subjective PT STILL SOA COUGH NON PRODUCTIVE Vitals Vital Signs Date Time Temp Pulse Resp B/P (MAP) Pulse Ox O2 Delivery O2 Flow Rate FiO2 07/12/19 08:00 Nasal Cannula 4.0 07/12/19 07:54 63 107/64 07/12/19 07:00 97.5 16 90 97.5 ROS: No Nausea, No Chest Pain, No Abdominal Pain, No Increase Cough General: Alert, No acute distress HEENT: Other Lungs: Crackles Cardiovascular: S1, S2 Abdomen: Soft, Non-tender, Other Neuro Exam: Alert Extremities: Other Skin: Warm Labs Laboratory Tests Test 07/10/19 09:30 07/11/19 05:30 07/12/19 05:45 Erythrocyte Sedimentation Rate 128 (0-25) Sodium Level 142 mmol/L (136-145) 141 mmol/L (136-145) 142 mmol/L (136-145) Potassium Level 3.8 mmol/L (3.5-5.1) 3.8 mmol/L (3.5-5.1) 4.1 mmol/L (3.5-5.1) Chloride Level 109 mmol/L (98-107) 110 mmol/L (98-107) 110 mmol/L (98-107) Carbon Dioxide Level 22 mmol/L (21-32) 21 mmol/L (21-32) 19 mmol/L (21-32) Anion Gap 11 (6-14) 10 (6-14) 13 (6-14) Blood Urea Nitrogen 6 mg/dL (7-20) 11 mg/dL (7-20) 14 mg/dL (7-20) Creatinine 0.6 mg/dL (0.6-1.0) 0.6 mg/dL (0.6-1.0) 0.6 mg/dL (0.6-1.0) Estimated GFR (Cockcroft-Gault) 103.4 103.4 103.4 Glucose Level 151 mg/dL (70-99) 122 mg/dL (70-99) 109 mg/dL (70-99) Calcium Level 8.7 mg/dL (8.5-10.1) 8.5 mg/dL (8.5-10.1) 8.3 mg/dL (8.5-10.1) Phosphorus Level 2.1 mg/dL (2.6-4.7) 4.2 mg/dL (2.6-4.7) 5.1 mg/dL (2.6-4.7) Magnesium Level 1.5 mg/dL (1.8-2.4) 1.9 mg/dL (1.8-2.4) 1.9 mg/dL (1.8-2.4) Laboratory Tests Test 07/12/19 05:45 Sodium Level 142 mmol/L (136-145) Potassium Level 4.1 mmol/L (3.5-5.1) Chloride Level 110 mmol/L (98-107) Carbon Dioxide Level 19 mmol/L (21-32) Anion Gap 13 (6-14) Blood Urea Nitrogen 14 mg/dL (7-20) Creatinine 0.6 mg/dL (0.6-1.0) Estimated GFR (Cockcroft-Gault) 103.4 Glucose Level 109 mg/dL (70-99) Calcium Level 8.3 mg/dL (8.5-10.1) Phosphorus Level 5.1 mg/dL (2.6-4.7) Magnesium Level 1.9 mg/dL (1.8-2.4) Medications Active Scripts Medications Dose Route/Sig Max Daily Dose Days Date Category [imitrex statdose] 6 Mg SQ PRN PRN 07/06/19 Reported [xifaxan] 07/06/19 Reported Restora Capsule (Om-3/Dha/Epa/Fish Oil/L. Casei) 1 Each Capsule 1 Cap PO DAILY 30 07/06/19 Reported Fluticasone Propionate Nasal [place] (Fluticasone Propionate) 16 Gm [place].susp 2 [place] NS DAILY 07/06/19 Reported Prozac (Fluoxetine Hcl) 10 Mg Capsule 1 Cap PO DAILY 07/06/19 Reported Cyanocobalamin Injection (Cyanocobalamin (Vitamin B-12)) 1,000 Mcg/1 Ml Vial 1 Ml IM QMONTH 07/06/19 Reported Baclofen 20 Mg Tablet 20 Mg PO TID 07/06/19 Reported Oxycodone Hcl 20 Mg Tablet 1 Tab PO PRN BID PRN MDD 2 Tablet(s) 5 07/06/19 Reported Butrans (Buprenorphine) 1 Each Patch.tdwk 1 Each TD Q5DAYS 07/06/19 Reported Topiramate 100 Mg Tablet 1 Tab PO BID 30 07/06/19 Reported Excedrin Migraine Caplet (Aspirin/Acetaminophen/Caffeine) 1 Each Tablet 2 Each PO Q6-8HRS PRN 07/06/19 Reported Belsomra (Suvorexant) 10 Mg Tablet 10 Mg PO QHS 12/23/18 Reported Nystatin 15 Gm Powder 1 [place] TP BID 12/23/18 Reported Gas Relief (Simethicone) 125 Mg Capsule 125 Mg PO PRN PRN 12/23/18 Reported Guaifenesin 400 Mg Tablet 400 Mg PO PRN PRN 12/23/18 Reported [place] (Olopatadine HCl) 2.5 Ml Drops 1 Drop OP DAILY 12/23/18 Reported Propranolol Hcl 10 Mg Tablet 1 Tab PO TID 12/23/18 Reported Ondansetron Odt (Ondansetron) 4 Mg Tab.rapdis 1 Tab PO PRN Q6-8HRS 08/18/18 Reported Sucralfate 1 Gm Tablet 1 Tab PO QID 08/18/18 Reported Advair 100-50 Diskus (Fluticasone/Salmeterol) 1 Each Disk.w.dev 1 Puff IH BID 01/21/17 Reported Protonix (Pantoprazole Sodium) 40 Mg Tablet.dr 1 Tab PO DAILY 01/21/17 Reported Promethazine Hcl 25 Mg Tablet 1 Tab PO PRN Q6HRS 01/21/17 Reported Benadryl (Diphenhydramine Hcl) 25 Mg Capsule 25 Mg PO TID 01/21/17 Reported Sumatriptan Succinate 100 Mg Tablet 1 Tab PO Q6-8HRS PRN 03/11/16 Reported Pravastatin Sodium 40 Mg Tablet 1 Tab PO QHS 03/11/16 Reported Midodrine Hcl 5 Mg Tablet 5 Mg PO TID 03/11/16 Reported Proair Hfa Inhaler (Albuterol Sulfate) 8.5 Gm Hfa.aer.ad 2 Puff IH PRN QID PRN 09/01/15 Reported Levothyroxine Sodium 100 Mcg Tablet 1 Tab PO DAILY 08/30/15 Reported Impression . IMPRESSION: 1. Acute hypoxic respiratory failure secondary to diffuse interstitial pneumonitis, likely viral. 2. Abnormal CT chest with diffuse ground-glass infiltrates without any significant pleural effusion. ACUTE LUNG INJURY 3. No significant history of vaping. 4. History of underlying chronic obstructive pulmonary disease. Unknown FEV1. 5. History of traumatic brain injury. 6. History of gastric bypass surgery. 7. Severe protein-calorie malnutrition. Currently on TPN. 8. Chronic opioid dependence. Plan . PT ABOUT THE SAME SED RATE IS HIGH WILL ADD STEROIDS ANTIBX 02 BRANDEN MARES MD Jul 12, 2019 08:47
[2019-07-12] MEDS ORDERED: predniSONE 10 MG TABLET PO SCH (09:00)
[2019-07-12 11:00] VITALS: BP 101/55
--- NOTE | 2019-07-12 11:13 | PDOC ---
Infectious Disease Note Subjective: Subjective pt says doing better eager for dc home today No fever or chills TPN Vital Signs: Vital Signs Vital Signs Date Time Temp Pulse Resp B/P (MAP) Pulse Ox O2 Delivery O2 Flow Rate FiO2 07/12/19 11:09 63 107/64 07/12/19 08:49 98 Nasal Cannula 4.0 07/12/19 07:00 97.5 16 97.5 Physical Exam: PHYSICAL EXAM GENERAL: Propped up in bed, alert, trying to call son HEENT: Oral cavity clear NECK: Supple, no JVD. LUNGS: Diminshed aeration bases HEART: S1, S2. ABDOMEN: Obese, soft, nontender, bowel sounds present EXTREMITIES: No edema, no cyanosis. DERMATOLOGIC: Warm and dry. NEUROLOGIC: Alert, answers a few questions appropriately Chest wall Port-A-Cath without signs of infection Medications: Inpatient Meds: Current Medications Medications (Trade) Dose Ordered Sig/Sheri Start Time Stop Time Status Last Admin Dose Admin Acetaminophen/ Aspirin/Caffeine (Excedrin Migraine) 2 tab Q6H PRN 07/07/19 10:00 07/07/19 10:40 DC Albuterol Sulfate (Ventolin Neb Soln) 2.5 mg RTQID 07/07/19 12:00 07/12/19 08:45 2.5 MG Amiodarone HCl 150 mg/Dextrose 103 ml @ 618 mls/hr 1X ONCE 07/07/19 11:00 07/07/19 11:09 Cancel Atorvastatin Calcium (Lipitor) 10 mg QHS 07/07/19 21:00 07/11/19 21:07 10 MG Budesonide (Pulmicort) 0.5 mg RTBID 07/07/19 20:00 07/12/19 08:45 0.5 MG Cyanocobalamin (Vitamin B-12) 1,000 mcg QMONTH 08/06/19 09:00 Cyclobenzaprine HCl (Flexeril) 10 mg TID 07/07/19 14:00 Cancel Diphenhydramine HCl (Benadryl) 25 mg TID 07/07/19 14:00 07/12/19 11:08 25 MG Fish Oil (Fish Oil) 1,000 mg DAILY 07/07/19 11:00 07/12/19 07:53 1,000 MG Fluoxetine HCl (PROzac) 10 mg DAILY 07/07/19 11:00 07/12/19 07:53 10 MG Fluticasone Propionate (Flonase) 2 spray DAILY 07/08/19 09:00 07/12/19 07:54 2 SPRAY Guaifenesin (Robitussin) 400 mg PRN Q4HRS PRN 07/07/19 10:30 Info (Tpn Per Pharmacy) 1 each PRN DAILY PRN 07/07/19 13:15 07/11/19 14:45 1 EACH Ketotifen Fumarate (Zaditor) 1 drop BID 07/07/19 21:00 07/12/19 07:53 1 DROP Lactobacillus Rhamnosus (Culturelle) 1 cap BID 07/10/19 21:00 07/12/19 07:53 1 CAP Levothyroxine Sodium (Synthroid) 100 mcg DAILY06 07/07/19 11:00 07/12/19 05:34 100 MCG Magnesium Sulfate 50 ml @ 25 mls/hr 1X ONCE 07/10/19 11:00 07/10/19 12:59 DC 07/10/19 11:12 25 MLS/HR Metoprolol Tartrate (Lopressor Vial) 5 mg 1X STAT 07/07/19 10:21 07/07/19 10:22 Cancel Midodrine (Proamatine) 5 mg [id number] 07/07/19 13:00 07/12/19 11:08 5 MG Morphine Sulfate (Morphine Sulfate) 2 mg PRN Q4HRS PRN 07/06/19 22:15 07/11/19 20:08 2 MG Non-Formulary Medication 1 ea TID 07/07/19 14:00 07/12/19 11:08 1 EA Non-Formulary Medication (Buprenorphine (Butrans)) 1 each Q5DAYS 07/07/19 09:00 07/12/19 07:55 1 EACH Non-Formulary Medication (Fluticasone/ Salmeterol (Advair 100-50 Diskus)) 1 puff BID 07/07/19 21:00 07/07/19 10:38 DC Non-Formulary Medication (Oxycodone Hcl ) 1 tab PRN BID PRN 07/07/19 10:00 07/07/19 10:29 DC Non-Formulary Medication (Suvorexant (Belsomra)) 10 mg DAILY 07/08/19 09:00 UNV Nystatin (Nystop) 1 fatou BID 07/07/19 21:00 07/12/19 07:52 1 FATOU Ondansetron HCl (Zofran Odt) 4 mg PRN Q4HRS PRN 07/07/19 10:00 Ondansetron HCl (Zofran) 4 mg PRN Q8HRS PRN 07/07/19 03:30 07/11/19 01:02 4 MG Oxycodone HCl (Roxicodone) 20 mg BID PRN 07/08/19 09:30 07/09/19 08:14 20 MG Pantoprazole Sodium (Protonix) 40 mg DAILYAC 07/07/19 11:00 07/12/19 07:54 40 MG Piperacillin Sod/ Tazobactam Sod (Zosyn Per Pharmacy) 1 each PRN DAILY PRN 07/06/19 22:15 Piperacillin Sod/ Tazobactam Sod 3.375 gm/Sodium Chloride 50 ml @ 100 mls/hr Q6HRS 07/07/19 00:00 07/12/19 11:07 100 MLS/HR Potassium Phosphate 13.6 mmol/Sodium Chloride 104.5333 ml @ 52.267 m... 1X ONCE 07/10/19 11:00 07/10/19 12:59 DC 07/10/19 11:12 52.267 MLS/HR Prednisone (Prednisone) 30 mg DAILY 07/12/19 09:00 07/12/19 07:53 30 MG Promethazine HCl (Phenergan) 25 mg PRN Q6HRS PRN 07/07/19 10:45 Propranolol HCl (Inderal) 10 mg TID 07/07/19 14:00 07/12/19 11:09 10 MG Simethicone (Gas-X) 80 mg PRN AFTMEALHC PRN 07/07/19 10:45 07/08/19 09:01 80 MG Sodium Chloride 90 meq/Potassium Acetate 40 meq/ Potassium Phosphate 15 mmol/ Magnesium Sulfate 20 meq/Calcium Gluconate 10 meq/ Multivitamins 10 ml/Chromium/ Copper/Manganese/ Seleni/Zn 1 ml/ Total Parenteral Nutrition/Amino Acids/Dextrose/ Fat Emulsion Intravenous 1,512 ml @ 63 mls/hr TPN CONT 07/11/19 22:00 07/12/19 21:59 07/11/19 23:26 63 MLS/HR Sodium Chloride 90 meq/Potassium Chloride 40 meq/ Potassium Phosphate 20 mmol/ Magnesium Sulfate 20 meq/Calcium Gluconate 10 meq/ Multivitamins 10 ml/Chromium/ Copper/Manganese/ Seleni/Zn 1 ml/ Total Parenteral Nutrition/Amino Acids/Dextrose/ Fat Emulsion Intravenous 1,512 ml @ 63 mls/hr TPN CONT 07/10/19 22:00 07/11/19 21:59 DC 07/10/19 21:29 63 MLS/HR Sodium Chloride 90 meq/Potassium Chloride 50 meq/ Potassium Phosphate 13.6 mmol/Magnesium Sulfate 10 meq/ Calcium Gluconate 10 meq/ Multivitamins 10 ml/Chromium/ Copper/Manganese/ Seleni/Zn 1 ml/ Total Parenteral Nutrition/Amino Acids/Dextrose/ Fat Emulsion Intravenous 1,512 ml @ 63 mls/hr TPN CONT 07/08/19 22:00 07/09/19 21:59 DC 07/08/19 21:34 63 MLS/HR Sodium Chloride 90 meq/Potassium Chloride 50 meq/ Potassium Phosphate 13.6 mmol/Magnesium Sulfate 15 meq/ Calcium Gluconate 10 meq/ Multivitamins 10 ml/Chromium/ Copper/Manganese/ Seleni/Zn 1 ml/ Total Parenteral Nutrition/Amino Acids/Dextrose/ Fat Emulsion Intravenous 1,512 ml @ 63 mls/hr TPN CONT 07/09/19 22:00 07/10/19 21:59 DC 07/09/19 21:28 63 MLS/HR Sucralfate (Carafate) 1 gm QID 07/07/19 13:00 07/12/19 11:08 1 GM Sumatriptan Succinate (Imitrex) 25 mg PRN Q2HR PRN 07/07/19 14:00 07/08/19 09:24 25 MG Topiramate (Topamax) 100 mg BID 07/07/19 11:00 07/12/19 07:54 100 MG Vancomycin HCl (Vanco Per Pharmacy) 1 each PRN DAILY PRN 07/06/19 22:30 07/07/19 08:54 DC 07/06/19 22:48 1 EACH Vancomycin HCl (Vancomycin Trough Level) 1 each 1X ONCE 07/08/19 10:00 07/07/19 08:54 DC Vancomycin HCl 1.5 gm/Sodium Chloride 500 ml @ 250 mls/hr Q12H 07/07/19 10:30 07/07/19 08:53 DC Vancomycin HCl 2 gm/Sodium Chloride 500 ml @ 250 mls/hr 1X ONCE 07/06/19 22:30 07/07/19 00:29 DC 07/06/19 22:36 250 MLS/HR Labs: Lab Laboratory Tests Test 07/12/19 05:45 Sodium Level 142 mmol/L (136-145) Potassium Level 4.1 mmol/L (3.5-5.1) Chloride Level 110 mmol/L (98-107) Carbon Dioxide Level 19 mmol/L (21-32) Anion Gap 13 (6-14) Blood Urea Nitrogen 14 mg/dL (7-20) Creatinine 0.6 mg/dL (0.6-1.0) Estimated GFR (Cockcroft-Gault) 103.4 Glucose Level 109 mg/dL (70-99) Calcium Level 8.3 mg/dL (8.5-10.1) Phosphorus Level 5.1 mg/dL (2.6-4.7) Magnesium Level 1.9 mg/dL (1.8-2.4) Micro BC negative CXR 07/09 Findings/ impression: Mild cardiomegaly. Right-sided Port-A-Cath is identified. Mild diffuse prominent bilateral interstitial lung markings likely congestive changes or interstitial changes again identified. Objective: Assessment: 1. Actue hypoxic resp failure 2. Sepsis, resolved. 3. Lactic acidosis, resolved. 4. Leukocytosis, resolved. 5. History of traumatic brain injury. 6. History of nausea and vomiting. 7. 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 8. History of traumatic brain injury, anxiety, depression, fibromyalgia. 9. The patient is on TPN through right Port-A-Cath. 10. History of hepatitis C, questionable cirrhosis. 11. History of Clostridium difficile. 12. History of gastric bypass surgery and questionable colon resection. 13. History of asthma and chronic obstructive pulmonary disease. Plan: Plan of Care irving zoyuri benitezin, script in chart f/u with pcp GIOVANNA HINKLE MD Jul 12, 2019 11:13
--- NOTE | 2019-07-12 14:02 | NUR ---
SW following pt. Pt is currently on service with [facility] for TPN and has used [facility] in the past. SW faxed referral to [facility] and [facility]. Awaiting on resumption orders from EMR. Both unable to accept TOV orders. RN has notified Physician.
[2019-07-12] MEDS: SUMAtriptan SUCCINATE 25 MG TABLET PO PRN (14:03)
[2019-07-12] MEDS: TPN PER PHARMACY MC PRN (14:38)
--- NOTE | 2019-07-12 14:38 | NUR ---
Pharmacy TPN Dosing Note S: BERNARDO GRUBER is a 58 year old F Currently receiving [facility] Continuous TPN started B:Pertinent PMH: Severe protein-calorie malnutrition, status post gastric bypass surgery. Height: 5 feet, 3 inches Weight: 93.9 kg Current diet: CARDIAC LABS: Sodium: 142 Potassium: 4.1 Chloride: 110 Calcium: 8.3 Corrected Calcium: 10.14 Magnesium: 1.9 CO2: 19 SCr: 0.6 Glucose: 109 Albumin: 1.7 AST: 18 ALT: 10 TPN FORMULA: TPN TYPE: Central Continuous AMINO ACIDS: 60 gm DEXTROSE: 195 gm LIPIDS: 20 gm SODIUM ACETATE: 90 mEq POTASSIUM ACETATE: 40 mEq POTASSIUM PHOSPHATE: 6.8 mmol MAGNESIUM: 20 mEq CALCIUM: 10 mEq MULTIPLE VITAMIN: 10 ml TRACE ELEMENTS: 1 ml TPN PLAN: -Change NaCl to NaAC to account for electrolyte abnormalities. -Reduce KPhos to 6.8 mmol/day due to elevated serum phos. -BMP, mag, phos tomorrow if staying. R: Continue TPN @ current rate and above formula. Will monitor electrolytes, glucose, and tolerance to TPN. LILA LIM [facility], 07/12/19 [id number]
[2019-07-12 15:00] VITALS: BP 101/55
--- NOTE | 2019-07-12 15:19 | SNU/HH DC ---
DISCHARGE WITH HOME HEALTH DISCHARGE INFORMATION: Discharge Date: Jul 12, 2019 Final Diagnosis: Problems Medical Problems: (1) Nausea and vomiting Status: Acute Condition on Discharge: Stable CODE STATUS: Code Status: Full HOME HEALTH: Face to Face: I certify this patient is under my care and that I, or a nurse practitioner or physician's household personal assistant working with me, had a face to face encounter that meets the physician face to face encounter requirements with this patient on 07/12/19 Medical Complications: Pneumonia Fpc For: Admin/Educate Injections RN For Eval/Treatment: Yes Physical Therapy For: Evalulation/Treatment Occupational Therapy For: Evaluation/Treatment Pt Meets Homebound Status: Limited distance walking POST DISCHARGE ORDERS: Activity Instructions for Disc: Resume previous activity, Activity as tolerated Weight Bearing Status after Di: As tolerated DIET AFTER DISCHARGE: Wound/Incision Care: Keep wound/cast CDI CERTIFICATION STATEMENT: Certification Statement: Certification Statement: Based on the above finding, I certify that this patient is confined to the home and needs intermittent intermediate care, physical therapy and/or speech therapy, or continues to need occupational therapy.~ This patient is under my care, and I have initiated the establishment of the plan of care.~ This patient will be followed by myself or a community physician who will periodically review the plan of care. Home Meds Reported Medications [imitrex statdose] No Conflict Check, 6 MG SQ PRN PRN for MIGRAINE HEADACHE 07/06/19 Om-3/Dha/Epa/Fish Oil/L. Casei (RESTORA CAPSULE) 1 Each Capsule, 1 CAP PO DAILY for probiotic for 30 Days, #30 CAP 0 Refills 07/06/19 Fluticasone Propionate (FLUTICASONE PROPIONATE NASAL SPRAY) 16 Gm [place].susp, 2 SPRAY NS DAILY for allergies, #1 INHALER 11 Refills 07/06/19 Fluoxetine Hcl (PROZAC) 10 Mg Capsule, 1 CAP PO DAILY for depression, #30 CAP 1 Refill 07/06/19 Cyanocobalamin (Vitamin B-12) (CYANOCOBALAMIN INJECTION) 1,000 Mcg/1 Ml Vial, 1 ML IM QMONTH for b-12 deficiency, #1 VIAL 3 Refills 07/06/19 Baclofen (BACLOFEN) 20 Mg Tablet, 20 MG PO TID for MUSCLE RELAXER, #30 TAB 0 Refills 07/06/19 Oxycodone Hcl (OXYCODONE HCL) 20 Mg Tablet, 1 TAB PO PRN BID PRN for pain MDD 2 Tablet(s) for 5 Days, #10 TAB 0 Refills 07/06/19 Buprenorphine (BUTRANS) 1 Each Patch.tdwk, 1 EACH TD Q5DAYS for pain, PATCH 07/06/19 Topiramate (TOPIRAMATE) 100 Mg Tablet, 1 TAB PO BID for migraine for 30 Days, #60 TAB 0 Refills 07/06/19 Aspirin/Acetaminophen/Caffeine (EXCEDRIN MIGRAINE CAPLET) 1 Each Tablet, 2 EACH PO Q6-8HRS PRN for MIGRAINE HEADACHE, TAB 07/06/19 Suvorexant (Belsomra) 10 Mg Tablet, 10 MG PO QHS for INSOMNIA, TAB 12/23/18 Nystatin (NYSTATIN) 15 Gm Powder, 1 JUDY TP BID for yeast, #1 BOTTLE 12/23/18 Simethicone (GAS RELIEF) 125 Mg Capsule, 125 MG PO PRN PRN for GAS / BLOATING, CAP 12/23/18 Guaifenesin (GUAIFENESIN) 400 Mg Tablet, 400 MG PO PRN PRN for COUGH, TAB 12/23/18 Olopatadine HCl (Pazeo) 2.5 Ml Drops, 1 DROP OP DAILY for rx, DROP 12/23/18 Propranolol Hcl (PROPRANOLOL HCL) 10 Mg Tablet, 1 TAB PO TID for rx, #60 TAB 1 Refill 12/23/18 Ondansetron (ONDANSETRON ODT) 4 Mg Tab.rapdis, 1 TAB PO PRN Q6-8HRS for nausea, #16 TAB 08/18/18 Sucralfate (SUCRALFATE) 1 Gm Tablet, 1 TAB PO QID for , #120 TAB 3 Refills 08/18/18 Fluticasone/Salmeterol (ADVAIR 100-50 DISKUS) 1 Each Disk.w.dev, 1 PUFF IH BID, #1 INHALER 5 Refills 01/21/17 Pantoprazole Sodium (PROTONIX ) 40 Mg Tablet.dr, 1 TAB PO DAILY, #30 TAB 5 Refills 01/21/17 Promethazine Hcl (PROMETHAZINE HCL) 25 Mg Tablet, 1 TAB PO PRN Q6HRS, #20 TAB 01/21/17 Diphenhydramine Hcl (BENADRYL) 25 Mg Capsule, 25 MG PO TID, CAP 01/21/17 Sumatriptan Succinate (SUMATRIPTAN SUCCINATE) 100 Mg Tablet, 1 TAB PO Q6-8HRS PRN for MIGRAINE HEADACHE, #9 TAB 3 Refills 03/11/16 Pravastatin Sodium (PRAVASTATIN SODIUM) 40 Mg Tablet, 1 TAB PO QHS, #90 TAB 1 Refill 03/11/16 Midodrine Hcl (MIDODRINE HCL) 5 Mg Tablet, 5 MG PO TID 03/11/16 Albuterol Sulfate (PROAIR HFA INHALER) 8.5 Gm Hfa.aer.ad, 2 PUFF IH PRN QID PRN for SHORTNESS OF BREATH, #1 INHALER 09/01/15 Levothyroxine Sodium (LEVOTHYROXINE SODIUM) 100 Mcg Tablet, 1 TAB PO DAILY, #30 TAB 5 Refills 08/30/15 Discontinued Reported Medications [xifaxan] No Conflict Check 07/06/19 Fluoxetine Hcl (PROZAC) 40 Mg Capsule, 1 CAP PO DAILY for dep/anx, #30 CAP 3 Refills 06/06/19 Acetaminophen (ACETAMINOPHEN) 500 Mg Tablet, 1 TAB PO Q6HRS for pain/temp, #60 TAB 12/23/18 Sucralfate (SUCRALFATE) 1 Gm Tablet, 1 GM PO HS for rx, TAB 12/23/18 Baclofen (BACLOFEN) 10 Mg Tablet, 2 TAB PO TID PRN for MUSCLE SPASMS, #90 TAB 2 Refills 1-2 01/21/17 Oxycodone Hcl (OXYCODONE HCL) 5 Mg Capsule, 20 MG PO TID PRN for PAIN, #90 CAP 03/11/16 Ranitidine Hcl (RANITIDINE HCL) 150 Mg Tablet, 1 TAB PO BID, #180 TAB 3 Refills 08/30/15 LEE RODRIGUEZ MD Jul 12, 2019 15:19
--- NOTE | 2019-07-12 15:51 | NUR ---
Discharge Note: BERNARDO GRUBER [address] Discharge instructions and discharge home medications reviewed with Patient and a copy given. All questions have been answered and understanding verbalized. The following instructions and handouts were given: d/c instructions PORT left accessed d/t patient has home TPN continuous. Discontinued lines and drains: Port A Cath intact. Patient discharged to Home w/services with Family Member via Wheelchair
--- NOTE | 2019-07-12 15:56 | NUR ---
ELDER phoned and faxed orders to [facility] and [facility] (will see pt on ). Left message for Braulio at [facility].
[2019-07-12] MEDS ORDERED: AMINO ACID IV SCH ×10 (22:00)
[2019-07-12] MEDS ORDERED: TOTAL PARENTERAL NUTRITION IV SCH ×10 (22:00)
[2019-07-12] MEDS ORDERED: [UNRECOGNIZED DRUG - OTHER] IV SCH ×10 (22:00)
[2019-07-12] MEDS ORDERED: DEXTROSE 70% IV SCH ×10 (22:00)
--- NOTE | 2019-07-13 01:19 | PN ---
DATE: 07/12/2019 SUBJECTIVE: The patient is resting, slightly propped up in bed, no apparent distress. She is awake, alert. Denied any chest pain and feeling generally much better. She would like to go home. She is on 2 liters of oxygen and DOWN FILLER found her without oxygen the oxygen saturation of 93%. PHYSICAL EXAMINATION: GENERAL: When I examined her this morning, she looked well, no jaundice, cyanosis or thyromegaly. No jugular venous distension. No lower limb edema. VITAL SIGNS: Her heart rate was 63, blood pressure 107/64, temperature was 97.5, respiratory rate was 16, and oxygen saturation was 93% on room air. HEAD, EYES, EARS, NOSE AND THROAT: Showed normocephalic, atraumatic. NECK: Supple. HEART: Showed normal first and second sounds, no gallop or murmur. CHEST: Clear to auscultation. No crepitation or rhonchi. ABDOMEN: Distended, soft, nontender. NEUROLOGIC: She is awake, alert, responding appropriately. All cranial nerves intact. She moves extremities without difficulty. She is normally bedbound, wheelchair bound; however, she is able to walk with a walker for short distances. Her intake was 1300, output was 1375. LABORATORY DATA: As of this morning, her serum sodium was 142, potassium 4.1, chloride 110, bicarbonate 19, anion gap of 13, BUN 14, creatinine 0.6, estimated GFR was 103 mL per minute, her glucose 109, calcium was 8.3, phosphorus 5.1, magnesium was 1.9. ASSESSMENT: 1. Acute hypoxic respiratory failure, improving. Her oxygen requirement is down from 12 liters to 2 liters, trying to keep her with discontinued oxygen to see how she does without it. 2. Community-acquired pneumonia, likely aspiration, currently on IV Zosyn. She is afebrile, hemodynamically stable. Her white cell count is normal so far, all her blood cultures are negative. 3. The patient does not have a gastrocolic fistula with multiple admissions before for similar presentation. 4. Multiple other medical problems including chronic obstructive pulmonary disease, morbid obesity, obstructive sleep apnea, and chronic liver disease. PLAN: To continue with nutritional support. Await the evaluation by the Infectious Disease and if switched to oral antibiotics, she can be discharged home with home health. LEE RODRIGUEZ MD DR: Meño JOB#: [id number] / [id number]
[2019-08-06] MEDS ORDERED: CYANOCOBALAMIN (VITAMIN B-12) 1,000 MCG/ML VIAL IM SCH (09:00)
== END 2019-07-12 16:38 | disposition home or self-care (01) | DRG 871 ==
LOC: 1 WEST ICU 20:35 → 5 SOUTH 07-07 16:19
PROVIDERS: ADMIT Internal Medicine; ATTEND Internal Medicine
DX: A41.9 Sepsis, unspecified organism (principal); J69.0 Pneumonitis due to inhalation of food and vomit; J96.01 Acute respiratory failure with hypoxia; E43 Unspecified severe protein-calorie malnutrition; F11.20 Opioid dependence, uncomplicated; D18.09 Hemangioma of other sites; D63.8 Anemia in other chronic diseases classified elsewhere; E03.9 Hypothyroidism, unspecified; E66.01 Morbid (severe) obesity due to excess calories; F10.20 Alcohol dependence, uncomplicated; F32.9 Major depressive disorder, single episode, unspecified; F41.9 Anxiety disorder, unspecified; G43.909 Migraine, unspecified, not intractable, without status migrainosus; G47.33 Obstructive sleep apnea (adult) (pediatric); G89.4 Chronic pain syndrome; J44.9 Chronic obstructive pulmonary disease, unspecified; J84.89 Other specified interstitial pulmonary diseases; K21.9 Gastro-esophageal reflux disease without esophagitis; K52.9 Noninfective gastroenteritis and colitis, unspecified; K74.60 Unspecified cirrhosis of liver; M79.7 Fibromyalgia; Z80.1 Family history of malignant neoplasm of trachea, bronchus and lung; Z80.3 Family history of malignant neoplasm of breast; Z80.8 Family history of malignant neoplasm of other organs or systems; Z82.0 Family history of epilepsy and other diseases of the nervous system; Z82.49 Family history of ischemic heart disease and other diseases of the circulatory system; Z87.820 Personal history of traumatic brain injury; Z87.891 Personal history of nicotine dependence; Z98.84 Bariatric surgery status
CPT/HCPCS: 36415; 71045; 80048; 80053; 83605; 83735; 84100; 84478; 85025; 85651; 87040; 94640; 94760; J0610; J2270; J2405; J2543; J3030; J3370; J3475; J3480; J7030; J7040; J7512; J7613; J7626; Q0163; G0378